=== PATIENT | male | born 1960 | race African-American/Black ===

== ENCOUNTER 2017-11-30 | Emergency (ER) | payer OTHER ==
--- OUTSIDE RECORDS SUMMARY | 2017-11-30 08:54 | XMS REPORT | Clinical Summary ---
:1960 Author Organization [facility] Address [address] [place] [address] Care Team Providers Name Role Phone Bebo Angel MD Primary Care Provider Allergies Active Allergy Reactions Severity Noted Date Comments Amoxicillin-Pot Clavulanate 07/30/2016 Ciprofloxacin 07/30/2016 Current Medications Prescription Sig. Disp. Refills Start Date End Date Status citalopram (CeleXA) Take 40 mg Active 40 MG tablet by mouth daily. ALPRAZolam (XANAX) Take 0.5 mg Active 0.5 MG tablet by mouth as needed for anxiety. chlorproMAZINE Take 400 mg Active (THORAZINE) 100 MG by mouth tablet nightly. risperiDONE Take 3 mg by Active (RisperDAL) 3 MG mouth daily. tablet omeprazole (PriLOSEC) Take 40 mg Active 40 MG capsule by mouth daily. traZODone 150 mg Take 150 mg Active tablet extended by mouth release 24 hr daily. bisoprolol (ZEBETA) Take 1 90 tablet 1 02/27/2017 Active 10 MG tablet tablet (10 mg total) by mouth daily. bisoprolol (ZEBETA) Take 10 mg 02/27/2017 Discontinued 10 MG tablet by mouth daily. Active Problems Problem Noted Date Trigger finger of right thumb 03/19/2017 Tendinitis of finger 03/19/2017 Anxiety disorder 01/09/2017 Seasonal allergic rhinitis due to pollen 07/30/2016 Essential hypertension 08/26/2005 Schizophrenia Encounters Date Type Specialty Care Team Description 06/20/2017 Telephone Family Medicine Bebo Angel MD 06/19/2017 Telephone Internal Medicine Bebo Angel, Other osteoarthritis MD involving multiple joints (Primary Dx) 06/04/2017 Telephone Internal Medicine Bebo Angel MD 05/07/2017 Office Visit Orthopedic Surgery Matt Minaya, Trigger finger of right thumb (Primary Dx); Thumb pain, right; Tendinitis of finger 04/12/2017 Telephone Internal Medicine Bebo Angel MD 03/19/2017 Office Visit Orthopedic Surgery Matt Minaya, Trigger finger of right thumb (Primary Dx); Thumb pain, right; Tendinitis of finger 02/27/2017 Office Visit Internal Medicine Bebo Angel, Essential hypertension (Primary Dx); Thumb pain, right; Other schizophrenia; Anxiety disorder, unspecified type; Routine general medical examination at a health care facility 01/09/2017 Lab Lab Bebo Angel, Essential hypertension 01/09/2017 Office Visit Internal Medicine Bebo Angel, Essential hypertension (Primary Dx); CKD (chronic kidney disease), stage 2 (mild); Anxiety disorder, unspecified type; Schizophrenia, unspecified type after 11/29/2016 Family History Medical History Relation Name Comments Diabetes Brother Heart disease Brother Diabetes Father Diabetes Mother Hypertension Mother Relation Name Status Comments Brother Father Mother Social History Tobacco Use Types Packs/Day Years Used Date Never Smoker Alcohol Use Drinks/Week oz/Week Comments No Sex Assigned at Date Recorded Not on file Last Filed Vital Signs Vital Sign Reading Time Taken Blood Pressure 140/86 02/27/2017 11:58 AM CDT Pulse 79 02/27/2017 11:41 AM CDT Temperature 36.7 C (98 F) 01/09/2017 11:56 AM CDT Respiratory Rate 16 02/27/2017 11:41 AM CDT Oxygen Saturation 99% 02/27/2017 11:41 AM CDT Inhaled Oxygen Concentration - - Weight 95.3 kg (210 lb) 02/27/2017 11:41 AM CDT Height 170.2 cm (5' 7") 02/27/2017 11:41 AM CDT Body Mass Index 32.89 02/27/2017 11:41 AM CDT Plan of Treatment Health Maintenance Due Date Last Done Comments COLONOSCOPY 2008 INFLUENZA VACCINE 03/26/2018 Procedures Procedure Name Priority Date/Time Associated Diagnosis Comments ND INJECT TENDON Routine 05/07/2017 9:57 AM Thumb pain, right Results for this SHEATH/LIGAMENT CDT Trigger finger of procedure are in right thumb the results Tendinitis of finger section. ND INJECT TENDON Routine 03/20/2017 4:38 PM Trigger finger of Results for this SHEATH/LIGAMENT CDT right thumb procedure are in Tendinitis of finger the results section. after 11/29/2016 Results US Renal (05/14/2017 9:45 AM) Specimen Performing Laboratory [facility] [address] [place] [address] Narrative EXAMINATION:US RENAL CLINICAL HISTORY:N18.2 Chronic kidney diseasestage 2 (mild), Elevated abnormal renal function tests COMPARISON:None. FINDINGS: There is increased echogenicity of left renal cortex. There is no evidence of any solid renal mass, calculi, or hydronephrosis. The right kidney is absent. The left kidney qzshqtei49.3 x 6.6 x 5.3cm. Cortical thickness: 1.8 cm. The urinary bladder is unremarkable. IMPRESSION: 1. Absence of right kidney, congenital as per clinical information. 2. There is increased echogenicity of left renal cortex suggestive for chronic medical kidney disease. 3. Negative for nephrolithiasis or hydronephrosis. [id number] Procedure Note Interface, Radiology Results Incoming - 05/14/2017 10:30 AM CDT EXAMINATION: US RENAL CLINICAL HISTORY: N18.2 Chronic kidney disease stage 2 (mild), Elevated abnormal renal function tests COMPARISON: None. FINDINGS: There is increased echogenicity of left renal cortex. There is no evidence of any solid renal mass, calculi, or hydronephrosis. The right kidney is absent. The left kidney measures 12.3 x 6.6 x 5.3 cm. Cortical thickness: 1.8 cm. The urinary bladder is unremarkable. IMPRESSION: 1. Absence of right kidney, congenital as per clinical information. 2. There is increased echogenicity of left renal cortex suggestive for chronic medical kidney disease. 3. Negative for nephrolithiasis or hydronephrosis. [id number] Hand/Upper Extremity Injection/Arthrocentesis (05/07/2017 9:57 AM) Narrative Matt Minaya MD 05/07/20179:57 AM Hand/Upper Extremity Injection/Arthrocentesis Date/Time: 05/07/2017 9:38 AM Consent given by: patient Supporting Documentation Indications: pain Procedure Details Condition: trigger finger Site: R thumb Location: - R thumb A1 Right side: Needle size: 25 G Approach: anterior Right thumb medications administered: 1 mL lidocaine 10 mg/mL (1 %); 6 mg betamethasone acetate & sodium phosphate 6 mg/mL Patient tolerance: patient tolerated the procedure well with no immediate complications Injection Type: tendon sheath Hand/Upper Extremity Injection/Arthrocentesis (03/20/2017 4:38 PM) Narrative Matt Minaya MD 03/20/20174:38 PM Hand/Upper Extremity Injection/Arthrocentesis Date/Time: 03/19/2017 11:30 AM Consent given by: patient Supporting Documentation Indications: pain Procedure Details Condition: trigger finger Site: R thumb Location: - R thumb A1 Right side: Needle size: 25 G Approach: anterior Right thumb medications administered: 6 mg betamethasone acet,sod phos 6 mg/mL; 1 mL lidocaine 10 mg/mL (1 %) Patient tolerance: patient tolerated the procedure well with no immediate complications Injection Type: tendon sheath XR Finger 2+ Vw Right (03/19/2017 9:37 AM) Specimen Performing Laboratory [address] [address] Narrative 3 views right thumb in good penetrance and quality with out any acute obvious fractures, dislocations or calcifications unless HPI states otherwise. Urinalysis, automated with microscopy (01/09/2017 12:26 PM) Component Value Ref Range Color, UA YELLOW YELLOW Appearance CLOUDY (A) CLEAR Specific gravity, urine 1.022 1.001 - 1.035 pH, urine 8.0 5.0 - 8.0 Glucose, urine NEGATIVE NEGATIVE Bilirubin, UA NEGATIVE NEGATIVE Ketones, UA NEGATIVE NEGATIVE Occult blood, urine NEGATIVE NEGATIVE Protein, UA TRACE (A) NEGATIVE Nitrite, UA NEGATIVE NEGATIVE Leukocyte esterase, UA NEGATIVE NEGATIVE WBC, UA NONE SEEN < OR=5 /HPF RBC, UA 0-2 < OR=2 /HPF Squamous epithelial cells, UA NONE SEEN < OR=5 /HPF Bacteria, UA NONE SEEN NONE SEEN /HPF Hyaline casts, UA NONE SEEN NONE SEEN /LPF Specimen Performing Laboratory [facility] Basic metabolic panel (01/09/2017 12:26 PM) Component Value Ref Range Glucose 73 65 - 99 mg/dL Comment: Fasting reference interval BUN, whole blood 16 7 - 25 mg/dL Creatinine 1.20 0.70 - 1.33 mg/dL Comment: For patients >49 years of age, the reference limit for Creatinine is approximately 13% higher for people identified as -Mosotho. EGFR Non-Afr. Mosotho 66 > OR=60 mL/min/1.73m2 EGFR 77 > OR=60 mL/min/1.73m2 BUN/creatinine ratio NOT APPLICABLE 6 - 22 (calc) Sodium 138 135 - 146 mmol/L Potassium 4.2 3.5 - 5.3 mmol/L Chloride 106 98 - 110 mmol/L CO2 28 20 - 31 mmol/L Calcium 9.2 8.6 - 10.3 mg/dL Specimen Performing Laboratory [facility] after 11/29/2016 Insurance Payer Benefit Plan / Group Subscriber ID Type Phone Address MEDICARE MEDICARE PART A AND B xxxxxxxxxx Medicare [place], [place] Home: [address] [facility] [phone] [address]
--- NOTE | 2017-11-30 10:18 | EDPHYS ---
Physician Documentation [facility] Name: Lucille King Age: 57 yrs Sex: Male : 1960 Arrival Date: 11/30/2017 Time: 08:56 Bed 19 Private MD: ED Physician Daniel Joshi HPI: 11/30 09:46 This 57 yrs old Black Male presents to ER via Ambulatory with complaints of kav Hemorrhoids, Asthma Exacerbation, Cough. 10:05 Onset: The symptoms/episode began/occurred 3 day(s) ago. Associated signs and symptoms: kav Pertinent positives: cough, earache, sore throat, Pertinent negatives: chest pain, fever, headache, nasal discharge, shortness of breath, vomiting, wheezing. 10:05 The patient or guardian reports cough, that is intermittent, described as mild, with no kav sputum. Modifying factors: The symptoms are alleviated by nothing. the symptoms are aggravated by nothing. Associated signs and symptoms: Pertinent positives: sore throat, Pertinent negatives: chest pain, nausea, rhinorrhea, vomiting. Severity of symptoms: At their worst the symptoms were mild just prior to arrival. The patient has not experienced similar symptoms in the past. The patient has not recently seen a physician. presents with chief c/o acute onset of non-productive cough. Historical: - Allergies: 09:24 Bactrim; ss 09:24 Cipro; ss - Home Meds: 10:15 Albuterol Inhl [Active]; citalopram 40 mg tab 1 tab once daily [Active]; Flovent Inhl hj [Active]; Omeprazole Oral [Active]; Respiradone [Active]; simvastatin 20 mg Oral tab 1 tab once daily [Active]; thorazine 200 mg daily [Active]; Xanax 0.5 mg Oral tab 1 tab 3 times per day [Active]; Zebeta 10 mg Oral tab 1 tab once daily [Active]; - PMHx: 09:24 Asthma; Depression; Hyperlipidemia; Hypertension; Anxiety; ss - PSHx: 09:24 None; ss - Immunization history:: Adult Immunizations unknown. - Social history:: Smoking status: Patient/guardian denies using tobacco. - Family history:: not pertinent. - Hospitalizations: : No recent hospitalization is reported. ROS: 10:07 Constitutional: Negative for fever, chills, and weight loss, Eyes: Negative for injury, kav pain, redness, and discharge, ENT: Negative for injury, pain, and discharge, Neck: Negative for injury, pain, and swelling, Cardiovascular: Negative for chest pain, palpitations, and edema, Abdomen/GI: Negative for abdominal pain, nausea, vomiting, diarrhea, and constipation, Back: Negative for injury and pain, : Negative for injury, bleeding, discharge, and swelling, MS/Extremity: Negative for injury and deformity, Skin: Negative for injury, rash, and discoloration, Neuro: Negative for headache, weakness, numbness, tingling, and seizure, Psych: Negative for depression, anxiety, suicide ideation, homicidal ideation, and hallucinations, Allergy/Immunology: Negative for hives, rash, and allergies, Hematologic/Lymphatic: Negative for swollen nodes, abnormal bleeding, and unusual bruising. 10:12 Abdomen/GI: Positive for hemorrhoids. kav Exam: 10:12 Constitutional: This is a well developed, well nourished patient who is awake, alert, kav and in no acute distress. Head/Face: Normocephalic, atraumatic. Eyes: Pupils equal round and reactive to light, extra-ocular motions intact. Lids and lashes normal. Conjunctiva and sclera are non-icteric and not injected. Cornea within normal limits. Periorbital areas with no swelling, redness, or edema. ENT: Nares patent. No nasal discharge, no septal abnormalities noted. Tympanic membranes are normal and external auditory canals are clear. Oropharynx with no redness, swelling, or masses, exudates, or evidence of obstruction, uvula midline. Mucous membranes moist. Neck: Trachea midline, no thyromegaly or masses palpated, and no cervical lymphadenopathy. Supple, full range of motion without nuchal rigidity, or vertebral point tenderness. No Meningismus. Chest/axilla: Normal chest wall appearance and motion. Nontender with no deformity. No lesions are appreciated. Cardiovascular: Regular rate and rhythm with a normal S1 and S2. No gallops, murmurs, or rubs. Normal PMI, no JVD. No pulse deficits. Abdomen/GI: Soft, non-tender, with normal bowel sounds. No distension or tympany. No guarding or rebound. No evidence of tenderness throughout. Back: No spinal tenderness. No costovertebral tenderness. Full range of motion. Skin: Warm, dry with normal turgor. Normal color with no rashes, no lesions, and no evidence of cellulitis. MS/ Extremity: Pulses equal, no cyanosis. Neurovascular intact. Full, normal range of motion. Neuro: Awake and alert, GCS 15, oriented to person, place, time, and situation. Cranial nerves II-XII grossly intact. Motor strength 5/5 in all extremities. Sensory grossly intact. Cerebellar exam normal. Normal gait. Psych: Awake, alert, with orientation to person, place and time. Behavior, mood, and affect are within normal limits. 10:12 Respiratory: the patient does not display signs of respiratory distress, Respirations: normal, no acute changes, Breath sounds: decreased breath sounds, that are mild, are located in both bases. 10:12 Abdomen/GI: Inspection: abdomen appears normal, Bowel sounds: active, Palpation: kav abdomen is soft and non-tender, Rectal exam: hemorrhoid(s), external. Vital Signs: 09:24 BP 155 / 102; Pulse 97; Resp 16; Temp 97.5(TE); Pulse Ox 95% on R/A; Weight 92.08 kg; ss Height 5 ft. 7 in. (170.18 cm); Pain 7/10; 09:24 Body Mass Index 31.79 (92.08 kg, 170.18 cm) ss MDM: 09:56 Patient medically screened. kav 10:12 Differential diagnosis: bronchitis, flu, URI. Data reviewed: vital signs, nurses notes. kav Administered Medications: No medications were administered Disposition: 18:37 Co-signature as Attending Physician, Daniel Joshi MD. rn Disposition: 11/30/17 10:17 Discharged to Home. Impression: Acute bronchitis, unspecified, Other hemorrhoids. - Condition is Stable. - Discharge Instructions: Acute Bronchitis, [id number]-Ixmv, Hemorrhoids, Lbcm-eg-Alwy. - Prescriptions for Zithromax Z- Tanner 250 mg Oral Tablet - take 1 tablet by ORAL route as directed for 5 days Day 1 - take two (2) tablets one time. Day 2, 3, 4 , 5 take one (1) tablet once daily.; 6 tablet. Anusol- HC 25 mg Rectal Suppository - insert 1 suppository by RECTAL route every 12 hours As needed; 20 suppository. Medrol (Tanner) 4 mg Oral Tablets, Dose Pack - take 1 tablet by ORAL route as directed - follow package instructions; 1 packet. - Medication Reconciliation Form, Thank You Letter, Antibiotic Education, Prescription Opioid Use form. - Follow up: Private Physician; When: 5 - 6 days; Reason: If symptoms return, Recheck today's complaints, Continuance of care, Re-evaluation by your physician. - Problem is new. - Symptoms are unchanged. Signatures: Tamera Hinojosa, Daniel Lockett MD MD rn Smirch, Shelby, RN RN Zachary Lares RN RN
--- NOTE | 2017-11-30 10:18 | ER ---
Nurse's Notes [facility] Name: Lucille King Age: 57 yrs Sex: Male : 1960 Arrival Date: 11/30/2017 Time: 08:56 Bed 19 Private MD: Diagnosis: Acute bronchitis, unspecified;Other hemorrhoids Presentation: 11/30 09:22 Presenting complaint: Patient states: "I was going to come last night, because when I ss cough it hurt, but then I started having shortness of breath, so then I decided to come in. I also have hemorrhoid pain also, and nothing seems to be working for that.". Transition of care: patient was not received from another setting of care. Onset of symptoms is unknown. Care prior to arrival: None. 09:22 Method Of Arrival: Ambulatory ss 09:22 Acuity: DANISHA 4 ss Triage Assessment: 10:13 General: Appears in no apparent distress. uncomfortable, Behavior is calm, cooperative, hj appropriate for age. Pain: Complains of pain in rectum. EENT: No signs and/or symptoms were reported regarding the EENT system. Neuro: Level of Consciousness is awake, alert, obeys commands, Oriented to person, place, time, situation, Appropriate for age. Cardiovascular: Capillary refill < 3 seconds Patient's skin is warm and dry. Respiratory: Airway is patent Respiratory effort is even, unlabored, Respiratory pattern is regular, symmetrical. GI: No signs and/or symptoms were reported involving the gastrointestinal system. : No signs and/or symptoms were reported regarding the genitourinary system. Derm: No signs and/or symptoms reported regarding the dermatologic system. Musculoskeletal: No signs and/or symptoms reported regarding the musculoskeletal system. Historical: - Allergies: 09:24 Bactrim; ss 09:24 Cipro; ss - Home Meds: 10:15 Albuterol Inhl [Active]; citalopram 40 mg tab 1 tab once daily [Active]; Flovent Inhl hj [Active]; Omeprazole Oral [Active]; Respiradone [Active]; simvastatin 20 mg Oral tab 1 tab once daily [Active]; thorazine 200 mg daily [Active]; Xanax 0.5 mg Oral tab 1 tab 3 times per day [Active]; Zebeta 10 mg Oral tab 1 tab once daily [Active]; - PMHx: 09:24 Asthma; Depression; Hyperlipidemia; Hypertension; Anxiety; ss - PSHx: 09:24 None; ss - Immunization history:: Adult Immunizations unknown. - Social history:: Smoking status: Patient/guardian denies using tobacco. - Family history:: not pertinent. - Hospitalizations: : No recent hospitalization is reported. Screenin:12 Abuse screen: Denies threats or abuse. Denies injuries from another. Nutritional hj screening: No deficits noted. Tuberculosis screening: No symptoms or risk factors identified. Fall Risk None identified. Assessment: 10:16 Reassessment: see triage for assessment;. hj Vital Signs: 09:24 BP 155 / 102; Pulse 97; Resp 16; Temp 97.5(TE); Pulse Ox 95% on R/A; Weight 92.08 kg; ss Height 5 ft. 7 in. (170.18 cm); Pain 03/04; 09:24 Body Mass Index 31.79 (92.08 kg, 170.18 cm) ED Course: 08:56 Patient arrived in ED. sb2 09:24 Triage completed. ss 09:24 Arm band placed on right wrist. 09:46 Tam[facility]osa F[facility] kav 09:46 Daniel Joshi MD is Attending Physician. kav 10:12 Zachary Lares, KEELEY is Primary Nurse. hj 10:14 Patient has correct armband on for positive identification. Bed in low position. Call hj light in reach. Side rails up X 1. 10:31 No provider procedures requiring assistance completed. Patient did not have IV access hj during this emergency room visit. Administered Medications: No medications were administered Outcome: 10:17 Discharge ordered by . kav 10:31 Discharged to home ambulatory. hj 10:31 Condition: stable 10:31 Discharge instructions given to patient, Instructed on discharge instructions, follow up and referral plans. medication usage, Demonstrated understanding of instructions, follow-up care, medications, Prescriptions given X 3. 10:31 Patient left the ED. hj Signatures: Tamera Hinojosa FNP FNP kav Smirch, Shelby, RN RN Zachary Lares, KEELEY RN Olga Whelan sb2
== END 2017-11-30 10:31 | disposition home or self-care (01) ==
CPT/HCPCS: 99282

== ENCOUNTER 2017-12-06 20:04 | Emergency (ER) | payer OTHER ==
--- OUTSIDE RECORDS SUMMARY | 2017-12-06 20:07 | XMS REPORT | Clinical Summary ---
:1960 Author Organization [facility] Address [address] [place] [address] Care Team Providers Name Role Phone Bebo [...] disorder, unspecified type; Schizophrenia, unspecified type after 12/05/2016 Family History Medical History Relation Name Comments [...] Procedure Name Priority Date/Time Associated Diagnosis Comments MD INJECT TENDON Routine 05/07/2017 9:57 AM Thumb pain, right Results for this SHEATH/LIGAMENT CDT Trigger finger of procedure are in right thumb the results Tendinitis of finger section. MD INJECT TENDON Routine 03/20/2017 4:38 PM Trigger finger of Results for this SHEATH/LIGAMENT CDT right thumb procedure are in Tendinitis of finger the results section. after 12/05/2016 Results US Renal (05/14/2017 9:45 AM) Specimen Performing Laboratory [facility] [address] [place] [address] Narrative EXAMINATION:US RENAL CLINICAL HISTORY:N18.2 Chronic kidney diseasestage 2 (mild), Elevated abnormal renal function tests COMPARISON:None. FINDINGS: There is increased echogenicity of left renal cortex. There is no evidence of any solid renal mass, calculi, or hydronephrosis. The right kidney is absent. The left kidney .3 x 6.6 x 5.3cm. Cortical thickness: 1.8 cm. The urinary bladder is unremarkable. IMPRESSION: 1. Absence of right kidney, congenital as per clinical information. 2. There is increased echogenicity of left renal cortex suggestive for chronic medical kidney disease. 3. Negative for nephrolithiasis or hydronephrosis. [id number] Procedure Note Interface, Radiology Results Incoming - [...] disease. 3. Negative for nephrolithiasis or hydronephrosis. [id number] Hand/Upper Extremity Injection/Arthrocentesis (05/07/2017 9:57 AM) Narrative [...] Right (03/19/2017 9:37 AM) Specimen Performing Laboratory [address] [address] Narrative 3 views right thumb in good [...] approximately 13% higher for people identified as -Mauritian. EGFR Non-Afr. Mauritian 66 > OR=60 mL/min/1.73m2 EGFR 77 > OR=60 mL/min/1.73m2 BUN/creatinine ratio NOT APPLICABLE 6 - 22 (calc) Sodium 138 135 - 146 mmol/L Potassium 4.2 3.5 - 5.3 mmol/L Chloride 106 98 - 110 mmol/L CO2 28 20 - 31 mmol/L Calcium 9.2 8.6 - 10.3 mg/dL Specimen Performing Laboratory [facility] after 12/05/2016 Insurance Payer Benefit Plan / Group Subscriber ID Type Phone Address MEDICARE MEDICARE PART A AND B xxxxxxxxxx Medicare [place], [place] Home: [address] [facility] [phone] [address]
[2017-12-06 21:10] LABS: Urine Blood 1+ (NEG); Urine Glucose NEGATIVE (NEG); Urine Protein 1+ (NEG); Urine Specific Gravity 1.025 (1.005-1.030); Urine pH 5.5 (5.0-7.0)
[2017-12-06] MEDS ORDERED: ALBUTEROL 2.5 MG/3 ML NEB SOL ONE (21:37)
[2017-12-06] MEDS ORDERED: METHYLPREDNISOLONE 125 MG INJ ONE (21:37)
--- NOTE | 2017-12-06 21:46 | RAD REPORT ---
EXAM DESCRIPTION: CT - Stone Protocol - 12/06/2017 9:37 pm CLINICAL HISTORY: Flank pain. Hematuria COMPARISON: None. TECHNIQUE: Axial images were obtained without oral or IV contrast. Lack of contrast limits solid org an and vascular assessment. The [id number] spans the entirety of the system partially obscuring uppermost abdomen and lung bases. Coronal reformatted images were obtained and reviewed. All CT scans are performed using dose optimization technique as appropriate and may include automated exposure control or mA/KV adjustment according to patient size. FINDINGS: The lower lung chen are clear. Imaged portions of the liver and spleen show no suspicious findings on non-contrast imaging. The panc reas and adrenal glands are normal. No pathologic lymphadenopathy in the abdomen or pelvis. Marked atrophy of the right kidney is noted. The left kidney is hypertrophied without stone or hydron ephrosis. No bowel obstruction, free air, free fluid or abscess. Normal appendix noted.Small fat containing rig ht inguinal hernia. No significant bony abnormality. IMPRESSION: Markedly atrophic right kidney. Hypertrophy of the left kidney without stone or hydronep hrosis.
[2017-12-06 22:14] LABS: Absolute Lymphocytes (CBC) 3.3 K/uL (0.7-4.9); Absolute Monocytes 1.1 K/uL (0.1-1.3); Absolute Neutrophil 5.5 K/uL (1.8-8.0); Basophils % 0.8 % (0-1.3); Eosinophils % 1.5 % (0-4.4); Hematocrit 45.8 % (39.6-49.0); Lymphocytes % 32.7 % (15.3-44.8); MCH 29.7 pg (27.0-35.0); MCV 85.4 fL (80-100); MPV 7.6 fL (7.6-11.3); Monocytes % 10.4 % (3.3-12.3); RBC Red Blood Cell Count 5.36 M/uL (4.33-5.43)
[2017-12-06 22:24] LABS: Urine Bacteria NONE SEEN /HPF (NONE SEEN); Urine Culture Reflex Order REFLEXED
--- NOTE | 2017-12-06 22:50 | ER ---
Nurse's Notes [facility] Name: Lucille King Age: 57 yrs Sex: Male : 1960 Arrival Date: 12/06/2017 Time: 20:14 Bed 8 Private MD: Diagnosis: Hematuria;Mild intermittent asthma with (acute) exacerbation Presentation: 12/06 20:40 Presenting complaint: Patient states: I have been having SOB and cough since yesterday la1 and I have been having blood in my urine and pain in my lower abd for the last 2 days. Transition of care: patient was not received from another setting of care. Onset of symptoms was December 06, 2017. Care prior to arrival: None. 20:40 Method Of Arrival: Ambulatory la1 20:40 Acuity: DANISHA 3 la1 Historical: - Allergies: 20:41 Bactrim; la1 20:41 Cipro; la1 - PMHx: 20:41 Anxiety; Asthma; Depression; Hyperlipidemia; Hypertension; la1 - Immunization history:: Adult Immunizations up to date. - Social history:: Smoking status: Patient/guardian denies using tobacco. Screenin:03 Abuse screen: Denies threats or abuse. Denies injuries from another. Nutritional lp1 screening: No deficits noted. Tuberculosis screening: No symptoms or risk factors identified. Fall Risk None identified. Assessment: 21:01 General: Appears in no apparent distress. Behavior is calm, cooperative, appropriate lp1 for age. Pain: Complains of pain in right iliac crest. Neuro: Level of Consciousness is awake, alert, obeys commands. Cardiovascular: Patient's skin is warm and dry. Respiratory: Reports cough that is productive, Airway is patent Trachea midline Respiratory effort is even, unlabored, Respiratory pattern is regular, Breath sounds are coarse. GI: No signs and/or symptoms were reported involving the gastrointestinal system. : No signs and/or symptoms were reported regarding the genitourinary system. EENT: No signs and/or symptoms were reported regarding the EENT system. Derm: Skin is intact, Skin is dry, Skin is normal. Musculoskeletal: Circulation, motion, and sensation intact. 22:00 Reassessment: Patient appears in no apparent distress at this time. Patient and/or lp1 family updated on plan of care and expected duration. Pain level reassessed. Patient is alert, oriented x 3, equal unlabored respirations, skin warm/dry/pink. 23:02 Reassessment: Patient appears in no apparent distress at this time. Patient is alert, lp1 oriented x 3, equal unlabored respirations, skin warm/dry/pink. Patient states feeling better. Patient states symptoms have improved. 23:05 Reassessment: PT D/C HOME AMBULATORY, EXPRESSING RELIEF OF S/S, DX WITH MILD ASTHMA bp EXACERBATION. Vital Signs: 20:41 BP 143 / 97; Pulse 72; Resp 16; Temp 97.0; Pulse Ox 100% on R/A; Weight 91.63 kg; la1 Height 5 ft. 7 in. (170.18 cm); 21:00 BP 142 / 108; Pulse 86; Resp 18; Pulse Ox 98% on R/A; lp1 22:00 BP 134 / 88; Pulse 58; Resp 18; Pulse Ox 100% on R/A; lp1 23:00 BP 143 / 96; Pulse 74; Resp 16; Pulse Ox 97% ; bp 20:41 Body Mass Index 31.64 (91.63 kg, 170.18 cm) la1 ED Course: 20:14 Patient arrived in ED. do 20:41 Triage completed. la1 20:42 Arm band placed on left wrist. la1 20:44 Benoit Gaviria, RN is Primary Nurse. bp 21:00 Urine collected: clean catch specimen, clear. lp1 21:03 Demetra Albert, RN is Primary Nurse. lp1 21:03 Patient has correct armband on for positive identification. Placed in gown. Pulse ox lp1 on. NIBP on. 21:09 Pillo Prajapati PA is PHCP. jr8 21:09 Anthony Cook MD is Attending Physician. jr8 21:37 CT Stone Protocol In Process Unspecified. EDMS 21:40 X-ray completed. Portable x-ray completed in exam room. Patient tolerated procedure mh1 well. 21:41 XRAY Chest (1 view) In Process Unspecified. EDMS 21:45 Inserted saline lock: 20 gauge in right antecubital area, using aseptic technique. bp Blood collected. 23:02 No provider procedures requiring assistance completed. lp1 23:05 IV discontinued, intact, bleeding controlled, No redness/swelling at site. Pressure bp dressing applied. Administered Medications: 21:28 CANCELLED (Physician Discretion): predniSONE 60 mg PO once jrSaundra 21:45 Drug: Albuterol 2.5 mg Route: Inhalation; bp 21:45 Drug: SOLU-Medrol 125 mg Route: IVP; Site: right antecubital; bp 23:03 Follow up: Response: No adverse reaction lp1 Outcome: 22:49 Discharge ordered by . melanie 23:05 Discharged to home ambulatory. bp 23:05 Condition: stable 23:05 Discharge instructions given to patient, Instructed on discharge instructions, follow up and referral plans. medication usage, Demonstrated understanding of instructions, follow-up care, medications, Prescriptions given X 2. 23:07 Patient left the ED. bp Signatures: Dispatcher [employer] EDMS Hetal Sow 1 Demetra Albert RN RN lp1 Pillo Prajapati PA PA jr8 Jonh Posey RN RN la1 Ivana Winkler Brian RN RN bp Corrections: (The following items were deleted from the chart) 23:02 22:00 Reassessment: Patient appears in no apparent distress at this time. Patient is lp1 alert, oriented x 3, equal unlabored respirations, skin warm/dry/pink. Patient states feeling better. Patient states symptoms have improved. lp1
--- NOTE | 2017-12-06 22:50 | EDPHYS ---
Physician Documentation [facility] Name: Lucille King Age: 57 yrs Sex: Male : 1960 Arrival Date: 12/06/2017 Time: 20:14 Bed 8 Private MD: ED Physician Anthony Cook HPI: 12/06 21:59 This 57 yrs old Black Male presents to ER via Ambulatory with complaints of Asthma jr8 Exacerbation. 21:59 The patient presents to the emergency department with wheezing, Current therapy: jr8 albuterol inhaler. Onset: The symptoms/episode began/occurred gradually, 2 day(s) ago, and became worse and became persistent. Modifying factors: The symptoms are alleviated by nothing, the symptoms are aggravated by nothing. Associated signs and symptoms: Pertinent positives: cough . Severity of symptoms: At their worst the symptoms were mild in the emergency department the symptoms are unchanged. The patient has experienced similar episodes in the past, a few times. The patient has not recently seen a physician. stated that he is also having blood in urine. has had this in past and is being seen by urology. Has BPH and intrarenal stones. Has had cystoscopy with no abnormal findings . Historical: - Allergies: 20:41 Bactrim; la1 20:41 Cipro; la1 - PMHx: 20:41 Anxiety; Asthma; Depression; Hyperlipidemia; Hypertension; la1 - Immunization history:: Adult Immunizations up to date. - Social history:: Smoking status: Patient/guardian denies using tobacco. ROS: 21:59 Eyes: Negative for injury, pain, redness, and discharge, ENT: Negative for injury, jr8 pain, and discharge, Neck: Negative for injury, pain, and swelling, Cardiovascular: Negative for chest pain, palpitations, and edema, Abdomen/GI: Negative for abdominal pain, nausea, vomiting, diarrhea, and constipation, Back: Negative for injury and pain, MS/Extremity: Negative for injury and deformity, Skin: Negative for injury, rash, and discoloration, Neuro: Negative for headache, weakness, numbness, tingling, and seizure. 21:59 Respiratory: Positive for cough, shortness of breath, wheezing. 21:59 : Positive for hematuria. Exam: 21:59 Eyes: Pupils equal round and reactive to light, extra-ocular motions intact. Lids and jr8 lashes normal. Conjunctiva and sclera are non-icteric and not injected. Cornea within normal limits. Periorbital areas with no swelling, redness, or edema. ENT: Nares patent. No nasal discharge, no septal abnormalities noted. Tympanic membranes are normal and external auditory canals are clear. Oropharynx with no redness, swelling, or masses, exudates, or evidence of obstruction, uvula midline. Mucous membranes moist. Neck: Trachea midline, no thyromegaly or masses palpated, and no cervical lymphadenopathy. Supple, full range of motion without nuchal rigidity, or vertebral point tenderness. No Meningismus. Cardiovascular: Regular rate and rhythm with a normal S1 and S2. No gallops, murmurs, or rubs. Normal PMI, no JVD. No pulse deficits. Abdomen/GI: Soft, non-tender, with normal bowel sounds. No distension or tympany. No guarding or rebound. No evidence of tenderness throughout. Back: No spinal tenderness. No costovertebral tenderness. Full range of motion. Skin: Warm, dry with normal turgor. Normal color with no rashes, no lesions, and no evidence of cellulitis. MS/ Extremity: Pulses equal, no cyanosis. Neurovascular intact. Full, normal range of motion. Neuro: Awake and alert, GCS 15, oriented to person, place, time, and situation. Cranial nerves II-XII grossly intact. Motor strength 5/5 in all extremities. Sensory grossly intact. Cerebellar exam normal. Normal gait. 21:59 Respiratory: the patient does not display signs of respiratory distress, Respirations: normal, symetrical, no use of accessory muscles, no grunting, no evidence of nasal flaring, no appreciated paradoxical movements, no prolonged exhalations, no pursed lip breathing, no retractions, no shallow respirations, no splinting, no tachypnea, Breath sounds: rhonchi, that are mild, are heard diffusely, wheezing: expiratory that is moderate, is heard diffusely. Vital Signs: 20:41 BP 143 / 97; Pulse 72; Resp 16; Temp 97.0; Pulse Ox 100% on R/A; Weight 91.63 kg; la1 Height 5 ft. 7 in. (170.18 cm); 21:00 BP 142 / 108; Pulse 86; Resp 18; Pulse Ox 98% on R/A; lp1 22:00 BP 134 / 88; Pulse 58; Resp 18; Pulse Ox 100% on R/A; lp1 23:00 BP 143 / 96; Pulse 74; Resp 16; Pulse Ox 97% ; bp 20:41 Body Mass Index 31.64 (91.63 kg, 170.18 cm) la1 MDM: 21:09 Patient medically screened. jr8 22:47 Data reviewed: vital signs, nurses notes, lab test result(s), radiologic studies, CT jr8 scan, plain films, and as a result, I will discharge patient. Data interpreted: Pulse oximetry: on room air is 100 %. Interpretation: normal. Counseling: I had a detailed discussion with the patient and/or guardian regarding: the historical points, exam findings, and any diagnostic results supporting the discharge/admit diagnosis, lab results, radiology results, the need for outpatient follow up, a family practitioner, a urologist, to return to the emergency department if symptoms worsen or persist or if there are any questions or concerns that arise at home. Response to treatment: the patient's symptoms have markedly improved after treatment. 12/06 20:59 Order name: Urine Dipstick--Ancillary (enter results); Complete Time: 21:17 rg2 12/06 21:28 Order name: Urine Microscopic Only; Complete Time: 22:30 jr8 12/06 21:28 Order name: CBC with Diff; Complete Time: 22:47 jr8 12/06 21:28 Order name: Basic Metabolic Panel; Complete Time: 22:20 jr8 12/06 21:28 Order name: XRAY Chest (1 view) [facility] 12/06 22:26 Order name: Urine Culture EDWA 12/06 21:28 Order name: IV; Complete Time: 22:11 jr8 12/06 21:28 Order name: CT Stone Protocol; Complete Time: 21:48 jr8 Administered Medications: 21:28 CANCELLED (Physician Discretion): predniSONE 60 mg PO once jr8 21:45 Drug: Albuterol 2.5 mg Route: Inhalation; bp 21:45 Drug: SOLU-Medrol 125 mg Route: IVP; Site: right antecubital; bp 23:03 Follow up: Response: No adverse reaction lp1 Disposition: 12/07 05:42 Co-signature as Attending Physician, Anthony Cook MD. ma2 Disposition: 12/06/17 22:49 Discharged to Home. Impression: Hematuria, Mild intermittent asthma with (acute) exacerbation. - Condition is Stable. - Discharge Instructions: Asthma, Adult, Hematuria, Adult. - Prescriptions for Prednisone 20 mg Oral Tablet - take 2 tablet by ORAL route once daily for 5 days; 10 tablet. Albuterol Sulfate 90 mcg/actuation - inhale 1-2 puff by INHALATION route every 4-6 hours; 1 Inhaler. - Medication Reconciliation Form, Thank You Letter, Antibiotic Education, Prescription Opioid Use form. - Follow up: Private Physician; When: 2 - 3 days; Reason: Recheck today's complaints, Continuance of care, Re-evaluation by your physician. - Problem is new. - Symptoms have improved. Signatures: Dispatcher [employer] EDMS Pillo Prajapati PA PA jr8 Jonh Posey RN RN la1 Benoit Gaviria RN RN bp Anthony Cook MD MD ma2 Demetra Albert RN lp1 Corrections: (The following items were deleted from the chart) 12/06 21:28 21:28 predniSONE 60 mg PO once ordered. jr8 jr8
--- NOTE | 2017-12-07 07:22 | RAD REPORT ---
EXAM DESCRIPTION: RAD - Chest Single View - 12/06/2017 9:43 pm CLINICAL HISTORY: Cough, shortness of breath COMPARISON: October 09 TECHNIQUE: PA chest image was obtained 2133 hours . FINDINGS: Lungs are clear. Lung markings are similar to the comparison. No new mediastinal or hilar process. Heart and vasculature are normal. No measurable pleural effusion and no pneumothorax. No isaías ss bony abnormality seen. No acute aortic findings suspected. IMPRESSION: No acute cardiopulmonary process. No significant interval change.
== END 2017-12-06 23:07 | disposition home or self-care (01) ==
LOC: ER 20:04
DX: J45.21 Mild intermittent asthma with (acute) exacerbation (principal); R05 Cough; I10 Essential (primary) hypertension; Z88.1 Allergy status to other antibiotic agents
CPT/HCPCS: 36415; 71045; 74176; 76377; 80048; 85025; 87086; 87088; 96374; 99284; J2930; 81003; 81015

== ENCOUNTER 2018-01-29 12:26 | Emergency (ER) | payer OTHER ==
--- OUTSIDE RECORDS SUMMARY | 2018-01-29 12:28 | XMS REPORT | Clinical Summary ---
:1960 Author Organization [facility] Address [address] [place] [address] Care Team Providers Name Role Phone Bebo [...] medical examination at a health care facility after 01/28/2017 Family History Medical History Relation Name Comments [...] Pulse 79 02/27/2017 11:41 AM CDT Temperature - - Respiratory Rate 16 02/27/2017 11:41 AM CDT Oxygen Saturation 99% 02/27/2017 11:41 AM CDT Inhaled Oxygen Concentration - - Weight 95.3 kg (210 lb) 02/27/2017 11:41 AM CDT Height 170.2 cm (5' 7") 02/27/2017 11:41 AM CDT Body Mass Index 32.89 02/27/2017 11:41 AM CDT Plan of Treatment Health Maintenance Due Date Last Done Comments COLON CANCER SCREENING 2008 SHINGRIX VACCINE (#1) 2008 INFLUENZA VACCINE 03/26/2018 Procedures Procedure Name Priority Date/Time Associated Diagnosis Comments MN INJECT TENDON Routine 05/07/2017 9:57 AM Thumb pain, right Results for this SHEATH/LIGAMENT CDT Trigger finger of procedure are in right thumb the results Tendinitis of finger section. MN INJECT TENDON Routine 03/20/2017 4:38 PM Trigger finger of Results for this SHEATH/LIGAMENT CDT right thumb procedure are in Tendinitis of finger the results section. after 01/28/2017 Results US Renal (05/14/2017 9:45 AM) Specimen Performing Laboratory [facility] [address] [place] [address] Narrative EXAMINATION:US RENAL CLINICAL HISTORY:N18.2 Chronic kidney diseasestage 2 (mild), Elevated abnormal renal function tests COMPARISON:None. FINDINGS: There is increased echogenicity of left renal cortex. There is no evidence of any solid renal mass, calculi, or hydronephrosis. The right kidney is absent. The left kidney [id number] x 6.6 x 5.3cm. Cortical thickness: 1.8 cm. The urinary bladder is unremarkable. IMPRESSION: 1. Absence of right kidney, congenital as per clinical information. 2. There is increased echogenicity of left renal cortex suggestive for chronic medical kidney disease. 3. Negative for nephrolithiasis or hydronephrosis. [facility] [id number] Procedure Note Interface, Radiology Results Incoming - [...] disease. 3. Negative for nephrolithiasis or hydronephrosis. [id number] Hand/Upper Extremity Injection/Arthrocentesis (05/07/2017 9:57 AM) Narrative [...] Right (03/19/2017 9:37 AM) Specimen Performing Laboratory [facility] [address] [place] [id number] Narrative 3 views right thumb in good penetrance and quality with out any acute obvious fractures, dislocations or calcifications unless HPI states otherwise. after 01/28/2017 Insurance Payer Benefit Plan / Group Subscriber ID Type Phone Address MEDICARE MEDICARE PART A AND B xxxxxxxxxx Medicare [place], [place] Home: [address] [facility] [phone] [id number]
[2018-01-29 14:39] LABS: Absolute Lymphocytes (CBC) 2.3 K/uL (0.7-4.9); Absolute Monocytes 0.9 K/uL (0.1-1.3); Absolute Neutrophil 5.6 K/uL (1.8-8.0); Basophils % 0.8 % (0-1.3); Eosinophils % 2.7 % (0-4.4); Hematocrit 45.7 % (39.6-49.0); Lymphocytes % 24.7 % (15.3-44.8); MCH 29.6 pg (27.0-35.0); MPV 7.7 fL (7.6-11.3); Monocytes % 10.4 % (3.3-12.3)
[2018-01-29 14:43] LABS: Potassium 4.3 mEq/L (3.6-5.0)
[2018-01-29 14:46] LABS: Magnesium 1.9 mg/dL (1.8-2.5)
--- NOTE | 2018-01-29 15:36 | ER ---
Nurse's Notes [facility] Name: Lucille King Age: 57 yrs Sex: Male : 1960 Arrival Date: 01/29/2018 Time: 12:27 Bed 15 Private MD: Out, [facility] Diagnosis: Acute pain, not elsewhere classified Presentation: 01/29 12:41 Presenting complaint: Patient states: Body aches and nausea for 2 days. Patient also aj reports he is out of his BP medications and is in the process of switching PCP. Transition of care: patient was not received from another setting of care. Onset of symptoms was January 27, 2018. Risk Assessment: Do you want to hurt yourself or someone else? Patient reports no desire to harm self or others. Care prior to arrival: None. 12:41 Method Of Arrival: Ambulatory 12:41 Acuity: DANISHA 4 14:00 Initial Sepsis Screen: Does the patient meet any 2 criteria? No. Patient's initial sg sepsis screen is negative. Does the patient have a suspected source of infection? No. Patient's initial sepsis screen is negative. Triage Assessment: 12:42 Headache History: The patient has had previous headaches and this one is similar to previous episodes. General: Appears in no apparent distress. comfortable, Behavior is calm, cooperative, appropriate for age. Pain: Complains of pain in face and scalp Pain Pain began 2-3 days ago. Also complains of nausea. Neuro: Level of Consciousness is awake, alert, obeys commands, Oriented to person, place, time, situation, Appropriate for age. Respiratory: Airway is patent Respiratory effort is even, unlabored, Respiratory pattern is regular, symmetrical. Derm: Skin is intact, is healthy with good turgor, Skin is pink, warm \T\ dry. normal. Historical: - Allergies: 12:42 Bactrim; aj 12:42 Cipro; aj - Home Meds: 12:42 Albuterol Inhl [Active]; citalopram 40 mg tab 1 tab once daily [Active]; Flovent Inhl aj [Active]; Omeprazole Oral [Active]; Respiradone [Active]; simvastatin 20 mg Oral tab 1 tab once daily [Active]; Xanax 0.5 mg Oral tab 1 tab 3 times per day [Active]; Zebeta 10 mg Oral tab 1 tab once daily [Active]; thorazine 200 mg daily [Active]; - PMHx: 12:42 Anxiety; Asthma; Depression; Hyperlipidemia; Hypertension; aj - Immunization history:: Adult Immunizations up to date. - Social history:: Smoking status: Patient/guardian denies using tobacco. - Ebola Screening: : Patient negative for fever greater than or equal to 101.5 degrees Fahrenheit, and additional compatible Ebola Virus Disease symptoms Patient denies exposure to infectious person Patient denies travel to an Ebola-affected area in the 21 days before illness onset No symptoms or risks identified at this time. Screenin:00 Abuse screen: Denies threats or abuse. Denies injuries from another. Nutritional sg screening: No deficits noted. Tuberculosis screening: No symptoms or risk factors identified. Never had TB. Fall Risk None identified. Assessment: 14:00 General: Appears in no apparent distress. comfortable, well groomed, well developed, sg well nourished, Behavior is calm, cooperative, appropriate for age. Pain: Complains of pain in head and entire body. Neuro: Level of Consciousness is awake, alert, obeys commands, Oriented to person, place, time, situation, Foam Caster are equal bilaterally Moves all extremities. Full function Speech is normal, Facial symmetry appears normal. Cardiovascular: Heart tones S1 S2 present Capillary refill is brisk in bilateral Patient's skin is warm and dry. Respiratory: Airway is patent Respiratory effort is even, unlabored. GI: Abdomen is round non-distended, Bowel sounds present X 4 quads. : No signs and/or symptoms were reported regarding the genitourinary system. EENT: No deficits noted. Derm: Skin is pink, warm \T\ dry. Musculoskeletal: No deficits noted. Vital Signs: 12:42 BP 151 / 88; Pulse 70; Resp 16; Temp 97.5; Pulse Ox 99% on R/A; Weight 100.7 kg; Height aj 5 ft. 7 in. (170.18 cm); 14:30 BP 136 / 80; Pulse 72; Resp 16; Temp 97.5; Pulse Ox 100% on R/A; Pain 0/10; sg 12:42 Body Mass Index 34.77 (100.70 kg, 170.18 cm) ED Course: 12:27 Patient arrived in ED. sb2 12:28 Out, [facility] is Private Physician. sb2 12:41 Triage completed. aj 12:42 Arm band placed on right wrist. Patient placed in waiting room, Patient notified of wait time. 13:45 Pillo Prajapati PA is PHCP. jrSaundra 13:45 Daniel Joshi MD is Attending Physician. jr8 14:00 Patient has correct armband on for positive identification. Bed in low position. Call sg light in reach. Side rails up X2. Pulse ox on. NIBP on. Head of bed elevated. 14:10 Pilo Kim, RN is Primary Nurse. sg 14:34 Initial lab(s) drawn, by mi, sent to lab. Inserted saline lock: 20 gauge in right sg antecubital area, using aseptic technique. Blood collected. 15:40 No provider procedures requiring assistance completed. IV discontinued, intact, sg bleeding controlled, No redness/swelling at site. Pressure dressing applied. Administered Medications: No medications were administered Outcome: 15:36 Discharge ordered by . jr8 15:40 Discharged to home ambulatory. sg 15:40 Condition: good 15:40 Discharge instructions given to patient, Instructed on discharge instructions, follow up and referral plans. medication usage, safety practices, Demonstrated understanding of instructions, follow-up care, medications, Prescriptions given X 3. 15:51 Patient left the ED. sg Signatures: Pilo Kim RN Deyanira Albarado RN RN aj Roszak, Josh, PA PA jrOlga Torres sb2
--- NOTE | 2018-01-29 15:36 | EDPHYS ---
Physician Documentation [facility] Name: Lucille King Age: 57 yrs Sex: Male : 1960 Arrival Date: 01/29/2018 Time: 12:27 Bed 15 Private MD: Out, [facility] ED Physician Daniel Joshi HPI: 01/29 14:18 This 57 yrs old Black Male presents to ER via Ambulatory with complaints of Headache, jr8 BODY ACHE. 14:18 Patient stated that he has had headache and muscle and joint pain for the past few jr8 days. Denies fevers. Had recently cleaned garage which he had not done in the past. Stated that he has not had any recent change or addition in medication. Denies any other symptoms . Severity of symptoms: At their worst the symptoms were mild in the emergency department the symptoms are unchanged. The patient has not experienced similar symptoms in the past. The patient has not recently seen a physician. Historical: - Allergies: 12:42 Bactrim; aj 12:42 Cipro; aj - Home Meds: 12:42 Albuterol Inhl [Active]; citalopram 40 mg tab 1 tab once daily [Active]; Flovent Inhl aj [Active]; Omeprazole Oral [Active]; Respiradone [Active]; simvastatin 20 mg Oral tab 1 tab once daily [Active]; Xanax 0.5 mg Oral tab 1 tab 3 times per day [Active]; Zebeta 10 mg Oral tab 1 tab once daily [Active]; thorazine 200 mg daily [Active]; - PMHx: 12:42 Anxiety; Asthma; Depression; Hyperlipidemia; Hypertension; aj - Immunization history:: Adult Immunizations up to date. - Social history:: Smoking status: Patient/guardian denies using tobacco. - Ebola Screening: : Patient negative for fever greater than or equal to 101.5 degrees Fahrenheit, and additional compatible Ebola Virus Disease symptoms Patient denies exposure to infectious person Patient denies travel to an Ebola-affected area in the 21 days before illness onset No symptoms or risks identified at this time. ROS: 14:18 Eyes: Negative for injury, pain, redness, and discharge, ENT: Negative for injury, jr8 pain, and discharge, Neck: Negative for injury, pain, and swelling, Cardiovascular: Negative for chest pain, palpitations, and edema, Respiratory: Negative for shortness of breath, cough, wheezing, and pleuritic chest pain, Abdomen/GI: Negative for abdominal pain, nausea, vomiting, diarrhea, and constipation, Skin: Negative for injury, rash, and discoloration. 14:18 Back: Positive for pain at rest, of the low back area. 14:18 MS/extremity: Positive for pain, Negative for erythema, paresthesias, rash, swelling, tenderness, tingling, warmth. 14:18 Neuro: Positive for headache, Negative for altered mental status, dizziness, gait disturbance, hearing loss, loss of consciousness, numbness, seizure activity, speech changes, syncope, near syncope, tingling, tinnitus, tremor, visual changes, weakness. Exam: 14:18 Head/Face: Normocephalic, atraumatic. Eyes: Pupils equal round and reactive to light, jr8 extra-ocular motions intact. Lids and lashes normal. Conjunctiva and sclera are non-icteric and not injected. Cornea within normal limits. Periorbital areas with no swelling, redness, or edema. ENT: Nares patent. No nasal discharge, no septal abnormalities noted. Tympanic membranes are normal and external auditory canals are clear. Oropharynx with no redness, swelling, or masses, exudates, or evidence of obstruction, uvula midline. Mucous membranes moist. Neck: Trachea midline, no thyromegaly or masses palpated, and no cervical lymphadenopathy. Supple, full range of motion without nuchal rigidity, or vertebral point tenderness. No Meningismus. Cardiovascular: Regular rate and rhythm with a normal S1 and S2. No gallops, murmurs, or rubs. Normal PMI, no JVD. No pulse deficits. Respiratory: Lungs have equal breath sounds bilaterally, clear to auscultation and percussion. No rales, rhonchi or wheezes noted. No increased work of breathing, no retractions or nasal flaring. Abdomen/GI: Soft, non-tender, with normal bowel sounds. No distension or tympany. No guarding or rebound. No evidence of tenderness throughout. Back: No spinal tenderness. No costovertebral tenderness. Full range of motion. Skin: Warm, dry with normal turgor. Normal color with no rashes, no lesions, and no evidence of cellulitis. MS/ Extremity: Pulses equal, no cyanosis. Neurovascular intact. Full, normal range of motion. Neuro: Awake and alert, GCS 15, oriented to person, place, time, and situation. Cranial nerves II-XII grossly intact. Motor strength 5/5 in all extremities. Sensory grossly intact. Cerebellar exam normal. Normal gait. Vital Signs: 12:42 BP 151 / 88; Pulse 70; Resp 16; Temp 97.5; Pulse Ox 99% on R/A; Weight 100.7 kg; Height aj 5 ft. 7 in. (170.18 cm); 14:30 BP 136 / 80; Pulse 72; Resp 16; Temp 97.5; Pulse Ox 100% on R/A; Pain 0/10; sg 12:42 Body Mass Index 34.77 (100.70 kg, 170.18 cm) aj MDM: 13:45 Patient medically screened. jr8 15:35 Differential Diagnosis Medication reaction, viral illness, mono, bacterial infection, jr8 Rheumatic condition, gout. Data reviewed: vital signs, nurses notes, lab test result(s), and as a result, I will discharge patient. Data interpreted: Pulse oximetry: on room air is 99 %. Interpretation: normal. Counseling: I had a detailed discussion with the patient and/or guardian regarding: the historical points, exam findings, and any diagnostic results supporting the discharge/admit diagnosis, lab results, the need for outpatient follow up, a family practitioner, to return to the emergency department if symptoms worsen or persist or if there are any questions or concerns that arise at home. 01/29 14:09 Order name: CBC with Diff; Complete Time: 15:34 01/29 14:09 Order name: Basic Metabolic Panel; Complete Time: 14:58 01/29 14:09 Order name: [place] Screen Profile; Complete Time: 15:34 01/29 14:09 Order name: Westergren Sedrate; Complete Time: 15:34 01/29 14:09 Order name: CPK; Complete Time: 14:58 01/29 14:09 Order name: Magnesium; Complete Time: 14:58 01/29 14:09 Order name: IV; Complete Time: 14:34 Administered Medications: No medications were administered Disposition: 16:21 Co-signature as Attending Physician, Daniel Joshi MD. rn Disposition: 01/29/18 15:36 Discharged to Home. Impression: Acute pain, not elsewhere classified. - Condition is Stable. - Discharge Instructions: Pain Without a Known Cause. - Medication Reconciliation Form, Thank You Letter, Antibiotic Education, Prescription Opioid Use form. - Follow up: Private Physician; When: 5 - 6 days; Reason: Recheck today's complaints, Continuance of care, Re-evaluation by your physician. - Problem is new. - Symptoms are unchanged. Signatures: Dispatcher [employer] EDPilo Croft RN RN sg Myers, Amanda, RN RN aj Nieto, Roman, MD MD rn Roszak, Josh, PA PA jr8 Corrections: (The following items were deleted from the chart) 15:51 15:36 01/29/2018 15:36 Discharged to Home. Impression: Acute pain, not elsewhere sg classified. Condition is Stable. Forms are Medication Reconciliation Form, Thank You Letter, Antibiotic Education, Prescription Opioid Use. Follow up: Private Physician; When: 5 - 6 days; Reason: Recheck today's complaints, Continuance of care, Re-evaluation by your physician. Problem is new. Symptoms are unchanged. jr8
== END 2018-01-29 15:51 | disposition home or self-care (01) ==
LOC: ER 12:26
DX: R52 Pain, unspecified (principal); I10 Essential (primary) hypertension; E78.5 Hyperlipidemia, unspecified; F41.9 Anxiety disorder, unspecified; F32.9 Major depressive disorder, single episode, unspecified; Z88.1 Allergy status to other antibiotic agents
CPT/HCPCS: 36415; 80048; 82550; 83735; 85025; 85652; 86308; 99284

== ENCOUNTER 2018-07-10 23:58 | Observation (INO) | payer OTHER ==
--- OUTSIDE RECORDS SUMMARY | 2018-07-11 | XMS REPORT | Clinical Summary ---
:1960 Author Organization [facility] Address [address] [place] [address] Care Team Providers Name Role Phone Bebo Angel MD Primary Care Provider Allergies Active Allergy Reactions Severity Noted Date Comments Amoxicillin-Pot Clavulanate 07/30/2016 Ciprofloxacin 07/30/2016 Medications Medication Sig Dispensed Refills Start Date End Date Status citalopram (CeleXA) 40 Take 40 mg by 0 Active MG tablet mouth daily. ALPRAZolam (XANAX) 0.5 Take 0.5 mg by 0 Active MG tablet mouth as needed for anxiety. chlorproMAZINE Take 400 mg by 0 Active (THORAZINE) 100 MG mouth nightly. tablet risperiDONE (RisperDAL) Take 3 mg by 0 Active 3 MG tablet mouth daily. omeprazole (PriLOSEC) 40 Take 40 mg by 0 Active MG capsule mouth daily. traZODone 150 mg tablet Take 150 mg by 0 Active extended release 24 hr mouth daily. bisoprolol (ZEBETA) 10 Take 1 tablet 90 tablet 1 02/27/2017 Active MG tablet (10 mg total) by mouth daily. Active Problems Problem Noted Date Trigger finger of right thumb 03/19/2017 Tendinitis of finger 03/19/2017 Anxiety disorder 01/09/2017 Seasonal allergic rhinitis due to pollen 07/30/2016 Essential hypertension 08/26/2005 Schizophrenia Family History Medical History Relation Name Comments Diabetes Brother Heart disease Brother Diabetes Father Diabetes Mother Hypertension Mother Relation Name Status Comments Brother Father Mother Social History Tobacco Use Types Packs/Day Years Used Date Never Smoker Alcohol Use Drinks/Week oz/Week Comments No Sex Assigned at Date Recorded Not on file Job Start Date Occupation Industry Not on file Not on file Not on file Travel History Travel Start Travel End No recent travel history available. Last Filed Vital Signs Not on file Plan of Treatment Health Maintenance Due Date Last Done Comments MMR VACCINES (1 of 1 - Standard 1959 series) COLON CANCER SCREENING 2008 SHINGRIX VACCINE (1 of 2) 2008 INFLUENZA VACCINE 03/26/2018 ZOSTER VACCINE 2018 HEPATITIS B VACCINES Aged Out No longer eligible based on patient's age to complete this topic IPV VACCINES Aged Out No longer eligible based on patient's age to complete this topic MENINGOCOCCAL VACCINE Aged Out No longer eligible based on patient's age to complete this topic VARICELLA VACCINES Aged Out No longer eligible based on patient's age to complete this topic Results Not on fileafter 07/09/2017 Insurance Payer Benefit Plan / Group Subscriber ID Type Phone Address MEDICARE MEDICARE PART A AND B xxxxxxxxxx Medicare [place], [place] Advance Directives Patient has advance care planning documents on file. For more information, please contact:Preston Childs[address] [place] [address]
[2018-07-11 01:03] LABS: Absolute Lymphocytes (CBC) 2.4 K/uL (0.7-4.9); Absolute Monocytes 0.8 K/uL (0.1-1.3); Absolute Neutrophil 6.5 K/uL (1.8-8.0); Basophils % 0.5 % (0-1.3); Eosinophils % 2.2 % (0-4.4); Hematocrit 44.8 % (39.6-49.0); Lymphocytes % 23.9 % (15.3-44.8); MCH 29.7 pg (27.0-35.0); MPV 7.7 fL (7.6-11.3); Monocytes % 7.6 % (3.3-12.3); RBC Red Blood Cell Count 5.09 M/uL (4.33-5.43)
[2018-07-11 01:04] LABS: Protime INR 1.04
[2018-07-11] MEDS ORDERED: ASPIRIN 81 MG CHEWABLE TABLET ONE (01:12)
--- NOTE | 2018-07-11 01:16 | EDPHYS ---
Physician Documentation [facility] Name: Lucille King Age: 58 yrs Sex: Male : 1960 Arrival Date: 07/10/2018 Time: 23:59 Bed 19 Private MD: KUNAL REGAN ED Physician Joshua Merrill HPI: 07/11 01:12 This 58 yrs old Black Male presents to ER via Ambulatory with complaints of Chest geri Pressure. 01:12 The patient or guardian reports chest pain that is located primarily in the substernal geri area, anterior chest wall. Onset: 7 day(s) ago. The pain does not radiate. Associated signs and symptoms: The patient has no apparent associated signs or symptoms. The chest pain is described as a pressure, squeezing. Modifying factors: The symptoms are alleviated by nothing. the symptoms are aggravated by nothing. Severity of pain: At its worst the pain was mild in the emergency department the pain is unchanged. The patient has not experienced similar symptoms in the past. Historical: - Allergies: 00:13 Bactrim; aa1 00:13 Cipro; aa1 00:13 Augmentin; aa1 - Home Meds: 00:13 Albuterol Inhl [Active]; Respiradone [Active]; Zebeta 10 mg Oral tab 1 tab once daily aa1 [Active]; Guaifenesin Oral [Active]; Protonix Oral [Active]; Symbicort inhalation inhalation [Active]; Flomax Oral [Active]; - PMHx: 00:13 Anxiety; Asthma; Depression; Hyperlipidemia; Hypertension; Bipolar disorder; renal aa1 insufficiency; born with 1 kidney; - PSHx: 00:13 None; aa1 - Immunization history:: Flu vaccine is not up to date. - Social history:: Smoking status: Patient/guardian denies using tobacco. - Ebola Screening: : Patient denies exposure to infectious person Patient denies travel to an Ebola-affected area in the 21 days before illness onset. - Family history:: not pertinent. ROS: 01:12 Constitutional: Negative for fever, chills, and weight loss, Eyes: Negative for injury, geri pain, redness, and discharge, ENT: Negative for injury, pain, and discharge, Neck: Negative for injury, pain, and swelling, Respiratory: Negative for shortness of breath, cough, wheezing, and pleuritic chest pain, Abdomen/GI: Negative for abdominal pain, nausea, vomiting, diarrhea, and constipation, Back: Negative for injury and pain, : Negative for injury, bleeding, discharge, and swelling, MS/Extremity: Negative for injury and deformity, Skin: Negative for injury, rash, and discoloration, Neuro: Negative for headache, weakness, numbness, tingling, and seizure, Psych: Negative for depression, anxiety, suicide ideation, homicidal ideation, and hallucinations, Allergy/Immunology: Negative for hives, rash, and allergies, Endocrine: Negative for neck swelling, polydipsia, polyuria, polyphagia, and marked weight changes, Hematologic/Lymphatic: Negative for swollen nodes, abnormal bleeding, and unusual bruising. 01:12 Cardiovascular: Positive for chest pain. Exam: :12 Constitutional: This is a well developed, well nourished patient who is awake, alert, geri and in no acute distress. Head/Face: Normocephalic, atraumatic. Eyes: Pupils equal round and reactive to light, extra-ocular motions intact. Lids and lashes normal. Conjunctiva and sclera are non-icteric and not injected. Cornea within normal limits. Periorbital areas with no swelling, redness, or edema. ENT: Nares patent. No nasal discharge, no septal abnormalities noted. Tympanic membranes are normal and external auditory canals are clear. Oropharynx with no redness, swelling, or masses, exudates, or evidence of obstruction, uvula midline. Mucous membranes moist. Neck: Trachea midline, no thyromegaly or masses palpated, and no cervical lymphadenopathy. Supple, full range of motion without nuchal rigidity, or vertebral point tenderness. No Meningismus. Chest/axilla: Normal chest wall appearance and motion. Nontender with no deformity. No lesions are appreciated. Cardiovascular: Regular rate and rhythm with a normal S1 and S2. No gallops, murmurs, or rubs. Normal PMI, no JVD. No pulse deficits. Respiratory: Lungs have equal breath sounds bilaterally, clear to auscultation and percussion. No rales, rhonchi or wheezes noted. No increased work of breathing, no retractions or nasal flaring. Abdomen/GI: Soft, non-tender, with normal bowel sounds. No distension or tympany. No guarding or rebound. No evidence of tenderness throughout. Back: No spinal tenderness. No costovertebral tenderness. Full range of motion. Male : Normal genitalia with no discharge or lesions. Skin: Warm, dry with normal turgor. Normal color with no rashes, no lesions, and no evidence of cellulitis. MS/ Extremity: Pulses equal, no cyanosis. Neurovascular intact. Full, normal range of motion. Neuro: Awake and alert, GCS 15, oriented to person, place, time, and situation. Cranial nerves II-XII grossly intact. Motor strength 5/5 in all extremities. Sensory grossly intact. Cerebellar exam normal. Normal gait. Psych: Awake, alert, with orientation to person, place and time. Behavior, mood, and affect are within normal limits. Vital Signs: 00:13 BP 158 / 92; Pulse 52; Resp 18; Temp 97.8; Pulse Ox 100% on R/A; Weight 91.63 kg; aa1 Height 5 ft. 7 in. (170.18 cm); Pain 8/10; 00:47 BP 140 / 84; Pulse 47; Resp 16; Pulse Ox 98% on R/A; ak1 01:57 BP 136 / 69; Pulse 98; Resp 16; Temp 97.9(O); Pulse Ox 97% on R/A; Pain 3/10; ak1 00:13 Body Mass Index 31.64 (91.63 kg, 170.18 cm) [facility] MDM: 00:50 Patient medically screened. [facility] 01:14 Data reviewed: vital signs, nurses notes, lab test result(s), EKG, radiologic studies, [facility] plain films. 07/11 00:42 Order name: Basic Metabolic Panel; Complete Time: 02: [facility] 07/11 00:42 Order name: CBC with Diff; Complete Time: 02:15 [facility] 07/11 00:42 Order name: LFT's; Complete Time: 02: [facility] 07/11 00:42 Order name: Magnesium; Complete Time: 02: [facility] 07/11 00:42 Order name: NT PRO-BNP; Complete Time: 02: [facility] 07/11 00:42 Order name: PT-INR; Complete Time: 02:15 [facility] 07/11 00:42 Order name: Troponin (emerg Dept Use Only); Complete Time: 02: [facility] 07/11 00:42 Order name: XRAY Chest (1 view) [facility] 07/11 00:54 Order name: Urine Culture [facility] 07/11 01:02 Order name: Lipase; Complete Time: 02:15 EDMS 07/11 01:21 Order name: Echo with Doppler [facility] 07/11 01:34 Order name: Urine Dipstick--Ancillary (enter results); Complete Time: 02:15 ms 07/11 00:42 Order name: EKG; Complete Time: 00:43 [facility] 07/11 00:42 Order name: Cardiac monitoring; Complete Time: 00:46 [facility] 07/11 00:42 Order name: EKG - Nurse/Tech; Complete Time: 00:46 [facility] 07/11 00:42 Order name: IV Saline Lock; Complete Time: 00:46 [facility] 07/11 00:42 Order name: Labs collected and sent; Complete Time: 00:46 [facility] 07/11 00:42 Order name: O2 Per Protocol; Complete Time: 00:46 [facility] 07/11 00:42 Order name: O2 Sat Monitoring; Complete Time: 00:46 [facility] 07/11 00:54 Order name: Urine Dipstick-Ancillary (obtain specimen); Complete Time: 01:21 [facility] 07/11 01:21 Order name: CONS Physician Consult EDNJ Administered Medications: 01:07 Drug: Aspirin Chewable Tablet 324 mg Route: PO; ak1 02:02 Follow up: Response: No adverse reaction ak1 01:34 Drug: Zofran 4 mg Route: IVP; Site: right antecubital; ak1 02:01 Follow up: Response: No adverse reaction ak1 01:34 Drug: Pepcid 20 mg Route: IVP; Site: right antecubital; ak1 02:00 Follow up: Response: No adverse reaction ak1 01:35 Drug: Lovenox 1 mg/kg Route: Sub-Q; Site: right lower abdomen; ak1 02:02 Follow up: Response: No adverse reaction ak1 01:35 Drug: morphine 2 mg Route: IVP; Site: right antecubital; ak1 02:01 Follow up: Response: No adverse reaction; Pain is decreased ak1 02:27 Drug: morphine 2 mg Route: IVP; Site: right antecubital; ak1 02:27 Follow up: Response: Pain is decreased ak1 02:27 Drug: Rocephin - (cefTRIAXone) 1 grams Route: IVPB; Infused Over: 30 mins; Site: right ak1 antecubital; 02:27 Follow up: IV Status: Completed infusion ak1 Disposition: 07/11/18 01:16 Hospitalization ordered by Mario Ambriz for Observation. Preliminary diagnosis are Other chest pain, Essential (primary) hypertension, Urinary tract infection, site not specified. - Bed requested for Telemetry/MedSurg (observation). - Status is Observation. ak1 - Condition is Stable. - Problem is new. - Symptoms have improved. UTI on Admission? Yes Signatures: Dispatcher [employer] EDMS Dory Yanez RN RN Arielle North RN RN aa1 Joshua Merrill MD MD cha Krenek, Amber RN RN ak1 Corrections: (The following items were deleted from the chart) 01:02 00:54 LIPASE+C.LAB.BRZ ordered. EDNJ EDNJ 02:13 01:16 Hospitalization Ordered by Mario Ambriz MD for Observation. Preliminary diagnosis is Other chest pain. Bed requested for Telemetry/MedSurg (observation). Status is Observation. Condition is Stable. Problem is new. Symptoms have improved. UTI on Admission? No. geri 02:17 02:13 07/11/2018 01:16 Hospitalization Ordered by Mario Amrbiz MD for Observation. geri Preliminary diagnosis is Other chest pain. Bed requested for Telemetry/MedSurg (observation). Status is Observation. Condition is Stable. Problem is new. Symptoms have improved. UTI on Admission? No. kl 02:40 02:17 07/11/2018 01:16 Hospitalization Ordered by Mario Ambriz MD for Observation. ak1 Preliminary diagnosis is Other chest pain; Essential (primary) hypertension; Urinary tract infection, site not specified. Bed requested for Telemetry/MedSurg (observation). Status is Observation. Condition is Stable. Problem is new. Symptoms have improved. UTI on Admission? Yes. geri
--- NOTE | 2018-07-11 01:16 | ER ---
Nurse's Notes [facility] Name: Lucille King Age: 58 yrs Sex: Male : 1960 Arrival Date: 07/10/2018 Time: 23:59 Bed 19 Private MD: KUNAL REGAN Diagnosis: Other chest pain;Essential (primary) hypertension;Urinary tract infection, site not specified Presentation: 07/11 00:09 Presenting complaint: Patient states: chest pressure and SOB x 1 week. States, "I aa1 thought it would go away but it just hasn't gotten any better." NAD or SOB noted at this time. Transition of care: patient was not received from another setting of care. Onset of symptoms was July 03, 2018. Risk Assessment: Do you want to hurt yourself or someone else? Patient reports no desire to harm self or others. Initial Sepsis Screen: Does the patient meet any 2 criteria? No. Patient's initial sepsis screen is negative. Does the patient have a suspected source of infection? No. Patient's initial sepsis screen is negative. Care prior to arrival: None. 00:09 Method Of Arrival: Ambulatory aa1 00:09 Acuity: DANISHA 3 aa1 Triage Assessment: 00:13 General: Appears in no apparent distress. comfortable, Behavior is calm, cooperative, aa1 appropriate for age. Historical: - Allergies: 00:13 Bactrim; aa1 00:13 Cipro; aa1 00:13 Augmentin; aa1 - Home Meds: 00:13 Albuterol Inhl [Active]; Respiradone [Active]; Zebeta 10 mg Oral tab 1 tab once daily aa1 [Active]; Guaifenesin Oral [Active]; Protonix Oral [Active]; Symbicort inhalation inhalation [Active]; Flomax Oral [Active]; - PMHx: 00:13 Anxiety; Asthma; Depression; Hyperlipidemia; Hypertension; Bipolar disorder; renal aa1 insufficiency; born with 1 kidney; - PSHx: 00:13 None; aa1 - Immunization history:: Flu vaccine is not up to date. - Social history:: Smoking status: Patient/guardian denies using tobacco. - Ebola Screening: : Patient denies exposure to infectious person Patient denies travel to an Ebola-affected area in the 21 days before illness onset. - Family history:: not pertinent. Screenin:33 Abuse screen: Denies threats or abuse. Denies injuries from another. Nutritional ak1 screening: No deficits noted. Tuberculosis screening: No symptoms or risk factors identified. Fall Risk None identified. Assessment: 00:30 General: Appears in no apparent distress. Behavior is calm, cooperative. Pain: ak1 Complains of pain in chest Pain does not radiate. Pain began 1 week SOCK DRIER. Neuro: No deficits noted. Cardiovascular: Reports chest pain, Denies nausea, vomiting. Respiratory: No deficits noted. GI: No signs and/or symptoms were reported involving the gastrointestinal system. : No signs and/or symptoms were reported regarding the genitourinary system. EENT: No signs and/or symptoms were reported regarding the EENT system. Derm: No signs and/or symptoms reported regarding the dermatologic system. Musculoskeletal: No signs and/or symptoms reported regarding the musculoskeletal system. Vital Signs: 00:13 BP 158 / 92; Pulse 52; Resp 18; Temp 97.8; Pulse Ox 100% on R/A; Weight 91.63 kg; aa1 Height 5 ft. 7 in. (170.18 cm); Pain 8/10; 00:47 BP 140 / 84; Pulse 47; Resp 16; Pulse Ox 98% on R/A; ak1 01:57 BP 136 / 69; Pulse 98; Resp 16; Temp 97.9(O); Pulse Ox 97% on R/A; Pain 3/10; ak1 00:13 Body Mass Index 31.64 (91.63 kg, 170.18 cm) aa1 ED Course: 07/10 23:59 Patient arrived in ED. am2 07/11 00:00 KUNAL REGAN is Private Physician. am2 00:10 Triage completed. aa1 00:10 Demetra Albert, RN is Primary Nurse. lp1 00:13 Arm band placed on right wrist. Patient placed in an exam room, on a stretcher. aa1 00:33 Patient has correct armband on for positive identification. Placed in gown. Bed in low ak1 position. Call light in reach. Side rails up X 1. quality assurance monitor body on. Pulse ox on. NIBP on. 00:33 Patient maintains SpO2 saturation greater than 95% on room air. ak1 00:47 Initial lab(s) drawn, by me, sent to lab. EKG done, by ED staff. Inserted saline lock: ak1 20 gauge in right antecubital area, using aseptic technique. Blood collected. 00:50 Joshua Merrill MD is Attending Physician. geri 01:06 X-ray completed. Portable x-ray completed in exam room. Patient tolerated procedure kw well. 01:07 XRAY Chest (1 view) In Process Unspecified. EDMS 01:15 Mario Ambriz MD is Hospitalizing Provider. geri 02:28 No provider procedures requiring assistance completed. Patient admitted, IV remains in ak1 place. Administered Medications: 01:07 Drug: Aspirin Chewable Tablet 324 mg Route: PO; ak1 02:02 Follow up: Response: No adverse reaction ak1 01:34 Drug: Zofran 4 mg Route: IVP; Site: right antecubital; ak1 02:01 Follow up: Response: No adverse reaction ak1 01:34 Drug: Pepcid 20 mg Route: IVP; Site: right antecubital; ak1 02:00 Follow up: Response: No adverse reaction ak1 01:35 Drug: Lovenox 1 mg/kg Route: Sub-Q; Site: right lower abdomen; ak1 02:02 Follow up: Response: No adverse reaction ak1 01:35 Drug: morphine 2 mg Route: IVP; Site: right antecubital; ak1 02:01 Follow up: Response: No adverse reaction; Pain is decreased ak1 02:27 Drug: morphine 2 mg Route: IVP; Site: right antecubital; ak1 02:27 Follow up: Response: Pain is decreased ak1 02:27 Drug: Rocephin - (cefTRIAXone) 1 grams Route: IVPB; Infused Over: 30 mins; Site: right ak1 antecubital; 02:27 Follow up: IV Status: Completed infusion ak1 Outcome: 01:16 Decision to Hospitalize by Provider. geri 02:28 Admitted to Tele accompanied by tech, via wheelchair, room 412, with chart, Report ak1 called to Manny 02:28 Condition: good 02:28 Instructed on the need for admit. 02:40 Patient left the ED. ak1 Signatures: Dispatcher [employer] EDMS Arielle Portillo RN RN aa1 Joshua Merrill MD MD cha Whitley, Kimberlee kw Pena, Laura, RN RN lp1 Kaylen Epps, RN RN ak1 Deyanira Ramirez am2
[2018-07-11 01:25] LABS: ALT/SGPT 31 U/L (12-78); AST/SGOT 25 U/L (15-37); Albumin 3.5 g/dL (3.4-5.0); Alkaline Phosphatase 98 U/L (45-117); BUN Blood Urea Nitrogen 12 mg/dL (7-18); Bicarbonate 31 mmol/L (21-32); Bilirubin Direct 0.1 mg/dL (0-0.2); Bilirubin Total 0.4 mg/dL (0.2-1.0); Glucose Level 109 mg/dL (74-106); Lipase 98 U/L (73-393); Magnesium 2.1 mg/dL (1.8-2.4); NT PRO-BNP 10 pg/mL (<125); Potassium 4.1 mmol/L (3.5-5.1); Protein, Total 7.4 g/dL (6.4-8.2); Sodium Level 140 mmol/L (136-145); Troponin (Emerg Dept Use Only) < 0.02 ng/mL (0.0-0.045)
[2018-07-11] MEDS ORDERED: MORPHINE 4 MG/ML SYR ONE (01:35)
[2018-07-11] MEDS ORDERED: ONDANSETRON 4 MG/2 ML VIAL ONE (01:35)
[2018-07-11] MEDS ORDERED: ENOXAPARIN 100 MG/ML SYR SQ ONE (01:36)
[2018-07-11] MEDS ORDERED: FAMOTIDINE 20 MG/2 ML VIAL IV ONE (01:36)
[2018-07-11 01:57] LABS: Urine Blood NEGATIVE (NEG); Urine Glucose NEGATIVE (NEG); Urine Protein NEGATIVE (NEG)
[2018-07-11] MEDS ORDERED: CEFTRIAXONE/SWI 1gm 1 GM/10 ML SYR ONE (02:28)
[2018-07-11 02:56] VITALS: BMI 33.7
[2018-07-11] MEDS ORDERED: ACETAMINOPHEN 500 MG TAB PO PRN (03:06)
--- NOTE | 2018-07-11 03:17 | P.HP ---
Certification for Inpatient Patient admitted to: Observation With expected LOS: <2 Midnights Practitioner: I am a practitioner with admitting privileges, knowledge of patient current condition, hospital course, and medical plan of care. Services: Services provided to patient in accordance with Admission requirements found in Title 42 Section 412.3 of the Code of Federal Regulations Patient History Date of Service: 07/11/18 Reason for admission: Chest pain History of Present Illness: Mr King is a 58-year-old male with history of hypertension, dyslipidemia, anxiety and depression, who came to ER complaining of chest pain which started about 2 days ago. The chest pain is, ago lasting for seconds to minutes, retrosternal pressure-like, associated with shortness of breath and nausea. He denied diaphoresis, dizziness or vomiting. No history of cough, fever or chills. ER lab work remarkable for normal WBC count, troponin I is negative. EKG shows no ST-T abnormality. Allergies ciprofloxacin [From Cipro] Allergy (Unverified 07/02/17 20:44) Unknown sulfamethoxazole [From Bactrim] Allergy (Unverified 07/02/17 20:44) Unknown trimethoprim [From Bactrim] Allergy (Unverified 07/02/17 20:44) Unknown Home medications list reviewed: Yes - Past Medical/Surgical History -: Anxiety -: Depression -: Dyslipidemia -: Hypertension -: Chronic kidney disease Past Surgical History: Reviewed- Non-Contributory - Family History Family History: Reviewed- Non-Contributory - Social History Smoking Status: Never smoker Alcohol use: No CD- Drugs: No Place of Residence: Home Review of Systems 10-point ROS is otherwise unremarkable Physical Examination - Physical Exam General: Alert, In no apparent distress HEENT: Atraumatic, PERRLA, Mucous membr. moist/pink, EOMI, Sclerae nonicteric Neck: Supple, 2+ carotid pulse no bruit, No LAD, Without JVD or thyroid abnormality Respiratory: Clear to auscultation bilaterally, Normal air movement Cardiovascular: Regular rate/rhythm, Normal S1 S2 Gastrointestinal: Normal bowel sounds, No tenderness Musculoskeletal: No tenderness Integumentary: No rashes Neurological: Normal gait, Normal speech, Normal strength at 5/5 x4 extr, Normal tone, Normal affect Lymphatics: No axilla or inguinal lymphadenopathy - Studies Laboratory Data (last 24 hrs) 07/11/18 00:54: Lipase Cancelled 07/11/18 00:45: PT 12.3, INR 1.04 07/11/18 00:45: WBC 9.9, Hgb 15.1, Hct 44.8, Plt Count 239 07/11/18 00:45: Sodium 140, Potassium 4.1, BUN 12, Creatinine 1.20, Glucose 109 H, Magnesium 2.1, Total Bilirubin 0.4, AST 25, ALT 31, Alkaline Phosphatase 98, Lipase 98 Assessment and Plan - Problems (Diagnosis) (1) Chest pain Current Visit: Yes Status: Acute Qualifiers: Chest pain type: precordial pain Qualified Code(s): R07.2 - Precordial pain (2) Hypertension Current Visit: Yes Status: Acute Qualifiers: Hypertension type: essential hypertension Qualified Code(s): I10 - Essential (primary) hypertension (3) Chronic kidney disease Current Visit: Yes Status: Acute Qualifiers: Chronic kidney disease stage: stage 1 Qualified Code(s): N18.1 - Chronic kidney disease, stage 1 (4) Dyslipidemia Current Visit: Yes Status: Acute - Plan The patient will be admitted to the hospital due to chest pain, initial troponin I is negative, EKG shows no ST-T abnormalities. Will order serial cardiac enzymes and EKG, consult Cardiology for evaluation recommendation. - Advance Directives Does patient have a Living Will: No Does patient have a Durable POA for Healthcare: No - Code Status/Comfort Care Code Status Assessed: Yes Code Status: Full Code
[2018-07-11 04:24] LABS: BUN Blood Urea Nitrogen 12 mg/dL (7-18); Bicarbonate 32 mmol/L (21-32); Glucose Level 101 mg/dL (74-106); HDL Cholesterol 51 mg/dL (40-60); LDL Cholesterol, Calculated 110 (<130); Potassium 4.6 mmol/L (3.5-5.1); Sodium Level 141 mmol/L (136-145); Troponin I < 0.02 ng/mL (0.0-0.045)
--- NOTE | 2018-07-11 07:05 | EKG ---
Test Date: 2018-07-11 Test Time: 00:08:07 Tucking Machine Operator: TANG MEASUREMENT RESULTS: Intervals: Rate: 49 CO: 184 QRSD: 100 QT: 466 QTc: 420 [place]: P: 68 CO: 184 QRS: -18 T: -8 INTERPRETIVE STATEMENTS: Marked sinus bradycardia Minimal voltage criteria for LVH, may be normal variant Nonspecific T wave abnormality Abnormal ECG Compared to ECG 07/02/2017 18:41:48 T-wave abnormality now present Electronically Signed On 07-11-18 07:04:14 ZONE MANAGER by Toribio Khan
[2018-07-11] MEDS ORDERED: ALBUTEROL INHALER 60 PUFF/8 GM IH PRN (08:29)
[2018-07-11] MEDS ORDERED: TRAZODONE 150 MG TAB PO PRN (08:29)
[2018-07-11] MEDS ORDERED: ALPRAZOLAM 0.5 MG TABLET PO PRN (08:29)
--- NOTE | 2018-07-11 08:33 | RAD REPORT ---
EXAM DESCRIPTION: RAD - Chest Single View - 07/11/2018 1:07 am CLINICAL HISTORY: CHEST PAIN Chest pain. COMPARISON: Chest Single View dated 12/06/2017; Chest Pa And Lat (2 Views) dated 10/09/2017; Chest Pa And Lat (2 Views) dated 07/20/2017; Chest Single View dated 07/02/2017 FINDINGS: Portable technique limits examination quality. The lungs are grossly clear. The heart is normal in size. No displaced fractures. IMPRESSION: No acute intrathoracic process suspected.
[2018-07-11] MEDS ORDERED: TRAVOPROST 0.004% 2.5ML OPTH EACH EYE SCH (09:00)
[2018-07-11] MEDS ORDERED: FLUTICASONE 50MCG NASAL SPRAY NAS SCH (09:00)
[2018-07-11] MEDS ORDERED: HOME MED 1 EA UNK (Citalopram Hydrobromide [Citalopram Hbr] 40 MG) PO SCH (09:00)
[2018-07-11] MEDS ORDERED: PERPHENAZINE 8 MG PO SCH (09:00)
[2018-07-11] MEDS ORDERED: HOME MED 1 EA UNK (Latanoprost/Pf [Latanoprost 0.005% Eye Drop] 1 GTT) EACH EYE SCH (09:00)
[2018-07-11] MEDS ORDERED: HOME MED 1 EA UNK (Budesonide/Formoterol Fumarate [Symbicort 160-4.5 Mcg Inhaler] 1 PUFF) IH SCH (09:00)
[2018-07-11] MEDS ORDERED: ASPIRIN EC 81 MG TAB PO SCH (09:00)
[2018-07-11] MEDS ORDERED: AZELASTINE HCL EACH EYE SCH (09:00)
[2018-07-11] MEDS ORDERED: ENOXAPARIN 40 MG/0.4 ML SQ SCH (09:00)
[2018-07-11] MEDS ORDERED: PANTOPRAZOLE 40MG TABLET PO SCH (09:00)
--- NOTE | 2018-07-11 12:01 | CON ---
Chief Complaint: Chest pain. History Of Present Illness: Mr. King has been having chest pain off and on for some time for a co uple of days before coming in. He had the chest pain that would linger long enough. It prompted him to come in. Since he has been here, myocardial infarction was ruled out by enzymes and EKGs. He medina s longstanding hypertension and dyslipidemia, both well controlled. He takes simvastatin for his dys lipidemia. He also takes travoprost, tamsulosin, latanoprost, Protonix, alprazolam, Symbicort, azela augie, citalopram, fluticasone, nystatin, perphenazine, risperidone, trazodone, budesonide, and albut tatiana. Since he has been here, his blood pressure has been fine and that is without him receiving any blood pressure medications. He does not use tobacco or alcohol. Allergies: REPORTS DRUG INTOLERANCE TO CIPRO AND SULFAMETHOXAZOLE. Past Medical History: Significant for reactive airways disease. He has chronic kidney disease stage 1. No history of myocardial infarction, stroke, or any vascular disease. Physical Examination: VITAL SIGNS: Five feet and 7 inches, 215 pounds. HEENT: Normal. Lungs: Clear. Cardiac: Normal. Abdomen: Soft. Extremities: Normal. Laboratory Data: His EKG shows voltage for LVH, nonspecific T-wave changes. Impression: This is probably noncardiac chest pain. After the echocardiogram, it does not show any abnormalities. I think he will be stable enough to be discharged. He can do an outpatient stress te st if unable to do a nuclear stress test today, and he is not in a situation where he has to be in the hospital and await for stress test, so we can try to schedule it for outpatient. BORIS Voice ID: [id number] Report ID: [id number]
--- NOTE | 2018-07-11 15:14 | ECHO ---
HEIGHT: 5 ft 7 in WEIGHT: 215 lb 8 oz DATE OF STUDY: 07/11/[address]: Joshau Merrill MD 2-DIMENSIONAL: YES M.MODE: YES DOPPLER: YES COLOR FLOW: YES TDS: PORTABLE: DEFINITY: BUBBLE STUDY: DIAGNOSIS: CHEST PAIN CARDIAC HISTORY: CATHERIZATION: NO SURGERY: NO PROSTHETIC VALVE: NO PACEMAKER: NO MEASUREMENTS (cm) DIASTOLIC (NORMALS) SYSTOLIC (NORMALS) IVSd 1.4 (0.6-1.2) LA Diam 3.3 (1.9-4.0) LVEF 57% LVIDd 3.9 (3.5-5.7) LVIDs 2.7 (2.0-3.5) %FS 29% LVPWd 1.4 (0.6-1.2) Ao Diam 2.8 (2.0-3.7) 2 DIMENSIONAL ASSESSMENT: RIGHT ATRIUM: NORMAL LEFT ATRIUM: NORMAL RIGHT VENTRICLE: NORMAL LEFT VENTRICLE: LEFT VENTRICULAR HYPERTROPHY TRICUSPID VALVE: NORMAL MITRAL VALVE: NORMAL PULMONIC VALVE: NORMAL AORTIC VALVE: NORMAL PERICARDIAL EFFUSION: NONE AORTIC ROOT: NORMAL LEFT VENTRICULAR WALL MOTION: NORMAL DOPPLER/COLOR FLOW: PHYSIOLOGICAL TRICUSPID REGURGITATION. NORMAL RIGHT VENTRICULAR SYSTOLIC PRESSURE. COMMENTS: NORMAL LEFT VENTRICULAR SYSTOLIC PRESSURE. LEFT VENTRICULAR HYPERTROPHY. OTHERWISE NORMAL TWO DIMENSIONAL ECHOCARDIOGRAM WITH DOPPLER. TECHNOLOGIST: BERTIN BOND
[2018-07-11 18:55] VITALS: BP 142/72; TEMP 97.5
[2018-07-11 19:52] VITALS: O2SAT 99
[2018-07-11] MEDS ORDERED: ATORVASTATIN 10 MG TAB PO SCH (21:00)
[2018-07-11] MEDS ORDERED: TAMSULOSIN 0.4 MG SR CAP PO SCH (21:00)
[2018-07-11] MEDS ORDERED: RISPERIDONE 1 MG TABLET PO SCH (21:00)
[2018-07-12] MEDS ORDERED: BISOPROLOL 5 MG TABLET PO SCH (09:00)
[2018-07-12] MEDS ORDERED: CITALOPRAM 10 MG TABLET PO SCH (09:00)
--- NOTE | 2018-07-12 10:00 | DS ---
Date of Discharge: 07/11/2018 Consultants: Dr. Khan with Cardiology. Discharge Diagnoses: 1.Chest pain, acute coronary syndrome ruled out. 2.Essential hypertension. 3.Chronic kidney disease, stage 1. 4.Dyslipidemia. 5.Hypertensive heart disease. 6.Generalized anxiety disorder. 7.Major depressive disorder, in remission. 8.Glaucoma. Hospital Course: The patient is a 58-year-old male comes in with chest pain. The patient does have a past medical history of hypertension, dyslipidemia, anxiety, depression. The patient was worked up for ACS which was ruled out. The patient's chest pain is resolved. The patient does report gastroe sophageal reflux disease and states that he takes Protonix twice a day. His pain may be related to h is gastroesophageal reflux disease. The patient's lipid panel was also within normal limits. Echoca rdiogram was done and Cardiology was consulted. His echocardiogram showed EF of 57%. He does have l eft ventricular hypertrophy. The patient was counseled regarding his blood pressure control. He is on beta-blockers. The patient takes bisoprolol. The patient was then cleared for discharge. If his symptoms resolved, he will need to follow up with Cardiology for a stress test within a couple weeks . Return to ER for worsening condition. Follow with primary care physician in 2-3 days. Diet: Heart healthy. Activity: As tolerated. Medications: As per medication reconciliation list. Physical Examination: General: Awake, alert, oriented x3, not in acute distress. CV: S1 and S2. No murmurs. Respiratory: Moving air well bilaterally. No wheezing. Gastrointestinal: Abdomen is soft, nontender, nondistended. Positive bowel sounds. Extremities: No clubbing, cyanosis, edema. Neuro: Nonfocal. SA/MODL Voice ID: [id number] Report ID: [id number]
== END 2018-07-11 18:55 | disposition home or self-care (01) ==
LOC: ER 23:58 → ERHOLD 07-11 01:17 → 4TH 07-11 02:29
PROVIDERS: ADMIT Internal Medicine; ATTEND Internal Medicine
DX: R07.9 Chest pain, unspecified (principal); F41.8 Other specified anxiety disorders; E78.5 Hyperlipidemia, unspecified; I12.9 Hypertensive chronic kidney disease with stage 1 through stage 4 chronic kidney disease, or unspecified chronic kidney disease; N18.1 Chronic kidney disease, stage 1; H40.9 Unspecified glaucoma; Z88.0 Allergy status to penicillin; Z88.2 Allergy status to sulfonamides
CPT/HCPCS: 36415; 71045; 80048 ×2; 80061; 80076; 81003; 83690; 83735; 83880; 84484 ×3; 85025; 85610; 87086; 87088; 93005; 93306; 96372; 96374; 96375; 99285; G0378 ×2; J0696; J1650 ×2; J2405

== ENCOUNTER 2018-09-02 08:36 | Emergency (ER) | payer OTHER ==
--- OUTSIDE RECORDS SUMMARY | 2018-09-02 09:24 | XMS REPORT ---
:1960 [facility] Address [address] [place] [address] Dr. Lackey. [address] [place] [id number] Care Team Providers Name Role Phone Unavailable Unavailable Unavailable Problems This patient has no known problems. Allergies, Adverse Reactions, Alerts This patient has no known allergies or adverse reactions. Medications This patient has no known medications.
--- OUTSIDE RECORDS SUMMARY | 2018-09-02 09:24 | XMS REPORT | Clinical Summary ---
:1960 Author Organization [facility] Address [address] [place] [address] Care Team Providers Name Role Phone Bebo [...] Last Done Comments COLON CANCER SCREENING 2008 SHINGLES VACCINES (1 of 2) 2008 INFLUENZA VACCINE 03/26/2018 Results Not on fileafter 09/01/2017 Insurance Payer Benefit Plan / Group Subscriber ID Type Phone Address MEDICARE MEDICARE PART A AND B xxxxxxxxxx Medicare [place], [place] Advance Directives Patient has advance care planning documents on file. For more information, please contact:Preston Childs[address] [place] [address]
--- NOTE | 2018-09-02 10:09 | EDPHYS ---
Physician Documentation [facility] Name: Lucille King Age: 58 yrs Sex: Male : 1960 Arrival Date: 09/02/2018 Time: 08:40 Bed 5 Private MD: KUNAL REGAN ED Physician Daniel Joshi HPI: 09/02 08:54 This 58 yrs old Black Male presents to ER via Ambulatory with complaints of Headache, rn Cough. 08:54 The patient or guardian reports cough, described as mild, with no sputum. Onset: The rn symptoms/episode began/occurred 3 day(s) ago. Severity of symptoms: At their worst the symptoms were mild, in the emergency department the symptoms are unchanged. Associated signs and symptoms: Pertinent positives: rhinorrhea, Pertinent negatives: ear ache, fever. The patient has experienced similar episodes in the past. Reports doesn't feel well, + fever 2 days ago, + nasal congestion, sinus pressure, also ran out of inhaler recently, reports hx of asthma. . Historical: - Allergies: 08:45 Augmentin; hj 08:45 Bactrim; hj 08:45 Cipro; hj - Home Meds: 08:45 Albuterol Inhl [Active]; Flomax Oral [Active]; Guaifenesin Oral [Active]; Protonix Oral hj [Active]; Respiradone [Active]; Symbicort inhalation [Active]; Zebeta 10 mg Oral tab 1 tab once daily [Active]; - PMHx: 08:45 Anxiety; Asthma; Bipolar disorder; born with 1 kidney; Depression; Hyperlipidemia; hj Hypertension; renal insufficiency; - PSHx: 08:45 None; hj - Immunization history:: Adult Immunizations not up to date. - Social history:: Smoking status: Patient/guardian denies using tobacco, Patient/guardian denies using alcohol. - Ebola Screening: : Patient negative for fever greater than or equal to 101.5 degrees Fahrenheit, and additional compatible Ebola Virus Disease symptoms Patient denies exposure to infectious person Patient denies travel to an Ebola-affected area in the 21 days before illness onset. - Family history:: not pertinent. - Hospitalizations: : No recent hospitalization is reported. ROS: 08:54 Constitutional: Negative for weight loss Eyes: Negative for injury, pain, redness, and rn supplemental, ENT: + sinus pressure and nasal congestion Neck: Negative for injury, pain, and swelling, Cardiovascular: Negative for chest pain, palpitations, and edema, Respiratory: + cough Abdomen/GI: Negative for abdominal pain, nausea, vomiting, diarrhea, and constipation, MS/Extremity: Negative for injury and deformity, Skin: Negative for injury, rash, and discoloration, Neuro: + generalized weakness Exam: 08:54 Constitutional: This is a well developed, well nourished patient who is awake, alert, rn and in no acute distress. Head/Face: Normocephalic, atraumatic. Eyes: Pupils equal round and reactive to light, extra-ocular motions intact. Lids and lashes normal. Conjunctiva and sclera are non-icteric and not injected. Cornea within normal limits. Periorbital areas with no swelling, redness, or edema. ENT: MMM< mild pharyngeal erythema, no stridor, no exudate or lesions Neck: NO masses or LAD Respiratory: Lungs have equal breath sounds bilaterally, clear to auscultation and percussion. No rales, rhonchi or wheezes noted. No increased work of breathing, no retractions or nasal flaring. Skin: Warm, dry with normal turgor. Normal color with no rashes, no lesions, and no evidence of cellulitis. MS/ Extremity: Pulses equal, no cyanosis. Neurovascular intact. Full, normal range of motion. Equal circumference. Neuro: Awake and alert, GCS 15, oriented to person, place, time, and situation. Cranial nerves II-XII grossly intact. Motor strength 5/5 in all extremities. Sensory grossly intact. Cerebellar exam normal. Normal gait. Vital Signs: 08:46 BP 147 / 92; Pulse 66; Resp 18; Temp 97.4; Pulse Ox 98% on R/A; Weight 86.18 kg; Height hj 5 ft. 7 in. (170.18 cm); Pain 7/10; 08:46 Body Mass Index 29.76 (86.18 kg, 170.18 cm) hj MDM: 08:47 Patient medically screened. rn 10:08 Differential Diagnosis: Influenza Upper Respiratory Infection Sinusitis Pharyngitis rn Viral Syndrome. Data reviewed: vital signs, nurses notes, lab test result(s), and as a result, I will discharge patient. Counseling: I had a detailed discussion with the patient and/or guardian regarding: the historical points, exam findings, and any diagnostic results supporting the discharge/admit diagnosis, lab results, the need for outpatient follow up, to return to the emergency department if symptoms worsen or persist or if there are any questions or concerns that arise at home. Special discussion: I discussed with the patient/guardian in detail that at this point there is no indication for admission to the hospital. It is understood, however, that if the symptoms persist or worsen the patient needs to return immediately for re-evaluation. 09/02 08:54 Order name: Flu; Complete Time: 10:08 rn 09/02 08:54 Order name: Strep; Complete Time: 09:41 rn 09/02 09:17 Order name: Throat Culture EDMS Administered Medications: No medications were administered Disposition: 09/02/18 10:08 Discharged to Home. Impression: Acute upper respiratory infection, unspecified, Viral syndrome, Asthma. - Condition is Stable. - Discharge Instructions: Asthma, Adult, Upper Respiratory Infection, Adult, Viral Respiratory Infection. - Prescriptions for Prednisone 20 mg Oral Tablet - take 3 tablet by ORAL route once daily for 5 days; 15 tablet. Albuterol Sulfate 90 mcg/actuation - inhale 1-2 puff by INHALATION route every 4-6 hours; 1 Inhaler. - Medication Reconciliation Form, Thank You Letter, Antibiotic Education, Prescription Opioid Use form. - Follow up: Private Physician; When: As needed; Reason: Recheck today's complaints, Re-evaluation by your physician. - Problem is new. - Symptoms are unchanged. Signatures: Dispatcher [employer] EDMS Dahiana Arellano RN RN sv Nieto, Roman, MD MD rn Joaquin, Henry, RN RN Corrections: (The following items were deleted from the chart) 08:59 08:54 Constitutional: This is a well developed, well nourished patient who is awake, rn alert, and in no acute distress. Head/Face: Normocephalic, atraumatic. Eyes: Pupils equal round and reactive to light, extra-ocular motions intact. Lids and lashes normal. Conjunctiva and sclera are non-icteric and not injected. Cornea within normal limits. Periorbital areas with no swelling, redness, or edema. ENT: MMM< mild pharyngeal erythema, no stridor, no exudate or lesions Neck: NO masses or LAD Skin: Warm, dry with normal turgor. Normal color with no rashes, no lesions, and no evidence of cellulitis. MS/ Extremity: Pulses equal, no cyanosis. Neurovascular intact. Full, normal range of motion. Equal circumference. Neuro: Awake and alert, GCS 15, oriented to person, place, time, and situation. Cranial nerves II-XII grossly intact. Motor strength 5/5 in all extremities. Sensory grossly intact. Cerebellar exam normal. Normal gait. rn 10:13 10:08 09/02/2018 10:08 Discharged to Home. Impression: Acute upper respiratory sv infection, unspecified; Viral syndrome; Asthma. Condition is Stable. Discharge Instructions: Asthma, Adult, Upper Respiratory Infection, Adult. Prescriptions for Prednisone 20 mg Oral Tablet - take 3 tablet by ORAL route once daily for 5 days; 15 tablet, Albuterol Sulfate 90 mcg/actuation - inhale 1-2 puff by INHALATION route every 4-6 hours; 1 Inhaler. and Forms are Medication Reconciliation Form, Thank You Letter, Antibiotic Education, Prescription Opioid Use. Follow up: Private Physician; When: As needed; Reason: Recheck today's complaints, Re-evaluation by your physician. Problem is new. Symptoms are unchanged. rn
--- NOTE | 2018-09-02 10:09 | ER ---
Nurse's Notes [facility] Name: Lucille King Age: 58 yrs Sex: Male : 1960 Arrival Date: 09/02/2018 Time: 08:40 Bed 5 Private MD: KUNAL REGAN Diagnosis: Acute upper respiratory infection, unspecified;Viral syndrome;Asthma Presentation: 09/02 08:42 Presenting complaint: Patient states: i started having cough since Saturday and pressure hj headache, hx of asthma, reports SOB and wheezing; reports on and off feeling cold; denies taking OTC meds for cough;. Transition of care: patient was not received from another setting of care. Onset of symptoms was September 02, 2018. Risk Assessment: Do you want to hurt yourself or someone else? Patient reports no desire to harm self or others. Initial Sepsis Screen: Does the patient meet any 2 criteria? No. Patient's initial sepsis screen is negative. Does the patient have a suspected source of infection? No. Patient's initial sepsis screen is negative. Care prior to arrival: None. 08:42 Method Of Arrival: Ambulatory 08:42 Acuity: DANISHA 4 hj Triage Assessment: 08:45 Headache History: The patient has had previous headaches. General: Appears in no hj apparent distress. uncomfortable, Behavior is calm, cooperative, appropriate for age. Pain: Pain currently is 7 out of 10 on a pain scale. Pain began 2-3 days ago. Also complains of nausea. Neuro: Level of Consciousness is awake, alert, obeys commands, Oriented to person, place, time, situation, Appropriate for age. Historical: - Allergies: 08:45 Augmentin; hj 08:45 Bactrim; 08:45 Cipro; hj - Home Meds: 08:45 Albuterol Inhl [Active]; Flomax Oral [Active]; Guaifenesin Oral [Active]; Protonix Oral hj [Active]; Respiradone [Active]; Symbicort inhalation [Active]; Zebeta 10 mg Oral tab 1 tab once daily [Active]; - PMHx: 08:45 Anxiety; Asthma; Bipolar disorder; born with 1 kidney; Depression; Hyperlipidemia; hj Hypertension; renal insufficiency; - PSHx: 08:45 None; hj - Immunization history:: Adult Immunizations not up to date. - Social history:: Smoking status: Patient/guardian denies using tobacco, Patient/guardian denies using alcohol. - Ebola Screening: : Patient negative for fever greater than or equal to 101.5 degrees Fahrenheit, and additional compatible Ebola Virus Disease symptoms Patient denies exposure to infectious person Patient denies travel to an Ebola-affected area in the 21 days before illness onset. - Family history:: not pertinent. - Hospitalizations: : No recent hospitalization is reported. Screenin:46 Abuse screen: Denies threats or abuse. Denies injuries from another. Nutritional hj screening: No deficits noted. Tuberculosis screening: No symptoms or risk factors identified. Fall Risk None identified. Assessment: 08:50 General: Appears in no apparent distress. uncomfortable, well developed, Behavior is sv calm, cooperative, appropriate for age. Pain: Complains of pain in forehead, right cheek and left cheek Pain currently is 7 out of 10 on a pain scale. Neuro: Level of Consciousness is awake, alert, obeys commands, Oriented to person, place, time, situation, Moves all extremities. Full function Gait is steady, Speech is normal. Respiratory: Reports shortness of breath cough that is non-productive, Airway is patent Respiratory effort is even, unlabored, Respiratory pattern is regular, symmetrical. Derm: Skin is normal. 10:13 Reassessment: Patient appears in no apparent distress at this time. No changes from sv previously documented assessment. Patient and/or family updated on plan of care and expected duration. Pain level reassessed. Patient is alert, oriented x 3, equal unlabored respirations, skin warm/dry/pink. Vital Signs: 08:46 BP 147 / 92; Pulse 66; Resp 18; Temp 97.4; Pulse Ox 98% on R/A; Weight 86.18 kg; Height hj 5 ft. 7 in. (170.18 cm); Pain 7/10; 08:46 Body Mass Index 29.76 (86.18 kg, 170.18 cm) ED Course: 08:40 Patient arrived in ED. sb2 08:40 KUNAL REGAN is Private Physician. sb2 08:44 Triage completed. hj 08:46 Arm band placed on right wrist. hj 08:46 Patient has correct armband on for positive identification. Bed in low position. Call light in reach. Side rails up X 1. 08:47 Daniel Joshi MD is Attending Physician. rn 08:48 Dahiana Arellano RN is Primary Nurse. sv 08:58 Flu and/or RSV swab sent to lab. Strep swab sent to lab. sv 09:01 Awaiting lab results. sv 09:17 Throat Culture Sent. sv 10:13 No provider procedures requiring assistance completed. Patient did not have IV access sv during this emergency room visit. Administered Medications: No medications were administered Outcome: 10:08 Discharge ordered by MD. rn 10:13 Patient left the ED. sv 10:13 Discharged to home ambulatory. sv 10:13 Condition: stable 10:13 Discharge instructions given to patient, Instructed on discharge instructions, follow up and referral plans. medication usage, Demonstrated understanding of instructions, follow-up care, medications, Prescriptions given X 2. Signatures: Dahiana Arellano, RN RN Daniel Joshi MD MD rn Joaquin, Henry, RN RN hj Billeau, Sheri sb2 Corrections: (The following items were deleted from the chart) 08:49 08:46 Pulse 66bpm; Resp 18bpm; Pulse Ox 98% RA; Temp 97.4F; 86.18 kg; Height 5 ft. 7 hj in.; BMI: 29.7; Pain 7/10; hj 08:55 08:42 Acuity: DANISAH 3 hj hj
[2018-09-02 15:19] VITALS: BP 147/92; TEMP 97.4; O2SAT 98
== END 2018-09-02 10:13 | disposition home or self-care (01) ==
LOC: ER 08:36
DX: J06.9 Acute upper respiratory infection, unspecified (principal); B34.9 Viral infection, unspecified; J45.909 Unspecified asthma, uncomplicated; I10 Essential (primary) hypertension; F31.9 Bipolar disorder, unspecified; F41.9 Anxiety disorder, unspecified; E78.5 Hyperlipidemia, unspecified; Z79.51 Long term (current) use of inhaled steroids; Z79.899 Other long term (current) drug therapy; Z90.5 Acquired absence of kidney
CPT/HCPCS: 87070; 87081; 87804; 99283

== ENCOUNTER 2018-09-13 00:38 | Emergency (ER) | payer OTHER ==
--- OUTSIDE RECORDS SUMMARY | 2018-09-13 00:41 | XMS REPORT | Clinical Summary ---
:1960 Author Organization [facility] Address [address] [place] [address] Care Team Providers Name Role Phone Bebo [...] INFLUENZA VACCINE 03/26/2018 Results Not on fileafter 09/12/2017 Insurance Payer Benefit Plan / Group Subscriber ID Type Phone Address MEDICARE MEDICARE PART A AND B xxxxxxxxxx Medicare [place], [place] Advance Directives Patient has advance care planning documents on file. For more information, please contact:Preston Childs[address] [place] [address]
--- OUTSIDE RECORDS SUMMARY | 2018-09-13 00:41 | XMS REPORT ---
:1960 [facility] Address [address] [place] [address] Dr. Lackey[address] [place] [id number] Care Team Providers Name Role Phone Unavailable Unavailable Unavailable Problems This patient has no known problems. Allergies, Adverse Reactions, Alerts This patient has no known allergies or adverse reactions. Medications This patient has no known medications.
--- NOTE | 2018-09-13 02:10 | EDPHYS ---
Physician Documentation [facility] Name: Lucille King Age: 58 yrs Sex: Male : 1960 Arrival Date: 09/13/2018 Time: 00:43 Bed 2 Private MD: ED Physician Kyle Rosales HPI: 09/13 01:19 This 58 yrs old Black Male presents to ER via Ambulatory with complaints of Cough. kb 01:19 The patient or guardian reports cough, that is intermittent, described as moderate, kb with no sputum. Onset: The symptoms/episode began/occurred today. Severity of symptoms: At their worst the symptoms were mild, moderate, in the emergency department the symptoms are unchanged. Modifying factors: The symptoms are alleviated by nothing, the symptoms are aggravated by nothing. Associated signs and symptoms: The patient has no apparent associated signs or symptoms. The patient has experienced similar episodes in the past, a few times. The patient has not recently seen a physician. Pt reports he has had a cough for a few days. Today had a coughing fit that made him dizzy so he wanted to get checked out . Historical: - Allergies: 00:54 Augmentin; ak1 00:54 Bactrim; ak1 00:54 Cipro; ak1 - Home Meds: 00:54 Albuterol Inhl [Active]; Protonix Oral [Active]; Zebeta 10 mg Oral tab 1 tab once daily ak1 [Active]; Symbicort inhalation [Active]; Respiradone [Active]; Flomax Oral [Active]; Xanax Oral [Active]; Celexa 40 mg Oral tab 1 tab once daily [Active]; - PMHx: 00:54 Anxiety; Asthma; Bipolar disorder; born with 1 kidney; Depression; Hyperlipidemia; ak1 Hypertension; renal insufficiency; - PSHx: 00:54 None; ak1 - Immunization history:: Adult Immunizations unknown. - Social history:: Smoking status: Patient/guardian denies using tobacco. - Ebola Screening: : No symptoms or risks identified at this time. ROS: 01:17 Constitutional: Negative for fever, chills, and weight loss, ENT: Negative for injury, kb pain, and discharge, Neck: Negative for injury, pain, and swelling, Cardiovascular: Negative for chest pain, palpitations, and edema, Abdomen/GI: Negative for abdominal pain, nausea, vomiting, diarrhea, and constipation, Back: Negative for injury and pain, : Negative for injury, bleeding, discharge, and swelling, MS/Extremity: Negative for injury and deformity, Skin: Negative for injury, rash, and discoloration. 01:17 Respiratory: Positive for cough, with no reported sputum, Negative for dyspnea on exertion, hemoptysis, orthopnea, pleurisy, shortness of breath, sputum production, wheezing. 01:17 Neuro: Positive for dizziness, Negative for altered mental status, gait disturbance, headache, hearing loss, loss of consciousness, numbness, seizure activity, speech changes, syncope, near syncope, tingling, tinnitus, tremor, visual changes, weakness. Exam: 01:19 Constitutional: This is a well developed, well nourished patient who is awake, alert, kb and in no acute distress. Head/Face: Normocephalic, atraumatic. ENT: Nares patent. No nasal discharge, no septal abnormalities noted. Tympanic membranes are normal and external auditory canals are clear. Oropharynx with no redness, swelling, or masses, exudates, or evidence of obstruction, uvula midline. Mucous membranes moist. Neck: Trachea midline, no thyromegaly or masses palpated, and no cervical lymphadenopathy. Supple, full range of motion without nuchal rigidity, or vertebral point tenderness. No Meningismus. Chest/axilla: Normal chest wall appearance and motion. Nontender with no deformity. No lesions are appreciated. Cardiovascular: Regular rate and rhythm with a normal S1 and S2. No gallops, murmurs, or rubs. Normal PMI, no JVD. No pulse deficits. Respiratory: Lungs have equal breath sounds bilaterally, clear to auscultation and percussion. No rales, rhonchi or wheezes noted. No increased work of breathing, no retractions or nasal flaring. Abdomen/GI: Soft, non-tender, with normal bowel sounds. No distension or tympany. No guarding or rebound. No evidence of tenderness throughout. Skin: Warm, dry with normal turgor. Normal color with no rashes, no lesions, and no evidence of cellulitis. MS/ Extremity: Pulses equal, no cyanosis. Neurovascular intact. Full, normal range of motion. Neuro: Awake and alert, GCS 15, oriented to person, place, time, and situation. Cranial nerves II-XII grossly intact. Motor strength 5/5 in all extremities. Sensory grossly intact. Cerebellar exam normal. Normal gait. Vital Signs: 00:54 BP 164 / 101; Pulse 59; Resp 18; Temp 98.3(O); Pulse Ox 99% on R/A; Weight 86.18 kg ak1 (R); Height 5 ft. 6 in. (167.64 cm) (R); Pain 0/10; 01:52 Pulse 60; Resp 18; Pulse Ox 98% on R/A; ak1 02:09 BP 144 / 88; Pulse 64; Resp 18; Pulse Ox 98% on R/A; ak1 00:54 Body Mass Index 30.67 (86.18 kg, 167.64 cm) ak1 MDM: 00:54 Patient medically screened. kb 01:17 Data reviewed: vital signs, nurses notes. Data interpreted: Pulse oximetry: on room air kb is 99 %. Interpretation: normal. Counseling: I had a detailed discussion with the patient and/or guardian regarding: the historical points, exam findings, and any diagnostic results supporting the discharge/admit diagnosis, radiology results, the need for outpatient follow up, a family practitioner, to return to the emergency department if symptoms worsen or persist or if there are any questions or concerns that arise at home. 09/13 01:05 Order name: Chest Pa And Lat (2 Views) XRAY kb 09/13 01:05 Order name: EKG; Complete Time: 01:05 kb 09/13 01:05 Order name: EKG - Nurse/Tech; Complete Time: 01:17 kb Administered Medications: 01:05 CANCELLED (Physician Discretion): cloNIDine 0.1 mg PO once kb Disposition: 09/13/18 02:09 Discharged to Home. Impression: Cough. - Condition is Stable. - Discharge Instructions: Cough, Adult, [id number]. - Prescriptions for Tessalon Perles 100 mg Oral Capsule - take 1 capsule by ORAL route every 8 hours As needed; 15 capsule. - Medication Reconciliation Form, Thank You Letter, Antibiotic Education, Prescription Opioid Use form. - Follow up: Emergency Department; When: As needed; Reason: Worsening of condition. Follow up: Private Physician; When: 2 - 3 days; Reason: Recheck today's complaints, Continuance of care, Re-evaluation by your physician. Addendum: 09/20/2018 03:27 Co-signature as Attending Physician, Kyle Rosales MD. g s Signatures: Dispatcher [employer] EDKimberly Zazueta, REBECA-Brannon JOSE-Kaylen Acuña, RN RN ak1 Kyle Rosales MD MD Corrections: (The following items were deleted from the chart) 09/13 01:05 01:05 cloNIDine 0.1 mg PO once ordered. kb kb 02:19 02:09 09/13/2018 02:09 Discharged to Home. Impression: Cough. Condition is Stable. ak1 Forms are Medication Reconciliation Form, Thank You Letter, Antibiotic Education, Prescription Opioid Use. Follow up: Emergency Department; When: As needed; Reason: Worsening of condition. Follow up: Private Physician; When: 2 - 3 days; Reason: Recheck today's complaints, Continuance of care, Re-evaluation by your physician. kb
--- NOTE | 2018-09-13 02:10 | ER ---
Nurse's Notes 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 pt stated he was seen in ER ak1 recently for cough that resolved and has returned. Transition of care: patient was not received from another setting of care. Onset of symptoms is unknown. Risk Assessment: Do you want to hurt yourself or someone else? Patient reports no desire to harm self or others. Initial Sepsis Screen: Does the patient meet any 2 criteria? No. Patient's initial sepsis screen is negative. Does the patient have a suspected source of infection? No. Patient's initial sepsis screen is negative. Care prior to arrival: None. 00:51 Method Of Arrival: Ambulatory ak1 00:51 Acuity: DANISHA 4 ak1 Triage Assessment: 00:54 General: Appears in no apparent distress. Behavior is calm, cooperative. Pain: Denies ak1 pain. EENT: No signs and/or symptoms were reported regarding the EENT system. Neuro: No deficits noted. Cardiovascular: No deficits noted. 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 GI: No signs and/or symptoms were reported involving the gastrointestinal system. : No signs and/or symptoms were reported regarding the genitourinary system. Derm: No signs and/or symptoms reported regarding the dermatologic system. Musculoskeletal: No signs and/or symptoms reported regarding the musculoskeletal system. Historical: - Allergies: 00:54 Augmentin; ak1 00:54 Bactrim; ak1 00:54 Cipro; ak1 - Home Meds: 00:54 Albuterol Inhl [Active]; Protonix Oral [Active]; Zebeta 10 mg Oral tab 1 tab once daily ak1 [Active]; Symbicort inhalation [Active]; Respiradone [Active]; Flomax Oral [Active]; Xanax Oral [Active]; Celexa 40 mg Oral tab 1 tab once daily [Active]; - PMHx: 00:54 Anxiety; Asthma; Bipolar disorder; born with 1 kidney; Depression; Hyperlipidemia; ak1 Hypertension; renal insufficiency; - PSHx: 00:54 None; ak1 - Immunization history:: Adult Immunizations unknown. - Social history:: Smoking status: Patient/guardian denies using tobacco. - Ebola Screening: : No symptoms or risks identified at this time. Screenin:55 Abuse screen: Denies threats or abuse. Denies injuries from another. Nutritional ak1 screening: No deficits noted. Tuberculosis screening: No symptoms or risk factors identified. Fall Risk None identified. Assessment: 00:56 Reassessment: Patient appears in no apparent distress at this time. No changes from ak1 previously documented assessment. Patient and/or family updated on plan of care and expected duration. Pain level reassessed. Patient is alert, oriented x 3, equal unlabored respirations, skin warm/dry/pink. see triage assessment. 01:52 Reassessment: Patient appears in no apparent distress at this time. No changes from ak1 previously documented assessment. Patient and/or family updated on plan of care and expected duration. Pain level reassessed. Patient is alert, oriented x 3, equal unlabored respirations, skin warm/dry/pink. Vital Signs: 00:54 BP 164 / 101; Pulse 59; Resp 18; Temp 98.3(O); Pulse Ox 99% on R/A; Weight 86.18 kg ak1 (R); Height 5 ft. 6 in. (167.64 cm) (R); Pain 0/10; 01:52 Pulse 60; Resp 18; Pulse Ox 98% on R/A; ak1 02:09 BP 144 / 88; Pulse 64; Resp 18; Pulse Ox 98% on R/A; ak1 00:54 Body Mass Index 30.67 (86.18 kg, 167.64 cm) ak1 ED Course: 00:43 Patient arrived in ED. ag3 00:50 Kaylen Epps, RN is Primary Nurse. ak1 00:51 Triage completed. ak1 00:53 Kimberly Yeung FNP-C is [facility]. kb 00:53 Kyle Rosales MD is Attending Physician. kb 00:54 Arm band placed on Patient placed in an exam room, on a stretcher, on pulse oximetry, ak1 Patient notified of wait time. 00:56 Patient has correct armband on for positive identification. Bed in low position. Call ak1 light in reach. Side rails up X 1. Pulse ox on. NIBP on. 01:41 Patient moved to radiology via wheelchair. sg4 01:41 X-ray completed. Patient tolerated procedure well. sg4 01:42 Chest Pa And Lat (2 Views) XRAY In Process Unspecified. EDMS 02:11 No provider procedures requiring assistance completed. Patient did not have IV access ak1 during this emergency room visit. Administered Medications: 01:05 CANCELLED (Physician Discretion): cloNIDine 0.1 mg PO once kb Outcome: 02:09 Discharge ordered by . kb 02:11 Discharged to home ambulatory. ak1 02:11 Condition: good 02:11 Discharge instructions given to patient, Instructed on discharge instructions, follow up and referral plans. no drinking with medication, no driving heavy equipment, medication usage, Demonstrated understanding of instructions, follow-up care, medications, Prescriptions given X 1. 02:19 Patient left the ED. ak1 Signatures: Dispatcher [employer] EDFL Kimberly Yeung, Kaylen Robles RN RN ak1 Marianne Solis3 Florence Mario sg4
[2018-09-13 03:33] VITALS: TEMP 98.3
[2018-09-13 03:34] VITALS: O2SAT 98
[2018-09-13 03:35] VITALS: BP 144/88
--- NOTE | 2018-09-13 10:56 | RAD REPORT ---
EXAM DESCRIPTION: Neelam Sanchez (2 Views)09/13/2018 1:43 am CLINICAL HISTORY: Cough COMPARISON: June 2018 FINDINGS: The lungs appear clear of acute infiltrate. The heart is normal size IMPRESSION: No acute abnormalities displayed
--- NOTE | 2018-09-13 14:14 | EKG ---
Test Date: 2018-09-13 Test Time: 01:08:06 Molecular Physicist: CACHORRO MEASUREMENT RESULTS: Intervals: Rate: 58 SC: 166 QRSD: 88 QT: 452 QTc: 443 [place]: P: 51 SC: 166 QRS: 1 T: 11 INTERPRETIVE STATEMENTS: Sinus bradycardia with occasional premature ventricular complexes Otherwise normal ECG Compared to ECG 07/11/2018 00:08:07 Ventricular premature complex(es) now present Left ventricular hypertrophy no longer present T-wave abnormality no longer present Electronically Signed On 09-13-18 14:12:57 COMMODITY TRADER by Sree Allen
== END 2018-09-13 02:19 | disposition home or self-care (01) ==
LOC: ER 00:38
DX: R05 Cough (principal); I10 Essential (primary) hypertension; F41.8 Other specified anxiety disorders; E78.5 Hyperlipidemia, unspecified; Z88.1 Allergy status to other antibiotic agents
CPT/HCPCS: 71046; 93005

== ENCOUNTER 2019-03-20 22:51 | Emergency (ER) | payer OTHER ==
--- OUTSIDE RECORDS SUMMARY | 2019-03-20 22:53 | XMS REPORT | Clinical Summary ---
:1960 Author Organization [facility] Address [address] [place] [address] Care Team Providers Name Role Phone Bebo [...] Maintenance Due Date Last Done Comments COLONOSCOPY SCREENING 2008 SHINGLES VACCINES (#1) 2008 INFLUENZA VACCINE 03/26/2019 Results Not on fileafter 03/19/2018 Insurance Payer Benefit Plan / Subscriber ID Effective Dates Phone Address Type Group MEDICARE MEDICARE PART A xxxxxxxxxx 1995-Present [place], [place] Medicare AND B Advance Directives Patient has advance care planning documents on file. For more information, please contact:Preston Childs[address] [place] [address]
--- OUTSIDE RECORDS SUMMARY | 2019-03-20 22:53 | XMS REPORT ---
:1960 [facility] Address [address] [place] [address] Dr. Rios [address] [place] [id number] Care Team Providers Name Role Phone Unavailable Unavailable Unavailable Problems This patient has no known problems. Allergies, Adverse Reactions, Alerts This patient has no known allergies or adverse reactions. Medications This patient has no known medications.
[2019-03-21] MEDS ORDERED: NA CHLORIDE 0.9% 1,000 ML ONE (00:44)
[2019-03-21 00:59] LABS: Absolute Lymphocytes (CBC) 2.1 K/uL (0.7-4.9); Basophils % 0.4 % (0-1.3); Hematocrit 44.8 % (39.6-49.0); Lymphocytes % 20.7 % (15.3-44.8); MPV 8.1 fL (7.6-11.3)
[2019-03-21 01:03] LABS: ALT/SGPT 28 U/L (12-78); AST/SGOT 17 U/L (15-37); Albumin 3.6 g/dL (3.4-5.0); Alkaline Phosphatase 90 U/L (45-117); BUN Blood Urea Nitrogen 20 mg/dL (7-18); Bicarbonate 28 mmol/L (21-32); Bilirubin Direct < 0.1 mg/dL (0-0.2); Bilirubin Total 0.3 mg/dL (0.2-1.0); Glucose Level 97 mg/dL (74-106); Lipase 59 U/L (73-393); Potassium 3.7 mmol/L (3.5-5.1); Protein, Total 7.7 g/dL (6.4-8.2); Sodium Level 139 mmol/L (136-145)
--- NOTE | 2019-03-21 01:54 | EDPHYS ---
Physician Documentation [facility] Name: Lucille King Age: 58 yrs Sex: Male : 1960 Arrival Date: 03/20/2019 Time: 22:53 Bed 27 Private MD: ED Physician Daniel Joshi HPI: 03/21 00:00 This 58 yrs old Black Male presents to ER via Ambulatory with complaints of Dizziness, pm1 Low back pain. 00:00 The patient presents with dizziness. Onset: The symptoms/episode began/occurred 3 pm1 day(s) ago. Context: Onset after taking metformin. Patient has not been diagnosed with diabetes. Was told that he was showing signs of insulin resistance so started on metformin. Patient last took metformin at 0800 today and his symptoms of dizziness are starting to improve. Modifying factors: The symptoms are alleviated by nothing, the symptoms are aggravated by nothing. Associated signs and symptoms: Pertinent positives: Low back pain for [address] stone protocol study next week. Severity of symptoms: in the emergency department the symptoms have improved. The patient has been recently seen by a physician: the patient's primary care provider, and prescribed Metformin. Historical: - Allergies: 03/20 23:26 Augmentin; fc 23:26 Bactrim; fc 23:26 Cipro; fc - Home Meds: 23:26 albuterol sulfate 90 mcg/actuation inhalation HFAA 2 puffs qid prn [Active]; Risperdal fc 3 mg Oral tab 1 tab once daily [Active]; Celexa 40 mg Oral tab 1 tab once daily [Active]; trazodone 300 mg Oral tab 1 tab nightly [Active]; carvedilol 12.5 mg oral tab 1 tab 2 times per day [Active]; Xanax 0.5 mg oral tab 1 tab as needed [Active]; Symbicort 160-4.5 mcg/actuation inhalation HFAA 2 puffs 2 times per day [Active]; Zebeta 10 mg Oral tab 1 tab once daily [Active]; - PMHx: 23:26 Anxiety; pulmonary embolis; Hypertension; Bipolar disorder; Depression; Asthma; Panic fc Attacks; born with 1 kidney; Hyperlipidemia; renal insufficiency; - PSHx: 23:26 left rotator cuff repair; fc - Immunization history:: Last tetanus immunization: up to date. - Social history:: Smoking status: Patient/guardian denies using tobacco, Patient/guardian denies using alcohol, street drugs. - Ebola Screening: : Patient negative for fever greater than or equal to 101.5 degrees Fahrenheit, and additional compatible Ebola Virus Disease symptoms Patient denies exposure to infectious person Patient denies travel to an Ebola-affected area in the 21 days before illness onset. ROS: 03/21 00:00 Constitutional: Negative for fever, chills, and weight loss, Eyes: Negative for injury, pm1 pain, redness, and discharge, ENT: Negative for injury, pain, and discharge, Neck: Negative for injury, pain, and swelling, Cardiovascular: Negative for chest pain, palpitations, and edema, Respiratory: Negative for shortness of breath, cough, wheezing, and pleuritic chest pain, Abdomen/GI: Negative for abdominal pain, nausea, vomiting, diarrhea, and constipation. : Negative for injury, bleeding, discharge, and swelling, MS/Extremity: Negative for injury and deformity, Skin: Negative for injury, rash, and discoloration. Back: Positive for flank pain, on the right. Neuro: Positive for dizziness, Negative for numbness, tingling, weakness. Exam: 00:00 Constitutional: This is a well developed, well nourished patient who is awake, alert, pm1 and in no acute distress. Head/Face: Normocephalic, atraumatic. Eyes: Pupils equal round and reactive to light, extra-ocular motions intact. Lids and lashes normal. Conjunctiva and sclera are non-icteric and not injected. Cornea within normal limits. Periorbital areas with no swelling, redness, or edema. ENT: Nares patent. No nasal discharge, no septal abnormalities noted. Tympanic membranes are normal and external auditory canals are clear. Oropharynx with no redness, swelling, or masses, exudates, or evidence of obstruction, uvula midline. Mucous membranes moist. Neck: Trachea midline, no thyromegaly or masses palpated, and no cervical lymphadenopathy. Supple, full range of motion without nuchal rigidity, or vertebral point tenderness. No Meningismus. Chest/axilla: Normal chest wall appearance and motion. Nontender with no deformity. No lesions are appreciated. Cardiovascular: Regular rate and rhythm with a normal S1 and S2. No gallops, murmurs, or rubs. Normal PMI, no JVD. No pulse deficits. Respiratory: Lungs have equal breath sounds bilaterally, clear to auscultation and percussion. No rales, rhonchi or wheezes noted. No increased work of breathing, no retractions or nasal flaring. Abdomen/GI: Soft, non-tender, with normal bowel sounds. No distension or tympany. No guarding or rebound. No evidence of tenderness throughout. Back: No spinal tenderness. No costovertebral tenderness. Full range of motion. Skin: Warm, dry with normal turgor. Normal color with no rashes, no lesions, and no evidence of cellulitis. MS/ Extremity: Pulses equal, no cyanosis. Neurovascular intact. Full, normal range of motion. 00:00 Neuro: Orientation: is normal, Cranial nerves: CN II- XII are normal as tested, Cerebellar function: normal finger to nose testing, Motor: is normal, moves all fours, Sensation: is normal, no obvious gross deficits. Vital Signs: 03/20 23:00 BP 164 / 98; Pulse 77; Resp 18; Temp 98.7(O); Pulse Ox 100% on R/A; Weight 91.63 kg fc (R); Height 5 ft. 7 in. (170.18 cm) (R); Pain 6/10; 03/21 00:12 BP 150 / 86; Pulse 75; Resp 16 S; Pulse Ox 100% on R/A; ca1 00:30 BP 133 / 83; Pulse 70; Resp 16; Pulse Ox 100% on R/A; rv 01:00 BP 113 / 77; Pulse 71; Resp 17; Pulse Ox 100% on R/A; rv 01:30 BP 119 / 98; Pulse 61; Resp 16; Pulse Ox 100% on R/A; rv 03/20 23:00 Body Mass Index 31.64 (91.63 kg, 170.18 cm) fc MDM: 03/20 23:52 Patient medically screened. pm1 03/21 01:51 Data reviewed: vital signs. Data interpreted: Pulse oximetry: on room air is 100 %. pm1 Interpretation: normal. Counseling: I had a detailed discussion with the patient and/or guardian regarding: the historical points, exam findings, and any diagnostic results supporting the discharge/admit diagnosis, lab results, radiology results, the need for outpatient follow up, to return to the emergency department if symptoms worsen or persist or if there are any questions or concerns that arise at home. 03/20 23:39 Order name: Glucose, Ancillary Testing; Complete Time: 23:59 EDMS 03/20 23:59 Order name: Basic Metabolic Panel; Complete Time: 01:09 pm1 03/20 23:59 Order name: CBC with Diff; Complete Time: 01:09 pm1 03/20 23:59 Order name: Creatinine for Radiology; Complete Time: 01:09 pm1 03/20 23:59 Order name: Hepatic Function; Complete Time: 01:09 pm1 03/20 23:59 Order name: Lipase; Complete Time: 01:09 pm1 03/20 23:59 Order name: IV Saline Lock; Complete Time: 00:13 pm1 03/20 23:59 Order name: Labs collected and sent; Complete Time: 00:13 pm1 03/20 23:59 Order name: CT Stone Protocol pm1 03/20 23:59 Order name: EKG; Complete Time: 00:01 pm1 03/20 23:59 Order name: EKG - Nurse/Tech; Complete Time: 00:21 pm1 Administered Medications: 00:34 Drug: NS 0.9% 1000 ml Route: IV; Rate: 1000 ml; Site: right antecubital; rv 01:58 Follow up: IV Status: Completed infusion rv Disposition: 03:33 Co-signature as Attending Physician, Daniel Joshi MD. rn Disposition: 03/21/19 01:52 Discharged to Home. Impression: Low back pain, Dizziness and giddiness. - Condition is Stable. - Discharge Instructions: Back Pain, Adult, Dizziness. - Medication Reconciliation Form, Thank You Letter, Antibiotic Education, Prescription Opioid Use form. - Follow up: Emergency Department; When: As needed; Reason: Worsening of condition. Follow up: Private Physician; When: 2 - 3 days; Reason: Recheck today's complaints, Continuance of care, Re-evaluation by your physician. - Problem is new. - Symptoms have improved. Signatures: Dispatcher [employer] EDMN Ermelinda Mcfarland RN RN fc Nieto, Roman, MD MD rn Marinas, Patrick, CLOCKMAKER CLOCKMAKER pm1 Kody Louis RN RN rv Corrections: (The following items were deleted from the chart) 02:13 01:52 03/21/2019 01:52 Discharged to Home. Impression: Low back pain; Dizziness and rv giddiness. Condition is Stable. Forms are Medication Reconciliation Form, Thank You Letter, Antibiotic Education, Prescription Opioid Use. Follow up: Emergency Department; When: As needed; Reason: Worsening of condition. Follow up: Private Physician; When: 2 - 3 days; Reason: Recheck today's complaints, Continuance of care, Re-evaluation by your physician. Problem is new. Symptoms have improved. pm1
--- NOTE | 2019-03-21 01:54 | ER ---
Nurse's Notes [facility] Name: Lucille King Age: 58 yrs Sex: Male : 1960 Arrival Date: 03/20/2019 Time: 22:53 Bed 27 Private MD: Diagnosis: Low back pain;Dizziness and giddiness Presentation: 03/20 23:00 Presenting complaint: Patient states: that his dr gave him Metformin daily which he fc started 3 days ago for his blood being insulin resistant and to help him loose weight. Now he is having dizziness, shortness of breath and muscle spasms. Also his dr scheduled him for a CT because he is having left lower back pain and she thinks he is having a stone. Transition of care: patient was not received from another setting of care. Onset of symptoms was March 19, 2019. Risk Assessment: Do you want to hurt yourself or someone else? Patient reports no desire to harm self or others. Initial Sepsis Screen: Does the patient meet any 2 criteria? No. Patient's initial sepsis screen is negative. Does the patient have a suspected source of infection? No. Patient's initial sepsis screen is negative. Care prior to arrival: None. 23:00 Method Of Arrival: Ambulatory fc 23:00 Acuity: DANISHA 3 fc Historical: - Allergies: 23:26 Augmentin; fc 23:26 Bactrim; fc 23:26 Cipro; fc - Home Meds: 23:26 albuterol sulfate 90 mcg/actuation inhalation HFAA 2 puffs qid prn [Active]; Risperdal fc 3 mg Oral tab 1 tab once daily [Active]; Celexa 40 mg Oral tab 1 tab once daily [Active]; trazodone 300 mg Oral tab 1 tab nightly [Active]; carvedilol 12.5 mg oral tab 1 tab 2 times per day [Active]; Xanax 0.5 mg oral tab 1 tab as needed [Active]; Symbicort 160-4.5 mcg/actuation inhalation HFAA 2 puffs 2 times per day [Active]; Zebeta 10 mg Oral tab 1 tab once daily [Active]; - PMHx: 23:26 Anxiety; pulmonary embolis; Hypertension; Bipolar disorder; Depression; Asthma; Panic fc Attacks; born with 1 kidney; Hyperlipidemia; renal insufficiency; - PSHx: 23:26 left rotator cuff repair; fc - Immunization history:: Last tetanus immunization: up to date. - Social history:: Smoking status: Patient/guardian denies using tobacco, Patient/guardian denies using alcohol, street drugs. - Ebola Screening: : Patient negative for fever greater than or equal to 101.5 degrees Fahrenheit, and additional compatible Ebola Virus Disease symptoms Patient denies exposure to infectious person Patient denies travel to an Ebola-affected area in the 21 days before illness onset. Screenin:00 Abuse screen: Denies threats or abuse. Nutritional screening: No deficits noted. fc Tuberculosis screening: No symptoms or risk factors identified. Fall Risk None identified. Assessment: 23:20 General: Appears in no apparent distress. comfortable, Behavior is calm, cooperative, ca1 appropriate for age. Pain: Denies pain. Neuro: Level of Consciousness is awake, alert, obeys commands, Oriented to person, place, time, situation, Personal Companion are equal bilaterally Moves all extremities. Gait is steady, Speech is normal, Facial symmetry appears normal, Reports dizziness, since Saturday. Neuro: Reports a syncopal episode. Cardiovascular: Heart tones S1 S2 present Capillary refill < 3 seconds Patient's skin is warm and dry. Respiratory: Airway is patent Respiratory effort is even, unlabored, Respiratory pattern is regular, symmetrical, Breath sounds are clear bilaterally. GI: Abdomen is round non-distended, Bowel sounds present X 4 quads. Abd is soft and non tender X 4 quads. : No deficits noted. No signs and/or symptoms were reported regarding the genitourinary system. EENT: No deficits noted. No signs and/or symptoms were reported regarding the EENT system. Derm: Skin is intact, is healthy with good turgor, Skin is pink, warm \T\ dry. Musculoskeletal: Circulation, motion, and sensation intact. Capillary refill < 3 seconds, Range of motion: intact in all extremities. 03/21 00:12 Reassessment: Patient appears in no apparent distress at this time. Patient and/or ca1 family updated on plan of care and expected duration. Pain level reassessed. Patient is alert, oriented x 3, equal unlabored respirations, skin warm/dry/pink. 01:03 Reassessment: Patient appears in no apparent distress at this time. Patient and/or rv family updated on plan of care and expected duration. Pain level reassessed. Patient is alert, oriented x 3, equal unlabored respirations, skin warm/dry/pink. awaiting CT scan report. Vital Signs: 03/20 23:00 BP 164 / 98; Pulse 77; Resp 18; Temp 98.7(O); Pulse Ox 100% on R/A; Weight 91.63 kg fc (R); Height 5 ft. 7 in. (170.18 cm) (R); Pain 6/10; 03/21 00:12 BP 150 / 86; Pulse 75; Resp 16 S; Pulse Ox 100% on R/A; ca1 00:30 BP 133 / 83; Pulse 70; Resp 16; Pulse Ox 100% on R/A; rv 01:00 BP 113 / 77; Pulse 71; Resp 17; Pulse Ox 100% on R/A; rv 01:30 BP 119 / 98; Pulse 61; Resp 16; Pulse Ox 100% on R/A; rv 03/20 23:00 Body Mass Index 31.64 (91.63 kg, 170.18 cm) ED Course: 03/20 22:53 Patient arrived in ED. ds1 23:00 Arm band placed on Patient placed in an exam room, on a stretcher. fc 23:00 Patient has correct armband on for positive identification. Placed in gown. Bed in low fc position. Call light in reach. Side rails up X 1. child monitor on. Pulse ox on. NIBP on. 23:00 No provider procedures requiring assistance completed. fc 23:19 Darcie Martinez, KEELEY is Primary Nurse. ca1 23:20 Jaylen Camacho NP is PHCP. pm1 23:20 Daniel Joshi MD is Attending Physician. pm1 23:22 Triage completed. 03/21 00:12 Initial lab(s) drawn, by co, sent to lab. Inserted saline lock: 20 gauge in left lt1 antecubital area, using aseptic technique. 00:57 CT completed. Patient tolerated procedure well. Patient moved to CT via stretcher. Patient moved back from [place]. 01:04 CT Stone Protocol In Process Unspecified. EDMS 02:13 IV discontinued, intact, bleeding controlled, No redness/swelling at site. Pressure rv dressing applied. Administered Medications: 00:34 Drug: NS 0.9% 1000 ml Route: IV; Rate: 1000 ml; Site: right antecubital; rv 01:58 Follow up: IV Status: Completed infusion rv Outcome: 01:52 Discharge ordered by MD. pm1 01:58 Discharged to home ambulatory. rv 01:58 Condition: good 01:58 Discharge instructions given to patient, Instructed on discharge instructions, follow up and referral plans. Demonstrated understanding of instructions, follow-up care. 02:13 Patient left the ED. rv Signatures: Dispatcher [employer] Mega Boyd Felicia, RN RN Graciela Bruno ds1 Jaylen Camacho, [employer] pm1 Kody Louis RN RN rv Darcie Martinez RN RN [facility] Linnea Goodman [facility]
[2019-03-21 02:49] VITALS: TEMP 98.7; O2SAT 100
[2019-03-21 02:55] VITALS: BP 119/98
--- NOTE | 2019-03-21 12:12 | RAD REPORT ---
EXAM DESCRIPTION: CT - Stone Protocol - 03/21/2019 4:59 am CLINICAL HISTORY: FLANK PAIN COMPARISON: None. TECHNIQUE: CT ABDOMEN PELVIS WITHOUT IV CONTRAST on 03/20/2019 11:59 PM CDT This exam was performed according to our departmental dose-optimization program, which includes autom ated exposure control, adjustment of the mA and/or kV according to patient size and/or use of iterati ve reconstruction technique. FINDINGS: Lower lungs are clear. Abdomen: The liver is normal in appearance. There is no biliary dilatation. Gallbladder is decompress ed. The pancreas and spleen are normal in appearance. The adrenal glands are normal. Right kidney sev erely and chronically atrophic. Left kidney is relatively normal. Abdominal aorta is normal in course and caliber without aneurysm. There is no free air. There is no r etroperitoneal adenopathy. Pelvis: There is no bowel obstruction. Urinary bladder is unremarkable. There is no free fluid. Appen jocelyn is normal. There is a small fat-containing right inguinal hernia containing fat only. Skeleton: There are no acute osseous findings. No suspicious bony lesions. IMPRESSION: Normal appearance of the left kidney. Chronic severe right renal atrophy. Electronically signed by: Avery Vásquez MD 03/21/2019 1:17 AM CDT Due to temporary technical issues with the PACS/Fluency reporting system, reports are being signed by the in house radiologist as a courtesy to ensure prompt reporting. The interpreting radiologist is f ully responsible for the content of the report.
--- NOTE | 2019-03-22 06:31 | EKG ---
Test Date: 2019-03-21 Test Time: 00:16:52 Registration Representative: RV MEASUREMENT RESULTS: Intervals: Rate: 70 ME: 182 QRSD: 104 QT: 432 QTc: 466 [place]: P: 59 ME: 182 QRS: -26 T: 57 INTERPRETIVE STATEMENTS: Normal sinus rhythm Normal ECG Compared to ECG 09/13/2018 01:08:06 Sinus bradycardia no longer present Ventricular premature complex(es) no longer present Electronically Signed On 03-22-19 06:29:57 CDT by Toribio Khan
== END 2019-03-21 02:13 | disposition home or self-care (01) ==
LOC: ER 22:51
DX: M54.5 Low back pain (principal); I10 Essential (primary) hypertension; F31.9 Bipolar disorder, unspecified; F32.9 Major depressive disorder, single episode, unspecified; F41.9 Anxiety disorder, unspecified; E78.5 Hyperlipidemia, unspecified; Z88.1 Allergy status to other antibiotic agents
CPT/HCPCS: 93005; 85025; 80048; 36415; 82962; 80076; 83690; 76377; 74176; 96360; 99285; J7030

== ENCOUNTER 2019-05-15 19:17 | Emergency (ER) | payer OTHER ==
--- OUTSIDE RECORDS SUMMARY | 2019-05-15 19:20 | XMS REPORT ---
:1960 [facility] Address [address] [place] [address] Dr. Rios [address] [place] [address] Care Team Providers Name Role Phone Unavailable Unavailable Unavailable Problems This patient has no known problems. Allergies, Adverse Reactions, Alerts This patient has no known allergies or adverse reactions. Medications This patient has no known medications.
--- OUTSIDE RECORDS SUMMARY | 2019-05-15 19:20 | XMS REPORT | Summary of Care ---
:1960 Author Organization [facility] Address [address] [place] [id number] Care Team Providers Name Role Phone Billie Grace Primary Care Provider Reason for Visit Reason Comments Refill Request Encounter Details Date Type Department Care Team Description 04/25/2019 Refill [facility] ADC Pulmonary Yaquelin Solis, BEATER TENDER Refill Request Clinic [facility] [address] [place] [address] [place] [address] Allergies Active Allergy Reactions Severity Noted Date Comments Amlodipine Swelling 01/27/2019 Amoxicillin-Pot Clavulanate Rash 07/30/2016 Ciprofloxacin Anaphylaxis 07/30/2016 Lisinopril Cough 10/27/2018 documented as of this encounter (statuses as of 05/05/2019) Medications Medication Sig Dispensed Refills Start Date End Date Status ALPRAZolam 0.5 mg Take 0.5 mg by 0 Active tablet mouth. chlorproMAZINE 100 mg Take 400 mg by 0 Active tablet mouth. citalopram 40 mg tablet Take 40 mg by 0 Active mouth. risperiDONE 3 mg tablet Take 3 mg by 0 Active mouth. traMADOL 50 mg tablet 0 10/16/2017 Active tamsulosin 0.4 mg 24 hr Take 1 capsule 30 capsule 5 01/17/2018 Active capsule by mouth daily. pantoprazole 40 mg EC Take 1 tablet by 60 tablet 11 02/06/2018 Active tablet mouth 2 (two) times daily. fluticasone (FLONASE) Use 2 Sprays in 16 g 11 02/06/2018 Active 50 mcg/actuation nasal each nostril spray daily. loratadine 10 mg tablet Take 1 tablet by 30 tablet 11 02/06/2018 Active mouth daily. budesonide-formoterol Inhale 2 Puffs 2 3 Inhaler 3 08/01/2018 Active (SYMBICORT) 160-4.5 (two) times mcg/actuation inhaler daily. codeine-guaifenesin Take 5 mL by 473 mL 0 09/01/2018 Active 10-100 mg/5 mL solution mouth every 6 (six) hours as needed for Cough. triamterene-hydrochloro Take 1 capsule 90 capsule 1 11/27/2018 Active thiazide 37.5-25 mg per by mouth every capsuleIndications: morning. Essential hypertension albuterol 90 Inhale 2 Puffs 8.5 g 11 12/26/2018 Active mcg/actuation inhaler every 4 (four) hours as needed for Wheezing or Shortness of Breath. levalbuterol 45 Inhale 1-2 Puffs 15 g 11 12/26/2018 Active mcg/actuation inhaler every 4 (four) hours as needed for Wheezing. phenazopyridine Take 1 tablet by 15 tablet 0 01/11/2019 Active (PYRIDIUM) 200 mg mouth 3 (three) tabletIndications: times daily as Urinary tract infection needed for Pain. without hematuria, site unspecified proMETHazine 25 mg Take 1 tablet by 12 tablet 0 01/11/2019 Active tabletIndications: mouth every 6 Dysuria, (six) hours as Pyelonephritis, Urinary needed for tract infection without Nausea and hematuria, site Vomiting (N/V). unspecified, Non-intractable vomiting with nausea, unspecified vomiting type tamsulosin 0.4 mg 24 hr Take 1 capsule 90 capsule 3 01/14/2019 Active capsule by mouth daily. Nitrofurantoin&Nit. Take 1 capsule 14 capsule 0 01/18/2019 Active Macrocryst (MACROBID) by mouth 2 (two) 100 mg times daily. capsuleIndications: Acute midline low back pain without sciatica, Acute cystitis without hematuria, Primary osteoarthritis, unspecified site acetaminophen-codeine Take 1 tablet by 20 tablet 0 01/18/2019 Active (TYLENOL-CODEINE #3) mouth every 4 300-30 mg (four) hours as tabletIndications: needed for Pain Acute midline low back (scale 7-10). pain without sciatica, Acute cystitis without hematuria, Primary osteoarthritis, unspecified site sildenafil (VIAGRA) 100 Take 1 tablet by 14 tablet 0 02/03/2019 Active mg tablet mouth as needed (prior to intercourse). carvedilol 12.5 mg Take 1 tablet by 60 tablet 3 02/13/2019 Active tablet mouth 2 (two) times daily with meals. documented as of this encounter (statuses as of 05/05/2019) Active Problems Problem Noted Date Bilateral hand pain 02/13/2017 documented as of this encounter (statuses as of 05/05/2019) Social History Tobacco Use Types Packs/Day Years Used Date Never Smoker Smokeless Tobacco: Never Used Alcohol Use Drinks/Week oz/Week Comments No Sex Assigned at Date Recorded Not on file Job Start Date Occupation Industry Not on file Not on file Not on file Travel History Travel Start Travel End No recent travel history available. documented as of this encounter Last Filed Vital Signs Not on filedocumented in this encounter Plan of Treatment Date Type Specialty Care Team Description 07/02/2019 Office Visit Pulmonary Disease Alfonso Bloom, [address] [place] [address] 07/15/2019 Office Visit Urology Shreya Nieves FNP [address] [address] [phone] Health Maintenance Due Date Last Done Comments HEPATITIS C (HCV) SCREEN 1960 PNEUMOCOCCAL 0-64 YEARS COMBINED SERIES (1 of 1 - 1964 PPSV23) DTaP,Tdap,and Td Vaccines (1 - Tdap) 1977 COLONOSCOPY 2008 Zoster Recombinant Vaccine (SHINGRIX) (1 of 2) 2008 INFLUENZA VACCINE (#1) 2019 documented as of this encounter Results Not on filedocumented in this encounter Insurance Payer Benefit Plan / Subscriber ID Effective Dates Phone Address Type Group MEDICARE MEDICARE PART xxxxxxxxxxx 1995-Loc [phone] [id number] [place] [id number] documented as of this encounter
--- OUTSIDE RECORDS SUMMARY | 2019-05-15 19:20 | XMS REPORT | Clinical Summary ---
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
--- NOTE | 2019-05-15 20:49 | RAD REPORT ---
EXAM DESCRIPTION: Neelam Sanchez (2 Views)05/15/2019 8:43 pm CLINICAL HISTORY: Cough COMPARISON: August 2018 FINDINGS: The lungs appear clear of acute infiltrate. The heart is normal size IMPRESSION: No acute abnormalities displayed
--- NOTE | 2019-05-15 21:17 | ER ---
Nurse's Notes [facility] Name: Lucille King Age: 58 yrs Sex: Male : 1960 Arrival Date: 05/15/2019 Time: 19:20 Bed 16 Private MD: Diagnosis: Acute pharyngitis;Otitis media, unspecified, left ear;Cough Presentation: 05/15 19:30 Presenting complaint: Patient states: "I have sore throat, Im coughing, yellow green aj1 and grayish phlegm is coming. I have real bad headaches and Im dizzy" Reports shortness of breath. Denies chest pain. Transition of care: patient was not received from another setting of care. Onset of symptoms was April 2019. Risk Assessment: Do you want to hurt yourself or someone else? Patient reports no desire to harm self or others. Initial Sepsis Screen: Does the patient meet any 2 criteria? No. Patient's initial sepsis screen is negative. Does the patient have a suspected source of infection? No. Patient's initial sepsis screen is negative. Care prior to arrival: None. 19:30 Method Of Arrival: Ambulatory aj1 19:30 Acuity: DANISHA 4 aj1 Triage Assessment: 19:32 General: Appears in no apparent distress. comfortable, Behavior is calm, cooperative, aj1 appropriate for age. Pain: Complains of pain in back Pain currently is 8 out of 10 on a pain scale. EENT: Reports sore throat, cough. Neuro: Level of Consciousness is awake, alert, obeys commands. Cardiovascular: Patient's skin is warm and dry. Respiratory: Airway is patent Respiratory effort is even, unlabored, Respiratory pattern is regular, symmetrical. Historical: - Allergies: 19:32 Augmentin; aj1 19:32 Bactrim; aj1 19:32 Cipro; aj1 - Home Meds: 19:32 albuterol sulfate 90 mcg/actuation Inhl HFAA 2 puffs QID PRN [Active]; carvedilol 12.5 aj1 mg Oral tab 1 tab 2 times per day [Active]; Celexa 40 mg Oral tab 1 tab once daily [Active]; Risperdal 3 mg Oral tab 1 tab once daily [Active]; Symbicort 160-4.5 mcg/actuation inhalation HFAA 2 puffs 2 times per day [Active]; trazodone 300 mg Oral tab 1 tab nightly [Active]; Xanax 0.5 mg Oral tab 1 tab as needed [Active]; Zebeta 10 mg Oral tab 1 tab once daily [Active]; - PMHx: 19:32 Anxiety; Asthma; Bipolar disorder; born with 1 kidney; Depression; Hyperlipidemia; aj1 Hypertension; Panic Attacks; pulmonary embolis; renal insufficiency; - Immunization history:: Adult Immunizations up to date. - Social history:: Smoking status: Smoking status: Patient/guardian denies using tobacco. - Ebola Screening: : Patient denies travel to an Ebola-affected area in the 21 days before illness onset. Screenin:45 Abuse screen: Denies threats or abuse. Nutritional screening: No deficits noted. jb4 Tuberculosis screening: No symptoms or risk factors identified. Fall Risk None identified. Assessment: 19:45 General: Appears in no apparent distress. uncomfortable, Behavior is calm, cooperative, jb4 appropriate for age. Pain: Complains of pain in Generalized. Pain does not radiate. Pain currently is 6 out of 10 on a pain scale. Quality of pain is described as aching. Neuro: Level of Consciousness is awake, alert, obeys commands, Oriented to person, place, time, situation. Cardiovascular: Patient's skin is warm and dry. Respiratory: Airway is patent Respiratory effort is even, unlabored, Respiratory pattern is regular, symmetrical, Breath sounds are clear bilaterally. GI: Reports diarrhea. : No deficits noted. No signs and/or symptoms were reported regarding the genitourinary system. EENT: Throat is clear is reddened with gag reflex present. Derm: Skin is intact, Skin is dry, Skin is normal, Skin temperature is warm. Musculoskeletal: Circulation, motion, and sensation intact. Range of motion: intact in all extremities. 21:00 Reassessment: Patient appears in no apparent distress at this time. Patient and/or jb4 family updated on plan of care and expected duration. Pain level reassessed. Patient is alert, oriented x 3, equal unlabored respirations, skin warm/dry/pink. 21:38 Reassessment: Patient appears in no apparent distress at this time. Patient and/or jb4 family updated on plan of care and expected duration. Pain level reassessed. Patient is alert, oriented x 3, equal unlabored respirations, skin warm/dry/pink. Pt verbalized understanding of d/c and follow up instructions. Vital Signs: 19:32 BP 165 / 93; Pulse 72; Resp 18; Temp 97.8; Pulse Ox 97% on R/A; Weight 90.72 kg (R); aj1 Height 5 ft. 7 in. (170.18 cm) (R); Pain 8/10; 21:15 BP 159 / 81; Pulse 68; Resp 16; Pulse Ox 98% on R/A; jb4 19:32 Body Mass Index 31.32 (90.72 kg, 170.18 cm) [facility] ED Course: 19:20 Patient arrived in ED. cl3 19:31 Triage completed. 1 19:32 Arm band placed on Patient placed in an exam room. 1 19:36 Jaylen Camacho NP is PHCP. pm1 19:36 Joshua Merrill MD is Attending Physician. pm1 19:45 Patient has correct armband on for positive identification. Bed in low position. Call jb4 light in reach. Side rails up X 1. Pulse ox on. NIBP on. 20:40 X-ray completed. Patient tolerated procedure well. Patient moved back from radiology. 1 20:42 Chest Pa And Lat (2 Views) XRAY In Process Unspecified. EDMS 21:12 Rodolfo Cruz, RN is Primary Nurse. jb4 21:39 No provider procedures requiring assistance completed. Patient did not have IV access jb4 during this emergency room visit. Administered Medications: No medications were administered Outcome: 21:17 Discharge ordered by MD. pm1 21:39 Discharged to home ambulatory. jb4 21:39 Condition: stable 21:39 Discharge instructions given to patient, Instructed on discharge instructions, follow up and referral plans. medication usage, Demonstrated understanding of instructions, follow-up care, medications, Prescriptions given X 2. 21:39 Patient left the ED. jb4 Signatures: Dispatcher [employer] EDMS Concha Lee RN RN 1 Hetal Sow [facility] Jyalen Camacho NP SNOW REMOVAL/PLOWING pm1 Rodolfo Cruz, RN RN jb4 Summer Yanez cl3
--- NOTE | 2019-05-15 21:18 | EDPHYS ---
Physician Documentation [facility] Name: Lucille King Age: 58 yrs Sex: Male : 1960 Arrival Date: 05/15/2019 Time: 19:20 Bed 16 Private MD: ED Physician Joshua Merrill HPI: 05/15 20:00 This 58 yrs old Black Male presents to ER via Ambulatory with complaints of Sore pm1 Throat, Back Pain. 20:00 The patient presents with sore throat, left ear pain, cough. Onset: The pm1 symptoms/episode began/occurred 3 day(s) ago. Severity of symptoms: in the emergency department the symptoms are actually worse. Modifying factors: The symptoms are alleviated by nothing, the symptoms are aggravated by nothing, Patient's oral intake status: good. Associated signs and symptoms: Pertinent negatives diarrhea, fever, flu-like symptoms, shortness of breath, vomiting. The patient has experienced similar episodes in the past, a few times. The patient has not recently seen a physician. Historical: - Allergies: 19:32 Augmentin; aj1 19:32 Bactrim; aj1 19:32 Cipro; aj1 - Home Meds: 19:32 albuterol sulfate 90 mcg/actuation Inhl HFAA 2 puffs QID PRN [Active]; carvedilol 12.5 aj1 mg Oral tab 1 tab 2 times per day [Active]; Celexa 40 mg Oral tab 1 tab once daily [Active]; Risperdal 3 mg Oral tab 1 tab once daily [Active]; Symbicort 160-4.5 mcg/actuation inhalation HFAA 2 puffs 2 times per day [Active]; trazodone 300 mg Oral tab 1 tab nightly [Active]; Xanax 0.5 mg Oral tab 1 tab as needed [Active]; Zebeta 10 mg Oral tab 1 tab once daily [Active]; - PMHx: 19:32 Anxiety; Asthma; Bipolar disorder; born with 1 kidney; Depression; Hyperlipidemia; aj1 Hypertension; Panic Attacks; pulmonary embolis; renal insufficiency; - Immunization history:: Adult Immunizations up to date. - Social history:: Smoking status: Smoking status: Patient/guardian denies using tobacco. - Ebola Screening: : Patient denies travel to an Ebola-affected area in the 21 days before illness onset. ROS: 20:00 Constitutional: Negative for fever, chills, and weight loss, Eyes: Negative for injury, pm1 pain, redness, and discharge, Neck: Negative for injury, pain, and swelling, Cardiovascular: Negative for chest pain, palpitations, and edema, Abdomen/GI: Negative for abdominal pain, nausea, vomiting, diarrhea, and constipation, Back: Negative for injury and pain, MS/Extremity: Negative for injury and deformity, Skin: Negative for injury, rash, and discoloration. 20:00 Neuro: Negative for headache, weakness, numbness, tingling, and seizure. 20:00 ENT: Positive for ear pain, sore throat, Negative for difficulty swallowing, difficulty handling secretions, hoarseness. 20:00 Respiratory: Positive for cough, Negative for shortness of breath, wheezing. Exam: 20:00 Constitutional: This is a well developed, well nourished patient who is awake, alert, pm1 and in no acute distress. Head/Face: Normocephalic, atraumatic. Eyes: Pupils equal round and reactive to light, extra-ocular motions intact. Lids and lashes normal. Conjunctiva and sclera are non-icteric and not injected. Cornea within normal limits. Periorbital areas with no swelling, redness, or edema. 20:00 Neck: Trachea midline, no thyromegaly or masses palpated, and no cervical lymphadenopathy. Supple, full range of motion without nuchal rigidity, or vertebral point tenderness. No Meningismus. Chest/axilla: Normal chest wall appearance and motion. Nontender with no deformity. No lesions are appreciated. Cardiovascular: Regular rate and rhythm with a normal S1 and S2. No gallops, murmurs, or rubs. Normal PMI, no JVD. No pulse deficits. Respiratory: Lungs have equal breath sounds bilaterally, clear to auscultation and percussion. No rales, rhonchi or wheezes noted. No increased work of breathing, no retractions or nasal flaring. Abdomen/GI: Soft, non-tender, with normal bowel sounds. No distension or tympany. No guarding or rebound. No evidence of tenderness throughout. Back: No spinal tenderness. No costovertebral tenderness. Full range of motion. Skin: Warm, dry with normal turgor. Normal color with no rashes, no lesions, and no evidence of cellulitis. MS/ Extremity: Pulses equal, no cyanosis. Neurovascular intact. Full, normal range of motion. 20:00 ENT: External ear(s): are unremarkable, Ear canal(s): are normal, TM's: bulging, on the left, erythema, that is mild, on the left, Examination of the other ear shows no obvious abnormality, Posterior pharynx: is normal, airway is patent, peritonsillar mass, is not appreciated, pooling of secretions, is not appreciated. 20:00 Neuro: Orientation: is normal, Motor: is normal, moves all fours. Vital Signs: 19:32 BP 165 / 93; Pulse 72; Resp 18; Temp 97.8; Pulse Ox 97% on R/A; Weight 90.72 kg (R); aj1 Height 5 ft. 7 in. (170.18 cm) (R); Pain 8/10; 21:15 BP 159 / 81; Pulse 68; Resp 16; Pulse Ox 98% on R/A; jb4 19:32 Body Mass Index 31.32 (90.72 kg, 170.18 cm) aj1 MDM: 19:36 Patient medically screened. pm1 21:16 Data reviewed: vital signs. Data interpreted: Pulse oximetry: on room air is 97 %. pm1 Interpretation: normal. Counseling: I had a detailed discussion with the patient and/or guardian regarding: the historical points, exam findings, and any diagnostic results supporting the discharge/admit diagnosis, lab results, radiology results, the need for outpatient follow up, to return to the emergency department if symptoms worsen or persist or if there are any questions or concerns that arise at home. 05/15 19:59 Order name: Strep; Complete Time: 20:58 pm1 05/15 19:59 Order name: Flu; Complete Time: 20:58 pm1 05/15 19:59 Order name: Chest Pa And Lat (2 Views) XRAY; Complete Time: 20:58 pm1 05/15 20:47 Order name: Throat Culture EDMS Administered Medications: No medications were administered Disposition: 05/15/19 21:17 Discharged to Home. Impression: Otitis media, unspecified, left ear, Acute pharyngitis, Cough. - Condition is Stable. - Discharge Instructions: Otitis Media, Adult, Pharyngitis, Cough, Adult. - Prescriptions for Zithromax Z- Tanner 250 mg Oral Tablet - take 1 tablet by ORAL route as directed for 5 days Day 1 - take two (2) tablets one time. Day 2, 3, 4 , 5 take one (1) tablet once daily.; 6 tablet. Guaifenesin AC 10- 100 mg/5 mL Oral Liquid - take 10 milliliter by ORAL route every 4 hours As needed; 240 milliliter. - Medication Reconciliation Form, Thank You Letter, Antibiotic Education, Prescription Opioid Use form. - Follow up: Emergency Department; When: As needed; Reason: Worsening of condition. Follow up: Private Physician; When: 2 - 3 days; Reason: Recheck today's complaints, Continuance of care, Re-evaluation by your physician. - Problem is new. - Symptoms have improved. Addendum: 05/18/2019 09:17 Co-signature as Attending Physician, Joshua Merrill MD I agree with the assessment and c medina plan of care. Signatures: Dispatcher [employer] EDConcha Mullins, RN RN aj1 Joshua Merrill MD MD cha Marinas, Patrick, TAX ACCOUNTING ASSISTANT TAX ACCOUNTING ASSISTANT pm1 Rodolfo Cruz, KEELEY RN jb4 Corrections: (The following items were deleted from the chart) 05/15 21:17 21:17 05/15/2019 21:17 Discharged to Home. Impression: Acute pharyngitis; Otitis media, pm1 unspecified, left ear; Cough. Condition is Stable. Forms are Medication Reconciliation Form, Thank You Letter, Antibiotic Education, Prescription Opioid Use. Follow up: Emergency Department; When: As needed; Reason: Worsening of condition. Follow up: Private Physician; When: 2 - 3 days; Reason: Recheck today's complaints, Continuance of care, Re-evaluation by your physician. Problem is new. Symptoms have improved. pm1 21:39 21:17 05/15/2019 21:17 Discharged to Home. Impression: Otitis media, unspecified, left jb4 earAcute pharyngitis; Cough. Condition is Stable. Forms are Medication Reconciliation Form, Thank You Letter, Antibiotic Education, Prescription Opioid Use. Follow up: Emergency Department; When: As needed; Reason: Worsening of condition. Follow up: Private Physician; When: 2 - 3 days; Reason: Recheck today's complaints, Continuance of care, Re-evaluation by your physician. Problem is new. Symptoms have improved. pm1
[2019-05-15 22:22] VITALS: TEMP 97.8
[2019-05-15 22:23] VITALS: BP 159/81; O2SAT 98
== END 2019-05-15 21:39 | disposition home or self-care (01) ==
LOC: ER 19:17
DX: H66.92 Otitis media, unspecified, left ear (principal); R05 Cough; J02.9 Acute pharyngitis, unspecified; I10 Essential (primary) hypertension; F32.9 Major depressive disorder, single episode, unspecified; F31.9 Bipolar disorder, unspecified; J45.909 Unspecified asthma, uncomplicated; E78.5 Hyperlipidemia, unspecified; Z88.1 Allergy status to other antibiotic agents
CPT/HCPCS: 71046; 87070; 87081; 87804; 99283

== ENCOUNTER 2019-07-08 20:58 | Emergency (ER) | payer OTHER ==
--- OUTSIDE RECORDS SUMMARY | 2019-07-08 21:01 | XMS REPORT ---
:1960 [facility] Address [address] [place] [address] Dr. Rios [address] [place] [id number] Care Team Providers Name Role Phone Unavailable Unavailable Unavailable Problems This patient has no known problems. Allergies, Adverse Reactions, Alerts This patient has no known allergies or adverse reactions. Medications This patient has no known medications.
--- NOTE | 2019-07-08 23:46 | ER ---
Nurse's Notes [facility] Name: Lucille King Age: 59 yrs Sex: Male : 1960 Arrival Date: 07/08/2019 Time: 21:00 Bed 6 Private MD: Diagnosis: Conjunctivitis Presentation: 07/08 21:03 Presenting complaint: Patient states: "I'm having eye pain especially the left eye" aj1 Reports that his pain started one day ago. Denies any changes in vision. Transition of care: patient was not received from another setting of care. Mechanism of Injury: No Mechanism of Injury. The patient denies any loss of vision. Onset of symptoms was July 07, 2019. Risk Assessment: Do you want to hurt yourself or someone else? Patient reports no desire to harm self or others. Initial Sepsis Screen: Does the patient meet any 2 criteria? No. Patient's initial sepsis screen is negative. Does the patient have a suspected source of infection? No. Patient's initial sepsis screen is negative. Care prior to arrival: None. 21:03 Method Of Arrival: Ambulatory aj 21:03 Acuity: DANISHA 4 aj1 Triage Assessment: 21:05 General: Appears in no apparent distress. comfortable, Behavior is calm, cooperative, aj1 appropriate for age. Pain: Complains of pain in left eye Pain currently is 7 out of 10 on a pain scale. EENT: Reports eye pain. Neuro: Level of Consciousness is awake, alert, obeys commands. Cardiovascular: Patient's skin is warm and dry. Respiratory: Airway is patent Respiratory effort is even, unlabored, Respiratory pattern is regular, symmetrical. Historical: - Allergies: 21:05 Bactrim; aj1 21:05 Augmentin; aj1 21:05 Cipro; aj1 - Home Meds: 21:05 albuterol sulfate 90 mcg/actuation Inhl HFAA 2 puffs QID PRN [Active]; carvedilol 12.5 aj1 mg Oral tab 1 tab 2 times per day [Active]; Celexa 40 mg Oral tab 1 tab once daily [Active]; Risperdal 3 mg Oral tab 1 tab once daily [Active]; Symbicort 160-4.5 mcg/actuation inhalation HFAA 2 puffs 2 times per day [Active]; trazodone 300 mg Oral tab 1 tab nightly [Active]; Xanax 0.5 mg Oral tab 1 tab as needed [Active]; Zebeta 10 mg Oral tab 1 tab once daily [Active]; - PMHx: 21:05 Anxiety; Asthma; Bipolar disorder; born with 1 kidney; Depression; Hyperlipidemia; aj1 Hypertension; Panic Attacks; pulmonary embolis; renal insufficiency; - Immunization history:: Flu vaccine is not up to date. - Social history:: Smoking status: Patient/guardian denies using tobacco. - Ebola Screening: : Patient denies travel to an Ebola-affected area in the 21 days before illness onset. - Family history:: not pertinent. Screenin:12 Abuse screen: Denies threats or abuse. Nutritional screening: No deficits noted. jd3 Tuberculosis screening: No symptoms or risk factors identified. Fall Risk Ambulatory Aid- None/Bed Rest/Nurse Assist (0 pts). Gait- Normal/Bed Rest/Wheelchair (0 pts) Mental Status- Oriented to own ability (0 pts). Total Rios Fall Scale indicates No Risk (0-24 pts). Assessment: 23:10 General: Appears in no apparent distress. uncomfortable, Behavior is calm, cooperative, jd3 appropriate for age. Pain: Complains of pain in left eye Quality of pain is described as dull, pressure. Neuro: Level of Consciousness is awake, alert, obeys commands, Oriented to person, place, time, situation, Pupils are PERRLA. Cardiovascular: Denies chest pain, Capillary refill < 3 seconds Patient's skin is warm and dry. Respiratory: Airway is patent Respiratory effort is even, unlabored, Respiratory pattern is regular, symmetrical, Denies cough, shortness of breath. GI: No signs and/or symptoms were reported involving the gastrointestinal system. Patient currently denies diarrhea, nausea, vomiting. : No signs and/or symptoms were reported regarding the genitourinary system. EENT: Eyes swelling noted around left eye.. Sclera/Cornea are clear in right eye and left eye. Derm: Skin is intact, Skin is dry, Skin is normal, Skin temperature is warm. Musculoskeletal: Circulation, motion, and sensation intact. Range of motion: intact in all extremities. 07/09 00:05 Reassessment: Patient appears in no apparent distress at this time. No changes from jd3 previously documented assessment. Patient and/or family updated on plan of care and expected duration. Pain level reassessed. Patient is alert, oriented x 3, equal unlabored respirations, skin warm/dry/pink. reported understanding of discharge instructions. even and steady gait upon discharge. Vital Signs: 07/08 21:05 BP 171 / 97; Pulse 64; Resp 18; Temp 98.2; Pulse Ox 100% on R/A; Weight 86.18 kg (R); aj1 Height 5 ft. 7 in. (170.18 cm) (R); Pain 7/10; 21:05 Body Mass Index 29.76 (86.18 kg, 170.18 cm) [facility] Visual Acuity: 23:12 Left Eye Visual acuity 20/20, Pupil size 3 mm, Normal, React To Light, Reactive To jd3 Accomodation; Right Eye Visual acuity 20/20, Pupil size 3 mm, Normal, React To Light, Reactive To Accomodation; Both Eyes Visual acuity 20/20; With Lenses; ED Course: 21:00 Patient arrived in ED. cf2 21:04 Triage completed. aj1 21:05 Arm band placed on Patient placed in waiting room. aj1 22:34 Joshua Merrill MD is Attending Physician. [facility] 23:10 Israel Hinson RN is Primary Nurse. jd3 23:12 Patient has correct armband on for positive identification. Bed in low position. Call jd3 light in reach. Side rails up X 1. 23:45 Madyson Arreaga MD is Referral Physician. [facility] 07/09 00:04 No provider procedures requiring assistance completed. Patient did not have IV access jd3 during this emergency room visit. Administered Medications: 00:01 Drug: Tobramycin Ointment (0.3 %) 1 application Route: Ophthalmic; Site: left eye; jd3 00:06 Follow up: Response: Medication administered at discharge. jd3 Outcome: 07/08 23:46 Discharge ordered by . [facility] 07/09 00:04 Discharged to home ambulatory. jd3 Condition: stable Discharge instructions given to patient, Instructed on discharge instructions, follow up and referral plans. medication usage, Demonstrated understanding of instructions, follow-up care, medications, Prescriptions given X 2. 00:06 Patient left the ED. jd3 Signatures: Concha Lee RN RN ajJoshua Gant MD MD cha Davies, Jonathon, RN RN jd3 Bailey Haddad cf2
--- NOTE | 2019-07-08 23:47 | EDPHYS ---
Physician Documentation [facility] Name: Lucille King Age: 59 yrs Sex: Male : 1960 Arrival Date: 07/08/2019 Time: 21:00 Bed 6 Private MD: ED Physician Joshua Merrill HPI: 07/08 23:40 This 59 yrs old Black Male presents to ER via Ambulatory with complaints of BODY PAIN, geri Eye Problem, Eye Pain. 23:40 The patient is experiencing pain, LEFT UPPER LID SWELLING. Onset: The symptoms/episode geri began/occurred 2 day(s) ago. Duration: the symptoms are continuous, are chronic. Aggravated by nothing. Alleviated by nothing. Associated signs and symptoms: Pertinent positives: None. Pertinent negatives: None. Patient wears glasses. Severity of symptoms: At their worst the symptoms were mild in the emergency department the symptoms are unchanged. The patient has not experienced similar symptoms in the past. Historical: - Allergies: 21:05 Bactrim; aj1 21:05 Augmentin; aj1 21:05 Cipro; aj1 - Home Meds: 21:05 albuterol sulfate 90 mcg/actuation Inhl HFAA 2 puffs QID PRN [Active]; carvedilol 12.5 aj1 mg Oral tab 1 tab 2 times per day [Active]; Celexa 40 mg Oral tab 1 tab once daily [Active]; Risperdal 3 mg Oral tab 1 tab once daily [Active]; Symbicort 160-4.5 mcg/actuation inhalation HFAA 2 puffs 2 times per day [Active]; trazodone 300 mg Oral tab 1 tab nightly [Active]; Xanax 0.5 mg Oral tab 1 tab as needed [Active]; Zebeta 10 mg Oral tab 1 tab once daily [Active]; - PMHx: 21:05 Anxiety; Asthma; Bipolar disorder; born with 1 kidney; Depression; Hyperlipidemia; aj1 Hypertension; Panic Attacks; pulmonary embolis; renal insufficiency; - Immunization history:: Flu vaccine is not up to date. - Social history:: Smoking status: Patient/guardian denies using tobacco. - Ebola Screening: : Patient denies travel to an Ebola-affected area in the 21 days before illness onset. - Family history:: not pertinent. ROS: 23:40 Constitutional: Negative for fever, chills, and weight loss, ENT: Negative for injury, geri pain, and discharge, Neck: Negative for injury, pain, and swelling, Cardiovascular: Negative for chest pain, palpitations, and edema, Respiratory: Negative for shortness of breath, cough, wheezing, and pleuritic chest pain, Abdomen/GI: Negative for abdominal pain, nausea, vomiting, diarrhea, and constipation, Back: Negative for injury and pain, : Negative for injury, bleeding, discharge, and swelling, MS/Extremity: Negative for injury and deformity, Skin: Negative for injury, rash, and discoloration, Neuro: Negative for headache, weakness, numbness, tingling, and seizure, Psych: Negative for depression, anxiety, suicide ideation, homicidal ideation, and hallucinations, Allergy/Immunology: Negative for hives, rash, and allergies, Endocrine: Negative for neck swelling, polydipsia, polyuria, polyphagia, and marked weight changes, Hematologic/Lymphatic: Negative for swollen nodes, abnormal bleeding, and unusual bruising. 23:40 Eyes: Positive for pain, redness, swelling, of the left eye. Exam: 23:40 Constitutional: This is a well developed, well nourished patient who is awake, alert, geri and in no acute distress. Head/Face: Normocephalic, atraumatic. ENT: Nares patent. No nasal discharge, no septal abnormalities noted. Tympanic membranes are normal and external auditory canals are clear. Oropharynx with no redness, swelling, or masses, exudates, or evidence of obstruction, uvula midline. Mucous membranes moist. Neck: Trachea midline, no thyromegaly or masses palpated, and no cervical lymphadenopathy. Supple, full range of motion without nuchal rigidity, or vertebral point tenderness. No Meningismus. Chest/axilla: Normal chest wall appearance and motion. Nontender with no deformity. No lesions are appreciated. Cardiovascular: Regular rate and rhythm with a normal S1 and S2. No gallops, murmurs, or rubs. Normal PMI, no JVD. No pulse deficits. Respiratory: Lungs have equal breath sounds bilaterally, clear to auscultation and percussion. No rales, rhonchi or wheezes noted. No increased work of breathing, no retractions or nasal flaring. Abdomen/GI: Soft, non-tender, with normal bowel sounds. No distension or tympany. No guarding or rebound. No evidence of tenderness throughout. Back: No spinal tenderness. No costovertebral tenderness. Full range of motion. Male : Normal genitalia with no discharge or lesions. Skin: Warm, dry with normal turgor. Normal color with no rashes, no lesions, and no evidence of cellulitis. MS/ Extremity: Pulses equal, no cyanosis. Neurovascular intact. Full, normal range of motion. Neuro: Awake and alert, GCS 15, oriented to person, place, time, and situation. Cranial nerves II-XII grossly intact. Motor strength 5/5 in all extremities. Sensory grossly intact. Cerebellar exam normal. Normal gait. Psych: Awake, alert, with orientation to person, place and time. Behavior, mood, and affect are within normal limits. 23:40 Eyes: Periorbital structures: erythema, swelling, that is mild, on the left supraorbital ridge and left upper eyelid, Pupils: no acute changes, equal, round, and reactive to light and accomodation, Extraocular movements: intact throughout, Conjunctiva: injected, in the left eye, Corneas: are normal, no acute changes, Sclera: INJECTED, Anterior chamber: normal, no acute changes, Lids and lashes: edema, of the left eye, funduscopic exam reveals no acute changes, Nystagmus: is not appreciated, no acute changes. Vital Signs: 21:05 BP 171 / 97; Pulse 64; Resp 18; Temp 98.2; Pulse Ox 100% on R/A; Weight 86.18 kg (R); aj1 Height 5 ft. 7 in. (170.18 cm) (R); Pain 7/10; 21:05 Body Mass Index 29.76 (86.18 kg, 170.18 cm) aj1 Visual Acuity: 23:12 Left Eye Visual acuity 20/20, Pupil size 3 mm, Normal, React To Light, Reactive To jd3 Accomodation; Right Eye Visual acuity 20/20, Pupil size 3 mm, Normal, React To Light, Reactive To Accomodation; Both Eyes Visual acuity 20/20; With Lenses; MDM: 22:34 Patient medically screened. [facility] 23:44 Data reviewed: vital signs, nurses notes. [facility] Administered Medications: 07/09 00:01 Drug: Tobramycin Ointment (0.3 %) 1 application Route: Ophthalmic; Site: left eye; jd3 00:06 Follow up: Response: Medication administered at discharge. jd3 Disposition: 07/08/19 23:46 Discharged to Home. Impression: Conjunctivitis. - Condition is Stable. - Prescriptions for Tobrex 0.3 % Ophthalmic ointment - apply 1 inch ribbon by OPHTHALMIC route 4 times per day; 3.5 gram. Claritin 10 mg Oral Tablet - take 1 tablet by ORAL route once daily As needed; 30 tablet. - Medication Reconciliation Form, Thank You Letter, Antibiotic Education, Prescription Opioid Use form. - Follow up: Private Physician; When: 2 - 3 days; Reason: Recheck today's complaints, Continuance of care, Re-evaluation by your physician. Follow up: Madyson Arreaga MD; When: 2 - 3 days; Reason: Recheck today's complaints, Re-evaluation by your physician. - Problem is new. - Symptoms have improved. Signatures: Concha Lee RN RN aj1 Joshua Merrill MD MD cha Davies, Jonathon, RN RN jd3 Corrections: (The following items were deleted from the chart) 00:06 07/08 23:46 07/08/2019 23:46 Discharged to Home. Impression: Conjunctivitis. Condition jd3 is Stable. Forms are Medication Reconciliation Form, Thank You Letter, Antibiotic Education, Prescription Opioid Use. Follow up: Private Physician; When: 2 - 3 days; Reason: Recheck today's complaints, Continuance of care, Re-evaluation by your physician. Follow up: Madyson Arreaga; When: 2 - 3 days; Reason: Recheck today's complaints, Re-evaluation by your physician. Problem is new. Symptoms have improved. geri
[2019-07-08] MEDS ORDERED: TOBRAMYCIN SULF 0.3% OPTH OINT ONE (23:48)
[2019-07-09 09:34] VITALS: BP 171/97; TEMP 98.2; O2SAT 100
== END 2019-07-09 00:06 | disposition home or self-care (01) ==
LOC: ER 20:58
DX: H10.9 Unspecified conjunctivitis (principal); I10 Essential (primary) hypertension; F41.9 Anxiety disorder, unspecified; F32.9 Major depressive disorder, single episode, unspecified; E78.5 Hyperlipidemia, unspecified; Z88.1 Allergy status to other antibiotic agents
CPT/HCPCS: 99283

== ENCOUNTER 2021-12-13 21:55 | Emergency (ER) | payer MEDICARE, OTHER ==
--- OUTSIDE RECORDS SUMMARY | 2021-12-13 21:59 | XMS REPORT | Continuity of Care Document ---
:1960 Author Organization [facility] t Address [address] [place] [address] Care Team Providers Name Role Phone SHEREENRiki Primary Care Physician Unavailable Vaccine, Family Medicine Attending Clinician Unavailable Skyler Renee DO Attending Clinician SKYLER RENEE Attending Clinician Unavailable Genevieve DAVISON Attending Clinician ELINA CHIN Attending Clinician Unavailable Jemal DAVISON Attending Clinician Gramm REBECA, Rei Attending Clinician 2, Lab Attending Clinician Unavailable Merle LIND Attending Clinician ELINA CHIN Admitting Clinician Unavailable Payers Payer Name Policy Type Policy Number Effective Date Expiration Date S ource Problems Condition Condition Condition Status Onset Resolution Last Treating Co mments Source Name Details Category Date Date Treatment Clinician Date Abnormal Abnormal Disease Active Unive rs EKG EKG 3-10 ity of 00:00: [address] KAEL on KAEL on Disease Active Univers CPAP CPAP 3-10 ity of 00:00: [address] Essential Essential Disease Active Uni vers hypertensi hypertensi 9-11 it y of on on 00:00: [place] 00 [facility] Branch Dyslipidem Dyslipidem Disease Active U nivers ia ia 9-11 ity of 00:00: [place] 00 Medical Branch Chest Chest Disease Active Univers pain, rule pain, rule 9-10 it y of out acute out acute 00:00[place] myocardial myocardial 00 Me dical infarction infarction Br anch Obesity Obesity Disease Active Univers (BMI (BMI 9-10 ity of 30-39.9) 30-39.9) 00:00: Medical Branch Bilateral Bilateral Disease Active Uni vers hand pain hand pain 6-21 ity of 00:00: [place] 00 Medical Branch Allergies, Adverse Reactions, Alerts Allergy Allergy Status Severity Reaction(s) Onset Inactive Treating Comm ents Source Name Type Date Date Clinician Bacitrac Propensi Active Unknown - Uni vers in ty to See comments 3-10 ity of adverse 00:00: [place] reaction 00 Medical s Branch BACITRAC DRUG Active Unknown-Cmnt Un jimena IN INGREDI 3-10 ity of 00:00: [place] [facility] Clindamy Propensi Active Other - See 2019-08 Passed U nivers amy ty to comments 0-06 out ity of adverse 00:00: [place] reaction 00 Medical s Branch Methylpr Propensi Active Unknown - 2019-08 Pt stated Univers ednisolo ty to See comments 0-06 that this ity of ne adverse 00:00: made him [place] reaction 00 sick Medical s Branch CLINDAMY DRUG Active Other-Cmnt 2019-08 Univ ers AMY INGREDI 0-06 ity of 00:00: Medical Branch METHYLPR DRUG Active Unknown-Cmnt 2019-08 Un jimena EDFLORENTINOLO INGREDI 0-06 ity of NE 00:00: [place] 00 Medical Branch Trimetho Propensi Active Swelling Bactrim Uni vers prim ty to 8-05 ity of adverse 00:00: [place] reaction 00 Medical s Branch TRIMETHO DRUG Active Swelling Univer s PRIM INGREDI 8-05 ity of 00:00: [place] 00 Medical Branch Amlodipi Propensi Active Swelling Univ ers ne ty to 6-04 ity of adverse 00:00: [place] reaction 00 Medical s Branch AMLODIPI DRUG Active Swelling Univer s NE INGREDI 6-04 ity of 00:00: [place] 00 Medical Branch Lisinopr Propensi Active Cough 2018- Other Univer s il ty to 3-04 reaction( ity of adverse 00:00: s): Other [place] reaction 00 (see Medical s comments) Branch LISINOPR DRUG Active COUGH 2018- Univers IL INGREDI 3-04 ity of 00:00: [place] 00 Medical Branch Amoxicil Drug Active Rash 2015-08 Other Univers [place]-Pot Allergy 2-05 reaction( ity o f Clavulan 00:00: s): Other [place] ate 00 (see Medical comments) Branch Ciproflo Drug Active Anaphylaxis 2015-08 Other Uni vers xacin Allergy 2-05 reaction( ity of 00:00: s): Other [place] 00 (see Medical comments) Branch CIPROFLO DRUG Active High Anaphylaxis 2015-08 Uni vers XACIN INGREDI 2-05 ity of 00:00: [place] 00 Medical Branch AMOXICIL DRUG Active Low Rash 2015- Univers [place]-POT 2-05 ity of CLAVULAN 00:00: [place] ATE 00 Medical Branch Social History Social Habit Start Date Stop Date Quantity Comments Source Exposure to Not sure [facility] SARS-CoV-2 [place] [facility] (event) Branch Alcohol intake 2021-11-23 2021-11-23 Current [place] of 00:00:00 00:00:00 non-drinker of [facility] alcohol [place] (finding) Tobacco use and 2017-02-13 2017-02-13 Never used Universit y of exposure 00:00:00 00:00:00 [facility] Sex Ass[birth year] At [birth year] Universit y of 00:00:00 00:00:00 [facility] Smoking Status Start Date Stop Date Source Never smoker [facility] Branch Medications Ordered Filled Start Stop Current Ordering Indication Dosage Frequency Signature Comments Components Source Medication Medication Date Date Medication? Clinician (SIG) Name Name ondansetron Yes [id number] 4mg Take 1 Univers 4 mg 3-29 tablet by ity of disintegrat 00:00: mouth [place] ing tablet 00 every 8 Medica l (eight) Branch hours as needed for Nausea and Vomiting (N/V). meclizine Yes [id number] 25mg Take 1 U nivers 25 mg 3-29 tablet by ity of tablet 00:00: mouth [place] 00 every 6 Medical (six) Branch hours as needed for Dizziness. ondansetron 0 Yes [id number] 4mg Take 1 Univers 4 mg 3-29 tablet by ity of disintegrat 00:00: mouth [place] ing tablet 00 every 8 Medica l (eight) Branch hours as needed for Nausea and Vomiting (N/V). meclizine 0 Yes [id number] 25mg Take 1 U nivers 25 mg 3-29 tablet by ity of tablet 00:00: mouth [place] 00 every 6 Medical (six) Branch hours as needed for Dizziness. ALPRAZolam Yes .5mg Take 0.5 Uni vers 0.5 mg 3-09 mg by ity of tablet 11:43: mouth. [address] citalopram Yes 40mg Take 40 mg U nivers 40 mg 3-09 by mouth. ity of tablet 11:43: [address] risperiDONE 0 Yes 3mg Take 3 mg U nivers 3 mg tablet 3-09 by mouth. ity of 11:43: [address] ALPRAZolam 0 Yes .5mg Take 0.5 Uni vers 0.5 mg 3-09 mg by ity of tablet 11:43: mouth. [address] citalopram 0 Yes 40mg Take 40 mg U nivers 40 mg 3-09 by mouth. ity of tablet 11:43: [address] risperiDONE 2021-0 Yes 3mg Take 3 mg U nivers 3 mg tablet 3-09 by mouth. ity of 11:43: [address] carvediloL 0 Yes [id number] 25mg Take 1 U nivers 25 mg 3-09 tablet by ity of tablet 00:00: mouth 2 [place] 00 (two) Medical times Branch daily with meals. carvediloL 0 Yes [id number] 25mg Take 1 U nivers 25 mg 3-09 tablet by ity of tablet 00:00: mouth 2 [place] 00 (two) Medical times Branch daily with meals. albuterol Yes 2{puff} Inhale 2 U nivers 90 3-07 Puffs ity of mcg/actuati 00:00: every 4 [place] on inhaler 00 (four) Medical hours as Branch needed for Wheezing or Shortness of Breath. albuterol Yes 2{puff} Inhale 2 U nivers 90 3-07 Puffs ity of mcg/actuati 00:00: every 4 [place] on inhaler 00 (four) Medical hours as Branch needed for Wheezing or Shortness of Breath. TRELEGY Yes [id number] Inhale 1 Un jimena ELLIPTA 2-17 puff by ity of 100-62.5-25 00:00: mouth once [place] mcg DsDv 00 daily Medical Branch triamterene Yes [id number] 1{capsu Take 1 Univers -hydrochlor 2-17 le} capsule by it y of othiazide 00:00: mouth [place] 37.5-25 mg 00 every Medical per capsule morning. Bran sildenafiL Yes [id number] 100mg Take 1 Univers (VIAGRA) 2-17 tablet by ity of 100 mg 00:00: mouth [place] tablet 00 SEE-INSTRU Medical CTIONS. 1 Branch PO PRN, not more than once daily TRELEGY Yes [id number] Inhale 1 Un jimena ELLIPTA 2-17 puff by ity of 100-62.5-25 00:00: mouth once [place] mcg DsDv 00 daily Medical Branch triamterene Yes [id number] 1{capsu Take 1 Univers -hydrochlor 2-17 le} capsule by it y of othiazide 00:00: mouth [place] 37.5-25 mg 00 every Medical per capsule morning. Bran sildenafiL Yes [id number] 100mg Take 1 Univers (VIAGRA) 2-17 tablet by ity of 100 mg 00:00: mouth [place] tablet 00 SEE-INSTRU Medical CTIONS. 1 Branch PO PRN, not more than once daily MONTELUKAST Yes [id number] Take 1 Univers 10 mg 1-25 tablet by ity of tablet 00:00: mouth once [place] 00 daily Medical Branch MONTELUKAST Yes [id number] Take 1 Univers 10 mg 1-25 tablet by ity of tablet 00:00: mouth once [place] 00 daily Medical Branch losartan 2020-08 Yes [id number] 100mg Take 1 Un jimena 100 mg 2-13 tablet by ity of tablet 00:00: mouth [place] 00 daily. Medical Branch losartan 2020-08 Yes [id number] 100mg Take 1 Un jimena 100 mg 2-13 tablet by ity of tablet 00:00: mouth [place] 00 daily. Medical Branch hydrALAZINE 0 Yes [id number] 100mg Take 1 Univers 100 mg 8-03 tablet by ity of tablet 00:00: mouth 3 00 (three) Medical times Branch daily. hydrALAZINE Yes [id number] 100mg Take 1 Univers 100 mg 8-03 tablet by ity of tablet 00:00: mouth 3 00 (three) Medical times Branch daily. spironolact 0 Yes 25mg Take 1 Univ ers one 25 mg 4-07 tablet by ity o f tablet 00:00: mouth [place] 00 daily. Medical Branch spironolact 0 Yes 25mg Take 1 Univ ers one 25 mg 4-07 tablet by ity o f tablet 00:00: mouth 00 daily. Medical Branch tamsulosin 2019- Yes [id number] .4mg Take 1 Univers 0.4 mg 24 2-29 capsule by ity of hr capsule 00:00: mouth 2 [place] 00 (two) Medical times Branch daily. tamsulosin 2019-1 Yes [id number] .4mg Take 1 Univers 0.4 mg 24 2-29 capsule by ity of hr capsule 00:00: mouth 2 [place] 00 (two) Medical times Branch daily. pantoprazol 2020-0 Yes [id number] 40mg Take 1 Univers e 40 mg EC 9-03 tablet by ity of tablet 00:00: mouth 2 00 (two) Medical times Branch daily. pantoprazol 2020-0 Yes [id number] 40mg Take 1 Univers e 40 mg EC 9-03 tablet by ity of tablet 00:00: mouth 2 00 (two) Medical times Branch daily. aspirin 81 2020-0 Yes 81mg Take 1 Unive rs mg chewable 8-14 tablet by ity of tablet 00:00: mouth [place] 00 daily. Medical Branch aspirin 81 2020-0 Yes 81mg Take 1 Unive rs mg chewable 8-14 tablet by ity of tablet 00:00: mouth [place] 00 daily. Medical Branch meloxicam 2020-0 Yes 15mg Take 15 mg Un jimena 15 mg 8-04 by mouth. ity of tablet 00:00: [place] 00 Medical Branch meloxicam 2020-0 Yes 15mg Take 15 mg Un jimena 15 mg 8-04 by mouth. ity of tablet 00:00: [place] [facility] metoclopram Yes [id number] 1 tab Univers jm HCl 10 2-16 every 4hr ity of mg tablet 00:00: as needed [place] 00 for nausea Medical Branch metoclopram Yes [id number] 1 tab Univers jm HCl 10 2-16 every 4hr ity of mg tablet 00:00: as needed [place] 00 for nausea Medical Branch simvastatin 2018-08 Yes 20mg Take 20 mg Univers 20 mg 0-08 by mouth ity of tablet 00:00: daily. [place] [facility] simvastatin 2018-08 Yes 20mg Take 20 mg Univers 20 mg 0-08 by mouth ity of tablet 00:00: daily. [place] [facility] proMETHazin Yes [id number] 25mg Take 1 Univers e 25 mg 5-19 tablet by ity of tablet 00:00: mouth [place] 00 every 6 Medical (six) Branch hours as needed for Nausea and Vomiting (N/V). proMETHazin Yes [id number] 25mg Take 1 Univers e 25 mg 5-19 tablet by ity of tablet 00:00: mouth [place] every 6 Medical (six) Branch hours as needed for Nausea and Vomiting (N/V). fluticasone Yes 2{spray Use 2 Un jimena (FLONASE) 6-14 } Sprays in ity o f 50 00:00: each [place] mcg/actuati 00 nostril Medic al on nasal daily. Branch spray fluticasone Yes 2{spray Use 2 Un jimena (FLONASE) 6-14 } Sprays in ity o f 50 00:00: each [place] mcg/actuati 00 nostril Medic al on nasal daily. Branch spray Immunizations Ordered Filled Immunization Date Status Comments [facility] e Immunization Name Name SARS-COV-2 COVID-19 2021-12-11 Completed Unive rsity of MODERNA BOOSTER 00:00:00 [facility] ical VACCINE Branch SARS-COV-2 COVID-19 2020-11-19 Completed Unive rsity of LUIS/J&J VACCINE 00:00:00 [facility] SARS-COV-2 COVID-19 2020-11-19 Completed Unive rsity of LUIS/J&J VACCINE 00:00:00 [facility] Zoster Vaccine 2019-07-14 Completed University of Recombinant 00:00:00 [facility] Zoster(Zostavax)( 2019-07-14 Completed Unive rsity of ingles) 00:00:00 [facility] Zoster Vaccine 2019-07-14 Completed University of Recombinant 00:00:00 [facility] Zoster(Zostavax)( 2019-07-14 Completed Unive rsity of ingles) 00:00:00 [facility] Zoster Vaccine 2019-05-27 Completed University of Recombinant 00:00:00 [facility] Zoster(Zostavax)( 2019-05-27 Completed Unive rsity of ingles) 00:00:00 [facility] Zoster Vaccine 2019-05-27 Completed University of Recombinant 00:00:00 [facility] Zoster(Zostavax)( 2019-05-27 Completed Unive rsity of ingles) 00:00:00 [facility] MMR 2018-10-27 Completed University of 00:00:00 [facility] MMR 2018-10-27 Completed University of 00:00:00 [facility] Vital Signs Vital Name Observation Time Observation Value Comments Source Systolic blood 2021-11-23 16:35:00 155 mm[Hg] Univer sity of pressure [facility] Diastolic blood 2021-11-23 16:35:00 105 mm[Hg] Unive rsity of pressure [facility] Heart rate 2021-11-23 16:35:00 70 /min [facility] Body temperature 2021-11-23 16:30:[address] [facility] Respiratory rate 2021-11-23 16:30:00 20 /min [facility] Body height 2021-11-23 16:30:00 170.2 cm [facility] Body weight 2021-11-23 16:30:00 91.173 kg [facility] BMI 2021-11-23 16:30:00 31.48 kg/m2 [facility] Oxygen saturation in 2021-11-23 16:30:00 98 /min [facility] Arterial blood by [facility] Pulse oximetry Branch Procedures Procedure Date / Time Performed Performing Clinician Sourc e SARS-COV-2 COVID-19 2021-12-11 14:43:14 [facility]igned, [facility] [place] V[facility] Name [facility] BOOSTER,0.25ML,IM (MODERNA) POCT URINALYSIS AUTO 2021-11-23 16:34:00 Ta Vallejo [facility] Encounters Start End Encounter Admission Attending Care Care Encounter Source Date/Time Date/Time Type Type Clinicians Facility Department ID 2021-12-11 2021-12-11 Imm/Inj Vaccine, [facility] Family Medicine [facility] [id number] Univers 09:30:00 09:40:00 Visit Madhu Renee [id number] ity karyn [place] [id number] [place] [phone] [place] dical [facility] 044 [facility] 2021-12-11 2021-12-11 Outpatient [facility] [id number] Univers 09:30:00 09:30:00 [id number] [facility] 2021-12-11 2021-12-11 Outpatient R [facility] [id number] Univers 09:30:00 09:30:00 MADHU [facility] 2021-11-23 2021-11-23 [facility] [id number] Univers 11:00:00 11:57:22 Visit Ta CALDERON [id number] i ty karyn [place] [id number] [place] PROF[place] [id number] [place] dical NAL 204 [facility] 2021-11-21 2021-11-21 Emergency X Barron CHIN [facility] ERT [id number] Univers 17:52:00 21:24:00 [facility] 2020-09-07 2020-09-07 Telephone [facility] [id number] 00:00:00 00:00:00 Nidia Calderon [id number] Shawna [id number] Professio [phone] nal [address] [place] [address] 2020-08-23 2020-08-23 Telephone Lizbeth [facility] [id number] 00:00:00 00:00:00 Shreya Calderon [id number] [place] [id number] Professio [phone] [facility] 204 [facility] 2020-08-13 2020-08-13 Refill Lizbeth [facility] [id number] 00:00:00 00:00:00 Shreya Calderon [id number] [place] [id number] Professio [phone] [facility] 204 [facility] 2020-07-07 2020-07-07 Oven Stripper 2, Adc Lab [facility] [id number] 09:31:42 09:46:42 Visit Kevin [id number] [place] [id number] Professio [phone] [facility] 353 [facility] 2020-07-07 2020-07-07 Office [place], [facility] [id number] 08:49:59 09:28:44 Visit Emmiemaria del carmen Calderon [id number] [place] [id number] Professio [phone] [facility] 085 [facility] Results Test Description Test Time Test Comments Results Result Comments Source POCT URINALYSIS, INSTRUMENT 2021-11-23 16:35:00 Test Item Value Reference Range Interpretation Comme nts POCT U SP GRAV (test code = 3255) 1.020 mg/dl 1.005-1.025 POCT PH U (test code = 3254) 6.0 mg/dl 5-8 POCT U LEUK EST (test code = 3263) Negative Negative - Negative POCT U NIT (test code = 3262) Negative Negative - Negative POCT U PROT (test code = 3259) Negative - Negative POCT U GLU (test code = 3256) Negative Negative - Negative POCT U KETONE (test code = 3258) Negative Negative - Negative POCT U UROBILI (test code = 3260) 1.0 mg/dl 0.2-1 POCT U BILI (test code = 3261) Negative Negative - Negative POCT U BLD (test code = 3257) Trace Negative - Negative POCT U COLOR (test code = 3266) yellow POCT U APPEAR (test code = 3267) clear Lab Interpretation (test code = 15327-2) Abnormal [facility]
[2021-12-13 22:29] LABS: Urine Blood 3+ (Negative); Urine Glucose Negative (Negative); Urine Protein 2+ (Negative); Urine Specific Gravity >=1.030 (1.005-1.030)
--- NOTE | 2021-12-13 22:44 | ER ---
Nurse's Notes [facility] Name: Lucille King Age: 61 yrs Sex: Male : 1960 Arrival Date: 12/13/2021 Time: 21:58 Bed 7 Private MD: Diagnosis: UTI/ Urinary tract infection, site not specified;Cystitis, unspecified with hematuria Presentation: 12/13 22:12 Chief complaint: Patient states: I noticed blood in my urine and I wiped the my penis jb4 and noticed blood. It started last night and I started having chills. When I woke, I noticed I was soaked in sweat. The pain is on my left side. Coronavirus screen: At this time, the client does not indicate any symptoms associated with coronavirus-19. Ebola Screen: No symptoms or risks identified at this time. Initial Sepsis Screen: Does the patient meet any 2 criteria? No. Patient's initial sepsis screen is negative. Does the patient have a suspected source of infection? Yes: Dysuria/Frequency/Urgency/UTI. Risk Assessment: Do you want to hurt yourself or someone else? Patient reports no desire to harm self or others. Onset of symptoms was December 13, 2021. Transition of care: patient was not received from another setting of care. 22:12 Method Of Arrival: Ambulatory jb4 22:12 Acuity: DANISHA 3 jb4 Historical: - Allergies: 22:15 Augmentin; jb4 22:15 Bactrim; jb4 22:15 Cipro; jb4 22:15 Lisinopril; jb4 - PMHx: 22:15 Anxiety; Hypertension; Panic Attacks; Depression; Hyperlipidemia; born with 1 kidney; jb4 pulmonary embolis; Bipolar disorder; renal insufficiency; Asthma; - Immunization history:: Adult Immunizations up to date. - Social history:: Smoking status: Patient denies any tobacco usage or history of. - Family history:: not pertinent. - Hospitalizations: : No recent hospitalization is reported. Screenin:01 Abuse screen: Denies threats or abuse. Denies injuries from another. Nutritional as6 screening: No deficits noted. Tuberculosis screening: No symptoms or risk factors identified. Fall Risk None identified. Assessment: 23:00 General: Appears in no apparent distress. Behavior is calm, cooperative. Pain: Denies as6 pain. Neuro: Level of Consciousness is awake, alert, obeys commands, Oriented to person, place, time, situation. Cardiovascular: Capillary refill < 3 seconds Patient's skin is warm and dry. Respiratory: Airway is patent Trachea midline Respiratory effort is even, unlabored, Respiratory pattern is regular, symmetrical. : Reports blood in urine. Vital Signs: 22:12 BP 167 / 92; Pulse 66; Resp 16; Temp 98.7(TE); Pulse Ox 99% on R/A; Weight 90.72 kg jb4 (R); Height 5 ft. 7 in. (170.18 cm) (R); Pain 8/10; 22:12 Body Mass Index 31.32 (90.72 kg, 170.18 cm) jb4 ED Course: 21:58 Patient arrived in ED. bp1 21:58 Daniel Joshi MD is Attending Physician. rn 22:11 David Menezes, KEELEY is Primary Nurse. as6 22:15 Triage completed. jb4 22:15 Arm band placed on right wrist. jb4 23:01 Bed in low position. as6 23:01 No provider procedures requiring assistance completed. Patient did not have IV access as6 during this emergency room visit. Administered Medications: 22:56 Drug: Rocephin (cefTRIAXone) 1 grams Route: IM; Site: left ventrogluteal; as6 23:02 Follow up: Response: No adverse reaction as6 Outcome: 22:44 Discharge ordered by . rn 23:01 Discharged to home ambulatory. as6 23:01 Condition: stable 23:01 Discharge instructions given to patient, Instructed on discharge instructions, follow up and referral plans. Demonstrated understanding of instructions, follow-up care, medications, Prescriptions given X 1. 23:02 Patient left the ED. as6 Signatures: Daniel Joshi MD MD rn Bryson, James, RN RN jb4 Desiree Foster bp1 David Menezes RN RN as6
--- NOTE | 2021-12-13 22:44 | EDPHYS ---
Physician Documentation [facility] Name: Lucille King Age: 61 yrs Sex: Male : 1960 Arrival Date: 12/13/2021 Time: 21:58 Bed 7 Private MD: ED Physician Daniel Joshi HPI: 12/13 22:26 This 61 yrs old Black Male presents to ER via Ambulatory with complaints of Blood in rn Urine. 22:26 The patient presents with urinary symptoms, dysuria, hematuria. Onset: The rn symptoms/episode began/occurred yesterday. Modifying factors: The symptoms are alleviated by nothing, the symptoms are aggravated by urinating. Associated signs and symptoms: Pertinent positives: abdominal pain, hematuria, Pertinent negatives: constipation, diarrhea, fever. Severity of symptoms: At their worst the symptoms were mild, in the emergency department the symptoms are unchanged. The patient has experienced similar episodes in the past. The patient has not recently seen a physician. Pt reports blood in urine, small amount, began yesterday, assoc with dysuria. Reports feels nothing like his previous kidney stones. Reports has had several urine infections and feels more like that. Denies fever but reports chills. NO trauma. . Historical: - Allergies: 22:15 Augmentin; jb4 22:15 Bactrim; jb4 22:15 Cipro; jb4 22:15 Lisinopril; jb4 - PMHx: 22:15 Anxiety; Hypertension; Panic Attacks; Depression; Hyperlipidemia; born with 1 kidney; jb4 pulmonary embolis; Bipolar disorder; renal insufficiency; Asthma; - Immunization history:: Adult Immunizations up to date. - Social history:: Smoking status: Patient denies any tobacco usage or history of. - Family history:: not pertinent. - Hospitalizations: : No recent hospitalization is reported. ROS: 22:26 Constitutional: Negative for fever, and weight loss, Eyes: Negative for injury, pain, rn redness, and discharge, Neck: Negative for injury, pain, and swelling, Cardiovascular: Negative for chest pain, palpitations, and edema, Respiratory: Negative for shortness of breath, cough, wheezing, and pleuritic chest pain, Abdomen/GI: Negative for abdominal pain, nausea, vomiting, diarrhea, and constipation, Back: Negative for injury and pain, : + hematuria and dysuria MS/Extremity: Negative for injury and deformity, Skin: Negative for injury, rash, and discoloration, Neuro: Negative for headache, weakness, numbness, tingling, and seizure. Exam: 22:26 Constitutional: This is a well developed, well nourished patient who is awake, alert, rn and in no acute distress. Ambulatory to room without difficulty. No apparent pain. Head/Face: Normocephalic, atraumatic. Eyes: Periorbital areas with no swelling, redness, or edema. Cardiovascular: Regular rate and rhythm. No pulse deficits. Respiratory: No increased work of breathing, no retractions or nasal flaring. Abdomen/GI: Soft, non-tender Back: No spinal tenderness. No costovertebral tenderness. Full range of motion. Skin: Warm, dry, no cyanosis MS/ Extremity: Pulses equal, no cyanosis. Neurovascular intact. Full, normal range of motion. Equal circumference. Neuro: Awake and alert, GCS 15, oriented to person, place, time, and situation. Motor strength 5/5 in all extremities. Cerebellar exam normal. Normal gait. Vital Signs: 22:12 BP 167 / 92; Pulse 66; Resp 16; Temp 98.7(TE); Pulse Ox 99% on R/A; Weight 90.72 kg jb4 (R); Height 5 ft. 7 in. (170.18 cm) (R); Pain 8/10; 22:12 Body Mass Index 31.32 (90.72 kg, 170.18 cm) jb4 MDM: 21:58 Patient medically screened. rn 22:42 Differential diagnosis: UTI, urethritis, cystitis. Data reviewed: vital signs, nurses rn notes, old medical records, lab test result(s), and as a result, I will discharge patient. Counseling: I had a detailed discussion with the patient and/or guardian regarding: the historical points, exam findings, and any diagnostic results supporting the discharge/admit diagnosis, lab results, the need for outpatient follow up, to return to the emergency department if symptoms worsen or persist or if there are any questions or concerns that arise at home. Special discussion: I discussed with the patient/guardian in detail that at this point there is no indication for admission to the hospital. It is understood, however, that if the symptoms persist or worsen the patient needs to return immediately for re-evaluation. ED course: Pt still comfortable, no pain, using headphones and mobile phone on reeval, will treat as UTI given hx of UTI/small hematuria. Return precautions given and understood.. 12/13 22:09 Order name: Urine Culture rn 12/13 22:09 Order name: Urine Microscopic Only rn 12/13 22:09 Order name: Urine Dipstick-Ancillary (obtain specimen); Complete Time: 22:29 rn 12/13 22:29 Order name: Urine Dipstick-Ancillary; Complete Time: 22:34 EDMS Administered Medications: 22:56 Drug: Rocephin (cefTRIAXone) 1 grams Route: IM; Site: left ventrogluteal; as6 23:02 Follow up: Response: No adverse reaction as6 Disposition Summary: 12/13/21 22:44 Discharge Ordered Location: Home rn Problem: new rn Symptoms: have improved rn Condition: Stable rn Diagnosis - UTI/ Urinary tract infection, site not specified rn - Cystitis, unspecified with hematuria rn Followup: rn - With: Private Physician - When: As needed - Reason: Recheck today's complaints, Re-evaluation by your physician Discharge Instructions: - Discharge Summary Sheet rn - Hematuria, Adult rn - Urinary Tract Infection, Adult rn Forms: - Medication Reconciliation Form rn - Thank You Letter rn - 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
[2021-12-13] MEDS ORDERED: CEFTRIAXONE 1000 MG/VIAL ONE (22:54)
[2021-12-13 23:15] LABS: Urine Bacteria <20 /HPF (NONE SEEN); Urine RBC >50 /HPF (NONE SEEN)
[2021-12-13 23:16] LABS: Urine Sperm PRESENT (NONE SEEN)
[2021-12-14 04:44] VITALS: BP 167/92; TEMP 98.7; O2SAT 99
== END 2021-12-13 23:02 | disposition home or self-care (01) ==
LOC: ER 21:55
DX: N30.91 Cystitis, unspecified with hematuria (principal); F41.9 Anxiety disorder, unspecified; I10 Essential (primary) hypertension; E78.5 Hyperlipidemia, unspecified; J45.909 Unspecified asthma, uncomplicated; N28.9 Disorder of kidney and ureter, unspecified; Z88.1 Allergy status to other antibiotic agents; Z88.8 Allergy status to other drugs, medicaments and biological substances
CPT/HCPCS: 81003; 81015; 87086; 87088; 96372; 99283

== ENCOUNTER 2024-09-04 13:42 | Emergency (ER) | payer OTHER ==
[2024-09-04 14:45] LABS: Specific Gravity 1.025 (1.005-1.030); Sqamous Epithelial None Seen /HPF (None Seen); Urine Bacteria None Seen /HPF (<20); Urine Bilirubin NEGATIVE (Negative); Urine Blood 1+ (Negative); Urine Clarity Extremely Turbid (Clear); Urine Color Yellow (Yellow); Urine Crystals Unidentified Few /HPF (None Seen); Urine Culture Reflex Order REFLEXED; Urine Glucose NEGATIVE (Negative); Urine Ketones NEGATIVE (Negative); Urine Microscopic Reflex YN ORDER UMIC; Urine Nitrite NEGATIVE (Negative); Urine Protein TRACE (Negative); Urine Urobilinogen Normal (Normal); Urine WBC >50 /HPF (<5); Urine WBC Clump Occasional /HPF (None Seen); Urine Yeast (Budding) Trace /HPF (None Seen); Urine pH 6.5 (5.0-7.0)
--- NOTE | 2024-09-04 15:17 | RAD REPORT ---
EXAMINATION: TWO VIEW CHEST XR CLINICAL INDICATION: Male, 64 years old. [facility] MAIN COUGH Bed Name: [facility] TECHNIQUE: 2 view radiographs of the chest were performed. COMPARISON: 05/15/2019 FINDINGS: The lungs are well inflated and clear. No pneumothorax or sizable effusion. The heart is normal in si ze. Mediastinal contours are unremarkable. IMPRESSION: No acute or significant abnormalities.
--- NOTE | 2024-09-04 15:33 | EDPHYS ---
Physician Documentation [facility] Name: Lucille King Age: 64 yrs Sex: Male : 1960 Arrival Date: 09/04/2024 Time: 13:42 Bed 16 Private MD: ED Physician Abram Veloz HPI: 09/04 16:09 This 64 yrs old Black Male presents to ER via Ambulatory with complaints of Pain With kb Urination. 16:09 Pt is a 64 year old male who presents for urinary frequency, pain with urination and kb cough that started a week ago and hasn't improved with otc medications. Denies fever, abd pain, n/v, flank pain. Historical: - Allergies: 14:08 Augmentin; tm6 14:08 Bactrim; tm6 14:08 Cipro; tm6 14:08 Lisinopril; tm6 - PMHx: 14:08 Anxiety; Asthma; Bipolar disorder; Bipolar disorder; born with 1 kidney; Depression; tm6 Hyperlipidemia; Hyperlipidemia; Hypertension; Panic Attacks; pulmonary embolis; renal insufficiency; - PSHx: 14:08 None; tm6 - Immunization history:: Flu vaccine is not up to date. - Infectious Disease History:: Denies. - Social history:: Smoking status: Patient denies any tobacco usage or history of. ROS: 14:19 Constitutional: As per HPI kb Exam: 14:19 Constitutional: This is a well developed, well nourished patient who is awake, alert, kb and in no acute distress. Head/Face: Normocephalic, atraumatic. ENT: Moist Mucous membranes Cardiovascular: Regular rate Respiratory: Respirations even and unlabored. No increased work of breathing. Talking in full sentences Back: No spinal tenderness. No costovertebral tenderness. Full range of motion. Skin: Warm, dry with normal turgor. Normal color. MS/ Extremity: Pulses equal, no cyanosis. Neurovascular intact. Full, normal range of motion. Neuro: Awake and alert, GCS 15, oriented to person, place, time, and situation. 14:19 Abdomen/GI: Inspection: abdomen appears normal, Palpation: soft, in all quadrants, mild abdominal tenderness, in the suprapubic area, Vital Signs: 14:07 BP 148 / 80; Pulse 53; Resp 17; Temp 98.1(O); Pulse Ox 99% on R/A; MAP 99 mmHg; Weight tm6 87.09 kg; Height 5 ft. 7 in. ; Pain 8/10; 14:07 Body Mass Index 30.07 (87.09 kg, 170.18 cm) tm6 14:07 Pain Scale: Adult tm6 MDM: 13:45 Medical Screening Exam initiated kb 16:08 Differential diagnosis: viral Infection, URI, bronchitis, pneumonia UTI, kb pyelonephritis. Data reviewed: vital signs, nurses notes. Test considered but Not performed: Other Details cbc, cmp and ct considered but pt is nontoxic in appearance, afebrile, has history of UTIs and prostate issues. . Counseling: I had a detailed discussion with the patient and/or guardian regarding the historical points, exam findings, and any diagnostic results supporting the discharge/admit diagnosis, lab results, radiology results, the need for outpatient follow up, a family practitioner, to return to the emergency department if symptoms worsen or persist or if there are any questions or concerns that arise at home. 09/04 14:16 Order name: Urinalysis w/ reflexes; Complete Time: 14:50 kb 09/04 14:51 Order name: Urine Culture EDMS 09/04 14:16 Order name: Chest Pa And Lat (2 Views) XRAY; Complete Time: 15:18 kb Administered Medications: 15:54 Drug: Cephalexin PO 500 mg PO once Route: PO; aa5 15:54 Follow up: Response: Medication administered at discharge. aa5 Disposition: 15:32 I was immediately available on-site in the Emergency Department for consultation in the ms3 care of the patient. Disposition Summary: 09/04/24 15:33 Discharge Ordered Notes: Location: Home kb Condition: Stable kb Diagnosis - UTI/ Urinary tract infection, site not specified kb Followup: kb - With: Emergency Department - When: As needed - Reason: Worsening of condition Followup: kb - With: Private Physician - When: 2 - 3 days - Reason: Recheck today's complaints, Continuance of care, Re-evaluation by your physician Discharge Instructions: - Discharge Summary Sheet kb - Urinary Tract Infection, Adult, Swas-yr-Hgiv kb Forms: - Medication Reconciliation Form kb - Antibiotic Education kb - Prescription Opioid Use kb - Patient Portal Instructions kb - Leadership Thank You Letter kb Prescriptions: - Cephalexin 500 mg Oral Capsule - take 1 capsule ORAL route every 8 hours for 10 days; 30 capsule; Refills: 0, kb Product Selection Permitted - Zofran 4 mg Oral tablet - take 1 tablet ORAL route every 6 hours As needed; 12 tablet; Refills: 0, kb Product Selection Permitted Signatures: Dispatcher [employer] EDKimberly Zazueta, Julieta Hicks RN RN aa5 Abram Veloz DO DO ms3 Rupali Odom RN RN tm6 Corrections: (The following items were deleted from the chart) 14:16 14:16 Urinalysis+U.LAB.BRZ ordered. EDMI EDMI
--- NOTE | 2024-09-04 15:33 | ER ---
Nurse's Notes [facility] Name: Lucille King Age: 64 yrs Sex: Male : 1960 Arrival Date: 09/04/2024 Time: 13:42 Bed 16 Private MD: Diagnosis: UTI/ Urinary tract infection, site not specified Presentation: 09/04 14:08 Chief complaint: Patient states: x3 days pain with urination, urinary frequency, lower tm6 back pain both sides. Painful cough. N/V. 14:09 Coronavirus screen: Client denies travel out of the [place] in the last 14 days. Ebola tm6 Screen: Patient negative for fever greater than or equal to 101.5 degrees Fahrenheit, and additional compatible Ebola Virus Disease symptoms Patient denies exposure to infectious person. Patient denies travel to an Ebola-affected area in the 21 days before illness onset. No symptoms or risks identified at this time. Initial Sepsis Screen: Does the patient meet any 2 criteria? No. Patient's initial sepsis screen is negative. Does the patient have a suspected source of infection? No. Patient's initial sepsis screen is negative. Risk Assessment: Do you want to hurt yourself or someone else? Patient reports no desire to harm self or others. Onset of symptoms was September 01, 2024. 14:09 Method Of Arrival: Ambulatory tm6 14:09 Acuity: DANISHA 3 tm6 Triage Assessment: 14:09 General: Appears in no apparent distress. Behavior is calm, cooperative. Pain: tm6 Complains of pain in low back area. EENT: No signs and/or symptoms were reported regarding the EENT system. Neuro: Level of Consciousness is awake, alert, obeys commands, Oriented to person, place, time, situation. Cardiovascular: Patient's skin is warm and dry. Respiratory: Airway is patent Respiratory effort is even, unlabored, Respiratory pattern is regular, symmetrical. GI: Abdomen is round non-distended, Reports nausea, vomiting. : Reports burning with urination, urinary frequency. Derm: No signs and/or symptoms reported regarding the dermatologic system. Musculoskeletal: Reports pain in low back area. Historical: - Allergies: 14:08 Augmentin; tm6 14:08 Bactrim; tm6 14:08 Cipro; tm6 14:08 Lisinopril; tm6 - PMHx: 14:08 Anxiety; Asthma; Bipolar disorder; Bipolar disorder; born with 1 kidney; Depression; tm6 Hyperlipidemia; Hyperlipidemia; Hypertension; Panic Attacks; pulmonary embolis; renal insufficiency; - PSHx: 14:08 None; tm6 - Immunization history:: Flu vaccine is not up to date. - Infectious Disease History:: Denies. - Social history:: Smoking status: Patient denies any tobacco usage or history of. Screenin:00 [facility] ED Fall Risk Assessment (Adult) History of falling in the last 3 months, aa5 including since admission No falls in past 3 months (0 pts) Confusion or Disorientation No (0 pts) Intoxicated or Sedated No (0 pts) Impaired Gait No (0 pts) Mobility Assist Device Used No (0 pt) Altered Elimination No (0 pt) Score/Fall Risk Level 0 - 2 = Low Risk Oriented to surroundings, Maintained a safe environment, Educated pt \T\ family on fall prevention, incl call for assistance when getting out of bed. Abuse screen: Denies threats or abuse. Nutritional screening: No deficits noted. Tuberculosis screening: No symptoms or risk factors identified. Assessment: 15:00 General: Appears comfortable, Behavior is calm, cooperative. Pain: Denies pain. Neuro: aa5 Level of Consciousness is awake, alert, obeys commands, Oriented to person, place, time, situation. Cardiovascular: Patient's skin is warm and dry. Respiratory: Airway is patent Respiratory effort is even, unlabored, Respiratory pattern is regular, symmetrical. GI: No signs and/or symptoms were reported involving the gastrointestinal system. : Reports pain with urination, urinary frequency. EENT: No signs and/or symptoms were reported regarding the EENT system. Derm: Skin is dry, Skin is normal, Skin temperature is warm. Musculoskeletal: Range of motion: intact in all extremities. 16:05 Neuro: Level of Consciousness is awake, alert, obeys commands, Oriented to person, aa5 place, time, situation. Respiratory: Airway is patent Respiratory effort is even, unlabored, Respiratory pattern is regular, symmetrical. Derm: Skin is dry, Skin is normal, Skin temperature is warm. Vital Signs: 14:07 BP 148 / 80; Pulse 53; Resp 17; Temp 98.1(O); Pulse Ox 99% on R/A; MAP 99 mmHg; Weight tm6 87.09 kg; Height 5 ft. 7 in. ; Pain 8/10; 14:07 Body Mass Index 30.07 (87.09 kg, 170.18 cm) tm6 14:07 Pain Scale: Adult tm6 ED Course: 13:44 Patient arrived in ED. ra3 13:45 [facility]-C [facility] kb 13:45 Abram Veloz DO is Attending Physician. kb 14:09 Arm band placed on right wrist. tm6 14:10 Triage completed. tm6 14:27 Urinalysis w/ reflexes Sent. tm6 14:47 Chest Pa And Lat (2 Views) XRAY In Process Unspecified. EDMS 14:52 Patient placed in an exam room, on a stretcher. ll1 14:54 Julieta Newton, RN is Primary Nurse. aa5 15:00 Patient has correct armband on for positive identification. Bed in low position. Call aa5 light in reach. Side rails up X 1. 16:05 No provider procedures requiring assistance completed. Patient did not have IV access aa5 during this emergency room visit. Administered Medications: 15:54 Drug: Cephalexin PO 500 mg PO once Route: PO; aa5 15:54 Follow up: Response: Medication administered at discharge. aa5 Medication: 15:54 VIS not applicable for this client. aa5 Outcome: 15:33 Discharge ordered by MD. kb 16:05 Discharged to home ambulatory, aa5 16:05 Condition: stable 16:05 Discharge instructions given to patient, Instructed on discharge instructions, follow up and referral plans. medication usage, Demonstrated understanding of instructions, follow-up care, medications, Prescriptions given X 2, 16:06 Patient left the ED. aa5 Signatures: Dispatcher [employer] EDAR Kimberly Yeung FNP-C FNP-Ckb Calderon, Audri, RN RN aa5 Freddie Yanez RN RN ll1 Rupali Odom RN RN tm6 Paige Briggs ra3 Corrections: (The following items were deleted from the chart) 14:10 14:08 Chief complaint: Patient states: x3 days pain with urination, lower back pain tm6 both sides. Painful cough. N/V. tm6
[2024-09-04] MEDS ORDERED: CEPHALEXIN 250 MG CAP ONE (15:41)
[2024-09-04 16:31] VITALS: BP 148/80; TEMP 98.1; O2SAT 99
== END 2024-09-04 16:06 | disposition home or self-care (01) ==
LOC: ER 13:42
DX: N39.0 Urinary tract infection, site not specified (principal)
CPT/HCPCS: 71046; 81001; 87086; 87088; 99283